=== PATIENT | male | born 1950 | race Caucasian/White ===

== ENCOUNTER 2018-06-05 15:18 | Inpatient (IN) | payer MEDICARE ==
[2018-06-05 17:39] LABS: WHITE BLOOD COUNT 8.1 10^3/ul (4.8-10.8)
[2018-06-05 17:39] LABS: ABNORMAL IP MESSAGE 1; BASOPHILS % 0.2 % (0.0-2.0); HEMATOCRIT 36.2 % (42.0-52.0); HEMOGLOBIN 11.5 g/dl (14.0-18.0); LYMPHOCYTES # 0.6 10^3/ul (0.8-2.9); LYMPHOCYTES % 7.2 % (15.0-51.0); MEAN CORPUSCULAR HEMOGLOBIN 26.6 pg (29.0-33.0); MEAN CORPUSCULAR HGB CONC 31.8 g/dl (32.0-37.0); MEAN CORPUSCULAR VOLUME 83.8 fl (82.0-101.0); MONOCYTES % 11.9 % (0.0-11.0); NEUTROPHIL # 6.5 10^3/ul (1.6-7.5); NEUTROPHILS % 80.3 % (39.0-77.0); PLATELET COUNT 217 10^3/UL (140-415); POSITIVE DIFF @See below; RED BLOOD COUNT 4.32 10^6/ul (4.70-6.10); RED CELL DISTRIBUTION WIDTH 15.7 % (11.5-14.5)
[2018-06-05 17:42] LABS: ADD MAN DIFF? NO
[2018-06-05 17:58] LABS: INR 2.04; PROTIME 23.1 Sec (11.9-14.9); PT RATIO 1.8
[2018-06-05 17:59] LABS: PARTIAL THROMBOPLASTIN TIME 49.3 Sec (23.0-35.0)
[2018-06-05 18:01] LABS: ALANINE AMINOTRANSFERASE 25 IU/L (13-69); ALBUMIN 3.7 g/dl (3.3-4.9); ALBUMIN/GLOBULIN RATIO 1.12; ALKALINE PHOSPHATASE 106 IU/L (42-121); ANION GAP 11 (5-13); ASPARTATE AMINO TRANSFERASE 30 IU/L (15-46); BILIRUBIN,INDIRECT 0.7 mg/dl (0-1.1); BILIRUBIN,TOTAL 0.7 mg/dl (0.2-1.3); BLOOD UREA NITROGEN 16 mg/dl (7-20); CALCIUM 8.8 mg/dl (8.4-10.2); CARBON DIOXIDE 29 mmol/L (21-31); CHLORIDE 94 mmol/L (97-110); CREATININE 0.81 mg/dl (0.61-1.24); Estimated GFR > 60 mL/min (>60); GLUCOSE 136 mg/dl (70-220); LIPASE 16 U/L (23-300); POTASSIUM 3.7 mmol/L (3.5-5.1); SODIUM 134 mmol/L (135-144)
[2018-06-05] MEDS: IPRATROPIUM (NEB) 0.5 MG/2.5 ML AMP INH (18:02)
[2018-06-05] MEDS: ALBUTEROL 0.083% (NEB) 2.5 MG/3 ML AMP INH (18:02)
[2018-06-05 18:08] LABS: B-TYPE NATRIURETIC PEPTIDE 5540 PG/ML (0-125)
[2018-06-05 18:12] LABS: TROPONIN-I 0.053 ng/ml (0.000-0.120)
[2018-06-05] MEDS ORDERED: HYDROCODONE/APAP (5/325) TAB PO (18:30)
[2018-06-05] MEDS ORDERED: ACETAMINOPHEN 325 MG TAB PO (18:30)
[2018-06-05] MEDS ORDERED: NITROGLYCERIN (SL) 0.4 MG TAB SL (18:30)
[2018-06-05] MEDS ORDERED: NACL 0.9% 3 ML SYG IV (18:30)
[2018-06-05] MEDS ORDERED: LORAZEPAM 4 MG/ML VIAL IV (18:30)
[2018-06-05] MEDS ORDERED: ALBUTEROL/IPRATROPIUM (NEB) 3 ML AMP HHN (18:30)
[2018-06-05] MEDS ORDERED: hydrALAzine 20 MG INJ IV (18:30)
[2018-06-05] MEDS ORDERED: ONDANSETRON 4 MG INJ IV (18:30)
[2018-06-05] MEDS ORDERED: MAGNESIUM HYDROXIDE 30ML CUP PO (18:30)
[2018-06-05] MEDS ORDERED: morphine SULFATE/PF (2 MG/2 ML) SYG IV (18:30)
[2018-06-05] MEDS ORDERED: DOCUSATE SODIUM 100 MG CAP PO (18:30)
[2018-06-05 19:04] LABS: FREE T4 (FREE THYROXINE) 1.15 ng/dl (0.78-2.44)
[2018-06-05] MEDS: NITROGLYCERIN (SL) 0.4 MG TAB SL (20:16)
[2018-06-05] MEDS: FUROSEMIDE 40 MG INJ IV (20:19)
[2018-06-05 20:25] LABS: AADO2 Arterial 517.9 mmHg (7.0-24.0); Allen Test ACCEPTAB; Arterial Base Excess 1.2 mmol/L (-3.0-3); Arterial Blood Gas Oxygen Sat 99.1 mmHG (95.0-98.0); Arterial COHb 1.3 % (0.0-3.0); Arterial Fraction of Oxyhgb 97.6 % (93.0-99.0); Arterial MetHb 0.2 % (0.0-1.5); Arterial pCO2 41.7 mmhg (35-45); Blood Gas IEPAP 15/5; MODE BIPAP; Site Right Radial
[2018-06-05] MEDS ORDERED: GLUCOSE GEL 15 GRAM TUBE PO ×2 (21:00)
[2018-06-05] MEDS ORDERED: INSULIN ASPART [NOVOLOG] 3 ML PEN SC (21:00)
[2018-06-05] MEDS ORDERED: GLUCOSE GEL 15 GRAM TUBE BUCCAL (21:00)
[2018-06-05] MEDS ORDERED: DEXTROSE 50% 50 ML SYRINGE IV ×2 (21:00)
[2018-06-05] MEDS ORDERED: GLUCAGON 1 MG INJ IM (21:00)
[2018-06-05] MEDS ORDERED: ATORVASTATIN 80 MG TAB PO (21:00)
[2018-06-05 21:24] LABS: LACTIC ACID 2.4 mmol/L (0.5-2.0)
[2018-06-05] MEDS: INSULIN GLARGINE [LANTus] (100 UNITS/ML) SYG SC (21:30)
[2018-06-05] MEDS ORDERED: LORAZEPAM 0.5 MG TAB PO (21:30)
[2018-06-05 21:41] LABS: AADO2 Arterial 116.5 mmHg (7.0-24.0); Allen Test ACCEPTAB; Arterial Base Excess 2.5 mmol/L (-3.0-3); Arterial Blood Gas Oxygen Sat 96.8 mmHG (95.0-98.0); Arterial COHb 1.5 % (0.0-3.0); Arterial Fraction of Oxyhgb 95.2 % (93.0-99.0); Arterial HCO3 27.4 mmol/L (22.0-26.0); Arterial MetHb 0.2 % (0.0-1.5); Arterial pCO2 43.4 mmhg (35-45); MODE NASAL CANNULA; Site Right Radial
[2018-06-05] MEDS: TAMSULOSIN (SR) 0.4 MG CAP PO (22:29)
[2018-06-05] MEDS: WARFARIN 10 MG TAB PO (22:29)
[2018-06-05] MEDS: ATORVASTATIN 80 MG TAB PO (22:29)
[2018-06-05] MEDS: POTASSIUM CHLORIDE (SR) 10 MEQ TAB PO (22:30)
[2018-06-05] MEDS: LEVOFLOXACIN 500 MG TAB PO (22:32)
[2018-06-06] MEDS ORDERED: ACCU-CHEK XX (02:00)
[2018-06-06] MEDS: ALBUTEROL/IPRATROPIUM (NEB) 3 ML AMP HHN ×4 (02:57→19:46)
[2018-06-06] MEDS: LEVOFLOXACIN 500 MG TAB PO (05:59)
[2018-06-06] MEDS: PANTOPRAZOLE (EC) 40 MG TAB PO (05:59)
[2018-06-06] MEDS: FUROSEMIDE 40 MG INJ IV ×2 (06:00→17:22)
[2018-06-06 06:01] LABS: ADD MAN DIFF? NO; BASOPHILS % 0.4 % (0.0-2.0); EOSINOPHILS % 0.1 % (0.0-7.0); HEMOGLOBIN 11.3 g/dl (14.0-18.0); LYMPHOCYTES # 0.8 10^3/ul (0.8-2.9); LYMPHOCYTES % 10.3 % (15.0-51.0); MEAN CORPUSCULAR HGB CONC 32.3 g/dl (32.0-37.0); MEAN CORPUSCULAR VOLUME 83.5 fl (82.0-101.0); MONOCYTE # 1.2 10^3/ul (0.3-0.9); MONOCYTES % 15.6 % (0.0-11.0); NEUTROPHIL # 5.6 10^3/ul (1.6-7.5); NEUTROPHILS % 73.1 % (39.0-77.0); PLATELET COUNT 208 10^3/UL (140-415); RED BLOOD COUNT 4.19 10^6/ul (4.70-6.10)
[2018-06-06 06:01] LABS: WHITE BLOOD COUNT 7.7 10^3/ul (4.8-10.8)
[2018-06-06 06:29] LABS: CHOLESTEROL 105 mg/dl (100-200)
[2018-06-06 06:29] LABS: CHOL/HDL RATIO 2.9 RATIO; HDL CHOLESTEROL 36 mg/dl (31-75); LDL CHOLESTEROL,CALCULATED 51 mg/dl; TRIGLYCERIDES 88 mg/dl (0-149)
[2018-06-06 06:33] LABS: HEMOGLOBIN A1C 7.6 % (0-5.9)
[2018-06-06 06:34] LABS: INR 1.98; PROTIME 22.6 Sec (11.9-14.9); PT RATIO 1.8
[2018-06-06 06:40] LABS: ANION GAP 10 (5-13); BLOOD UREA NITROGEN 18 mg/dl (7-20); CALCIUM 8.7 mg/dl (8.4-10.2); CARBON DIOXIDE 30 mmol/L (21-31); CHLORIDE 94 mmol/L (97-110); CREATININE 0.92 mg/dl (0.61-1.24); Estimated GFR > 60 mL/min (>60); GLUCOSE 148 mg/dl (70-220); MAGNESIUM 1.5 mg/dl (1.7-2.5); PHOSPHORUS 3.7 mg/dl (2.5-4.9); POTASSIUM 4.1 mmol/L (3.5-5.1); SODIUM 134 mmol/L (135-144)
[2018-06-06] MEDS: INSULIN ASPART [NOVOLOG] 3 ML PEN SC ×3 (07:42→16:39)
[2018-06-06] MEDS: metFORMIN 500 MG TAB PO ×3 (07:43→17:22)
[2018-06-06 08:22] LABS: LACTIC ACID 1.3 mmol/L (0.5-2.0)
[2018-06-06] MEDS: ASPIRIN (EC) 81 MG TAB PO (08:39)
[2018-06-06] MEDS: POTASSIUM CHLORIDE (SR) 10 MEQ TAB PO ×2 (08:39→20:29)
[2018-06-06] MEDS: FLUOXETINE 20 MG CAP PO (08:39)
[2018-06-06] MEDS: AMLODIPINE 10 MG TAB PO (08:40)
[2018-06-06] MEDS: LINAGLIPTIN 5 MG TABLET PO (12:44)
[2018-06-06] MEDS: WARFARIN 2.5 MG TAB PO (13:05)
[2018-06-06] MEDS: LISINOPRIL 10 MG TAB PO (13:05)
[2018-06-06] MEDS: WARFARIN 10 MG TAB PO (13:05)
[2018-06-06 13:25] LABS: ADD UMIC YES; UR ASCORBIC ACID NEGATIVE (NEGATIVE); UR BACTERIA FEW /HPF (NONE SEEN); UR BILIRUBIN (Dip) NEGATIVE (NEGATIVE); UR BLOOD (Dip) 2+ mg/dL (NEGATIVE); UR CLARITY CLEAR (CLEAR); UR COLOR YELLOW (YELLOW); UR GLUCOSE (Dip) 1+ mg/dL (NEGATIVE); UR KETONES (Dip) TRACE mg/dL (NEGATIVE); UR LEUKOCYTE ESTERASE (Dip) NEGATIVE Leu/ul (NEGATIVE); UR NITRITE (Dip) NEGATIVE (NEGATIVE); UR RBC 2 /HPF (0-5); UR SPECIFIC GRAVITY (Dip) 1.011 (1.003-1.030); UR TOTAL PROTEIN (Dip) 3+ mg/dl (NEGATIVE); UR UROBILINOGEN (Dip) NEGATIVE (NEGATIVE); UR WBC 2 /HPF (0-5)
[2018-06-06 13:31] LABS: CREATININE,URINE RANDOM 54.47 mg/dl (20-370)
[2018-06-06] MEDS: MAGNESIUM SULFATE 3 GM in DEXTROSE 5% 100 ML IVPB (14:03)
[2018-06-06] MEDS ORDERED: AZITHROMYCIN 250 MG in SOD CHLORIDE 0.9% 250 ML IVPB (19:00)
[2018-06-06] MEDS: AZITHROMYCIN 500MG/NS (PMX) 250 ML IV (20:19)
[2018-06-06] MEDS: TAMSULOSIN (SR) 0.4 MG CAP PO (20:28)
[2018-06-06] MEDS: ATORVASTATIN 80 MG TAB PO (20:30)
[2018-06-06] MEDS: INSULIN GLARGINE [LANTus] (100 UNITS/ML) SYG SC (20:44)
[2018-06-06 23:14] LABS: OCCULT BLOOD STOOL NEGATIVE (NEGATIVE)
[2018-06-07] MEDS: ALBUTEROL/IPRATROPIUM (NEB) 3 ML AMP HHN ×4 (01:09→19:46)
[2018-06-07 06:24] LABS: ADD MAN DIFF? NO
[2018-06-07 06:35] LABS: BASOPHILS % 0.3 % (0.0-2.0); EOSINOPHILS % 0.2 % (0.0-7.0); HEMATOCRIT 35.2 % (42.0-52.0); HEMOGLOBIN 11.2 g/dl (14.0-18.0); LYMPHOCYTES # 1.2 10^3/ul (0.8-2.9); MEAN CORPUSCULAR HGB CONC 31.8 g/dl (32.0-37.0); MEAN CORPUSCULAR VOLUME 84.8 fl (82.0-101.0); MEAN PLATELET VOLUME 10.4 fl (7.4-10.4); MONOCYTE # 1.2 10^3/ul (0.3-0.9); NEUTROPHIL # 3.6 10^3/ul (1.6-7.5); PLATELET COUNT 196 10^3/UL (140-415); RED BLOOD COUNT 4.15 10^6/ul (4.70-6.10); RED CELL DISTRIBUTION WIDTH 15.9 % (11.5-14.5)
[2018-06-07 06:37] LABS: INR 2.55; PROTIME 27.5 Sec (11.9-14.9); PT RATIO 2.1
[2018-06-07] MEDS: FUROSEMIDE 40 MG INJ IV ×2 (06:57→17:19)
[2018-06-07] MEDS: PANTOPRAZOLE (EC) 40 MG TAB PO (06:57)
[2018-06-07 07:07] LABS: ANION GAP 7 (5-13); BLOOD UREA NITROGEN 24 mg/dl (7-20); CALCIUM 8.6 mg/dl (8.4-10.2); CARBON DIOXIDE 31 mmol/L (21-31); CHLORIDE 98 mmol/L (97-110); CREATININE 1.09 mg/dl (0.61-1.24); Estimated GFR > 60 mL/min (>60); GLUCOSE 129 mg/dl (70-220); POTASSIUM 3.9 mmol/L (3.5-5.1); SODIUM 136 mmol/L (135-144)
[2018-06-07] MEDS: INSULIN ASPART [NOVOLOG] 3 ML PEN SC ×3 (07:25→17:19)
[2018-06-07] MEDS: POTASSIUM CHLORIDE (SR) 10 MEQ TAB PO ×3 (08:34→20:12)
[2018-06-07] MEDS: metFORMIN 500 MG TAB PO (08:34)
[2018-06-07] MEDS: L ACIDOPHIL/B LACTIS/B LONGUM CAPSULE PO ×2 (08:34→20:12)
[2018-06-07] MEDS: EMPAGLIFLOZIN 10 MG TABLET PO (08:35)
[2018-06-07] MEDS: LINAGLIPTIN 5 MG TABLET PO (08:35)
[2018-06-07] MEDS: FLUOXETINE 20 MG CAP PO (08:35)
[2018-06-07] MEDS: LISINOPRIL 10 MG TAB PO (08:35)
[2018-06-07] MEDS: AZITHROMYCIN 250 MG TAB PO (08:35)
[2018-06-07] MEDS: AMLODIPINE 10 MG TAB PO (08:35)
[2018-06-07] MEDS: ASPIRIN (EC) 81 MG TAB PO (08:35)
[2018-06-07 09:32] LABS: OCCULT BLOOD STOOL NEGATIVE (NEGATIVE)
[2018-06-07] MEDS: WARFARIN 10 MG TAB PO (12:43)
[2018-06-07] MEDS: metFORMIN (XR) 500 MG TAB PO (20:12)
[2018-06-07] MEDS: ATORVASTATIN 80 MG TAB PO (20:12)
[2018-06-07] MEDS: TAMSULOSIN (SR) 0.4 MG CAP PO (20:12)
[2018-06-07] MEDS: INSULIN GLARGINE [LANTus] (100 UNITS/ML) SYG SC (20:19)
[2018-06-08] MEDS: ALBUTEROL/IPRATROPIUM (NEB) 3 ML AMP HHN ×4 (02:00→19:22)
[2018-06-08] MEDS: PANTOPRAZOLE (EC) 40 MG TAB PO (05:46)
[2018-06-08] MEDS: FUROSEMIDE 40 MG INJ IV ×2 (05:46→10:46)
[2018-06-08 06:08] LABS: WHITE BLOOD COUNT 7.8 10^3/ul (4.8-10.8)
[2018-06-08 06:08] LABS: ADD MAN DIFF? NO; BASOPHILS % 0.4 % (0.0-2.0); EOSINOPHILS # 0.1 10^3/ul (0.0-0.5); HEMATOCRIT 38.6 % (42.0-52.0); HEMOGLOBIN 12.2 g/dl (14.0-18.0); LYMPHOCYTES # 1.3 10^3/ul (0.8-2.9); LYMPHOCYTES % 16.8 % (15.0-51.0); MEAN CORPUSCULAR HEMOGLOBIN 27.1 pg (29.0-33.0); MEAN CORPUSCULAR HGB CONC 31.6 g/dl (32.0-37.0); MEAN CORPUSCULAR VOLUME 85.6 fl (82.0-101.0); MEAN PLATELET VOLUME 10.1 fl (7.4-10.4); MONOCYTE # 1.1 10^3/ul (0.3-0.9); NEUTROPHIL # 5.3 10^3/ul (1.6-7.5); NEUTROPHILS % 67.4 % (39.0-77.0); PLATELET COUNT 211 10^3/UL (140-415); RED BLOOD COUNT 4.51 10^6/ul (4.70-6.10); RED CELL DISTRIBUTION WIDTH 16.2 % (11.5-14.5)
[2018-06-08 06:37] LABS: INR 2.71; PROTIME 28.8 Sec (11.9-14.9); PT RATIO 2.3
[2018-06-08 06:44] LABS: ANION GAP 10 (5-13); BLOOD UREA NITROGEN 25 mg/dl (7-20); CALCIUM 8.8 mg/dl (8.4-10.2); CARBON DIOXIDE 33 mmol/L (21-31); CHLORIDE 98 mmol/L (97-110); CREATININE 1.25 mg/dl (0.61-1.24); Estimated GFR 57 mL/min (>60); GLUCOSE 127 mg/dl (70-220); POTASSIUM 4.5 mmol/L (3.5-5.1); SODIUM 141 mmol/L (135-144)
[2018-06-08 06:46] LABS: PHOSPHORUS 3.9 mg/dl (2.5-4.9)
[2018-06-08] MEDS: INSULIN ASPART [NOVOLOG] 3 ML PEN SC ×3 (07:25→17:14)
[2018-06-08] MEDS: LISINOPRIL 10 MG TAB PO (08:09)
[2018-06-08] MEDS: POTASSIUM CHLORIDE (SR) 10 MEQ TAB PO (08:09)
[2018-06-08] MEDS: ASPIRIN (EC) 81 MG TAB PO (08:09)
[2018-06-08] MEDS: FLUOXETINE 20 MG CAP PO (08:09)
[2018-06-08] MEDS: LINAGLIPTIN 5 MG TABLET PO (08:10)
[2018-06-08] MEDS: AMLODIPINE 10 MG TAB PO (08:10)
[2018-06-08] MEDS: EMPAGLIFLOZIN 10 MG TABLET PO (08:10)
[2018-06-08] MEDS: AZITHROMYCIN 250 MG TAB PO (08:10)
[2018-06-08] MEDS: metFORMIN (XR) 500 MG TAB PO ×2 (08:10→20:29)
[2018-06-08] MEDS: L ACIDOPHIL/B LACTIS/B LONGUM CAPSULE PO ×2 (08:15→20:27)
[2018-06-08] MEDS: WARFARIN 7.5 MG TAB NGT (10:46)
[2018-06-08 13:59] LABS: COLLECTION PERIOD 24 hrs
[2018-06-08 14:51] LABS: COLLECTION PERIOD 24 hrs; SCRET 1.25 mg/dl (0.61-1.24)
[2018-06-08 14:52] LABS: CREATININE CLEARANCE 101.3 mls/min (84.0-162.0); CREATININE,URINE RANDOM 52.12 mg/dl (20-370); VOLUME 3500 ml/24hrs
[2018-06-08 14:59] LABS: VOLUME 3500 mls
[2018-06-08] MEDS: TAMSULOSIN (SR) 0.4 MG CAP PO (20:29)
[2018-06-08] MEDS: INSULIN GLARGINE [LANTus] (100 UNITS/ML) SYG SC (20:34)
[2018-06-08] MEDS: ATORVASTATIN 80 MG TAB PO (20:35)
[2018-06-09] MEDS: ALBUTEROL/IPRATROPIUM (NEB) 3 ML AMP HHN ×4 (01:24→19:44)
[2018-06-09] MEDS: PANTOPRAZOLE (EC) 40 MG TAB PO (05:26)
[2018-06-09 06:02] LABS: ADD MAN DIFF? NO
[2018-06-09 06:15] LABS: WHITE BLOOD COUNT 8.5 10^3/ul (4.8-10.8)
[2018-06-09 06:15] LABS: BASOPHILS % 0.2 % (0.0-2.0); EOSINOPHILS # 0.2 10^3/ul (0.0-0.5); EOSINOPHILS % 2.1 % (0.0-7.0); HEMATOCRIT 37.4 % (42.0-52.0); HEMOGLOBIN 11.8 g/dl (14.0-18.0); LYMPHOCYTES # 1.2 10^3/ul (0.8-2.9); LYMPHOCYTES % 14.5 % (15.0-51.0); MEAN CORPUSCULAR HEMOGLOBIN 26.7 pg (29.0-33.0); MEAN CORPUSCULAR HGB CONC 31.6 g/dl (32.0-37.0); MEAN CORPUSCULAR VOLUME 84.6 fl (82.0-101.0); MEAN PLATELET VOLUME 10.3 fl (7.4-10.4); MONOCYTES % 12.2 % (0.0-11.0); NEUTROPHILS % 70.6 % (39.0-77.0); PLATELET COUNT 209 10^3/UL (140-415); RED BLOOD COUNT 4.42 10^6/ul (4.70-6.10); RED CELL DISTRIBUTION WIDTH 16.1 % (11.5-14.5)
[2018-06-09 06:26] LABS: MAGNESIUM 1.9 mg/dl (1.7-2.5)
[2018-06-09 06:26] LABS: PHOSPHORUS 4.2 mg/dl (2.5-4.9)
[2018-06-09 06:29] LABS: INR 2.82; PROTIME 29.7 Sec (11.9-14.9); PT RATIO 2.3
[2018-06-09 06:40] LABS: ANION GAP 9 (5-13); BLOOD UREA NITROGEN 27 mg/dl (7-20); CALCIUM 8.9 mg/dl (8.4-10.2); CARBON DIOXIDE 33 mmol/L (21-31); CHLORIDE 98 mmol/L (97-110); CREATININE 1.05 mg/dl (0.61-1.24); Estimated GFR > 60 mL/min (>60); GLUCOSE 130 mg/dl (70-220); POTASSIUM 4.2 mmol/L (3.5-5.1); SODIUM 140 mmol/L (135-144)
[2018-06-09] MEDS: INSULIN ASPART [NOVOLOG] 3 ML PEN SC ×3 (07:25→17:24)
[2018-06-09] MEDS: L ACIDOPHIL/B LACTIS/B LONGUM CAPSULE PO ×2 (07:43→20:24)
[2018-06-09] MEDS: ASPIRIN (EC) 81 MG TAB PO (07:43)
[2018-06-09] MEDS: metFORMIN (XR) 500 MG TAB PO ×2 (07:43→20:24)
[2018-06-09] MEDS: LINAGLIPTIN 5 MG TABLET PO (07:44)
[2018-06-09] MEDS: AZITHROMYCIN 250 MG TAB PO (07:44)
[2018-06-09] MEDS: FLUOXETINE 20 MG CAP PO (07:44)
[2018-06-09] MEDS: LISINOPRIL 10 MG TAB PO (07:44)
[2018-06-09] MEDS: AMLODIPINE 10 MG TAB PO (07:45)
[2018-06-09] MEDS: POTASSIUM CHLORIDE (SR) 10 MEQ TAB PO ×2 (09:14→20:24)
[2018-06-09] MEDS: WARFARIN 2.5 MG TAB PO (09:14)
[2018-06-09 13:28] LABS: AADO2 Arterial 31.5 mmHg (7.0-24.0); Allen Test ACCEPTAB; Arterial Base Excess 3.2 mmol/L (-3.0-3); Arterial Blood Gas Oxygen Sat 91.9 mmHG (95.0-98.0); Arterial COHb 0.6 % (0.0-3.0); Arterial Fraction of Oxyhgb 91.2 % (93.0-99.0); Arterial HCO3 27.9 mmol/L (22.0-26.0); Arterial MetHb 0.2 % (0.0-1.5); MODE ROOM AIR; Site Right Radial
[2018-06-09] MEDS: FUROSEMIDE 40 MG INJ IV (17:25)
[2018-06-09] MEDS: INSULIN ASP PROT/ASPART (70/30) PEN SC (17:27)
[2018-06-09] MEDS: TAMSULOSIN (SR) 0.4 MG CAP PO (20:23)
[2018-06-09] MEDS: ATORVASTATIN 80 MG TAB PO (20:24)
[2018-06-10] MEDS: ALBUTEROL/IPRATROPIUM (NEB) 3 ML AMP HHN ×4 (01:31→19:43)
[2018-06-10] MEDS: PANTOPRAZOLE (EC) 40 MG TAB PO (05:11)
[2018-06-10] MEDS: FUROSEMIDE 40 MG INJ IV ×2 (05:12→18:09)
[2018-06-10] MEDS: INSULIN ASPART [NOVOLOG] 3 ML PEN SC ×3 (07:25→18:08)
[2018-06-10] MEDS: metFORMIN (XR) 500 MG TAB PO ×2 (07:29→20:41)
[2018-06-10] MEDS: INSULIN ASP PROT/ASPART (70/30) PEN SC ×2 (07:37→18:08)
[2018-06-10 07:46] LABS: ADD MAN DIFF? NO
[2018-06-10 08:10] LABS: INR 2.64; PROTIME 28.2 Sec (11.9-14.9); PT RATIO 2.2
[2018-06-10 08:13] LABS: ANION GAP 5 (5-13); BLOOD UREA NITROGEN 22 mg/dl (7-20); CALCIUM 9.1 mg/dl (8.4-10.2); CARBON DIOXIDE 31 mmol/L (21-31); CHLORIDE 100 mmol/L (97-110); CREATININE 1.18 mg/dl (0.61-1.24); Estimated GFR > 60 mL/min (>60); GLUCOSE 134 mg/dl (70-220); POTASSIUM 4.6 mmol/L (3.5-5.1); SODIUM 136 mmol/L (135-144)
[2018-06-10 08:19] LABS: BASOPHILS % 0.3 % (0.0-2.0); EOSINOPHILS # 0.2 10^3/ul (0.0-0.5); EOSINOPHILS % 2.5 % (0.0-7.0); HEMATOCRIT 38.6 % (42.0-52.0); LYMPHOCYTES # 1.3 10^3/ul (0.8-2.9); LYMPHOCYTES % 13.2 % (15.0-51.0); MEAN CORPUSCULAR HEMOGLOBIN 26.5 pg (29.0-33.0); MEAN CORPUSCULAR HGB CONC 31.1 g/dl (32.0-37.0); MEAN CORPUSCULAR VOLUME 85.4 fl (82.0-101.0); MEAN PLATELET VOLUME 10.9 fl (7.4-10.4); MONOCYTE # 1.1 10^3/ul (0.3-0.9); MONOCYTES % 11.2 % (0.0-11.0); NEUTROPHIL # 6.9 10^3/ul (1.6-7.5); NEUTROPHILS % 72.2 % (39.0-77.0); PLATELET COUNT 236 10^3/UL (140-415); RED BLOOD COUNT 4.52 10^6/ul (4.70-6.10)
[2018-06-10 08:19] LABS: WHITE BLOOD COUNT 9.5 10^3/ul (4.8-10.8)
[2018-06-10] MEDS: AZITHROMYCIN 250 MG TAB PO (08:23)
[2018-06-10] MEDS: FLUOXETINE 20 MG CAP PO (08:23)
[2018-06-10] MEDS: L ACIDOPHIL/B LACTIS/B LONGUM CAPSULE PO ×2 (08:24→20:40)
[2018-06-10] MEDS: POTASSIUM CHLORIDE (SR) 10 MEQ TAB PO ×2 (08:24→20:42)
[2018-06-10] MEDS: ASPIRIN (EC) 81 MG TAB PO (08:24)
[2018-06-10] MEDS: LISINOPRIL 10 MG TAB PO (08:26)
[2018-06-10] MEDS: AMLODIPINE 10 MG TAB PO (08:26)
[2018-06-10] MEDS ORDERED: METHYLPREDNISOLONE (MEDROL) DOSE PACK PO (09:00)
[2018-06-10] MEDS: WARFARIN 3 MG TAB PO (09:05)
[2018-06-10] MEDS: METHYLPREDNISOLONE 4 MG TAB PO (10:36)
[2018-06-10] MEDS: POLYETHYLENE GLYCOL 17 GM PACKET PO ×2 (12:35→15:15)
[2018-06-10] MEDS: LACTULOSE 30ML CUP PO ×4 (12:35→20:45)
[2018-06-10] MEDS: TAMSULOSIN (SR) 0.4 MG CAP PO (20:40)
[2018-06-10] MEDS: ATORVASTATIN 80 MG TAB PO (20:40)
[2018-06-11] MEDS: ALBUTEROL/IPRATROPIUM (NEB) 3 ML AMP HHN ×4 (01:32→19:52)
[2018-06-11] MEDS: PANTOPRAZOLE (EC) 40 MG TAB PO (05:16)
[2018-06-11] MEDS: FUROSEMIDE 40 MG INJ IV ×2 (06:51→17:58)
[2018-06-11 07:00] LABS: ADD MAN DIFF? NO
[2018-06-11 07:03] LABS: WHITE BLOOD COUNT 11.7 10^3/ul (4.8-10.8)
[2018-06-11 07:03] LABS: BASOPHILS % 0.3 % (0.0-2.0); EOSINOPHILS % 0.3 % (0.0-7.0); HEMATOCRIT 39.4 % (42.0-52.0); HEMOGLOBIN 12.4 g/dl (14.0-18.0); LYMPHOCYTES # 0.9 10^3/ul (0.8-2.9); MEAN CORPUSCULAR HEMOGLOBIN 26.3 pg (29.0-33.0); MEAN CORPUSCULAR HGB CONC 31.5 g/dl (32.0-37.0); MEAN CORPUSCULAR VOLUME 83.5 fl (82.0-101.0); MEAN PLATELET VOLUME 10.4 fl (7.4-10.4); MONOCYTE # 1.1 10^3/ul (0.3-0.9); MONOCYTES % 9.7 % (0.0-11.0); NEUTROPHIL # 9.5 10^3/ul (1.6-7.5); NEUTROPHILS % 81.2 % (39.0-77.0); PLATELET COUNT 261 10^3/UL (140-415); RED BLOOD COUNT 4.72 10^6/ul (4.70-6.10); RED CELL DISTRIBUTION WIDTH 15.8 % (11.5-14.5)
[2018-06-11 07:23] LABS: INR 2.05; PROTIME 23.2 Sec (11.9-14.9); PT RATIO 1.8
[2018-06-11] MEDS: INSULIN ASPART [NOVOLOG] 3 ML PEN SC ×3 (07:25→18:14)
[2018-06-11 07:30] LABS: ANION GAP 11 (5-13); BLOOD UREA NITROGEN 19 mg/dl (7-20); CALCIUM 9.2 mg/dl (8.4-10.2); CARBON DIOXIDE 30 mmol/L (21-31); CHLORIDE 97 mmol/L (97-110); CREATININE 1.08 mg/dl (0.61-1.24); Estimated GFR > 60 mL/min (>60); GLUCOSE 145 mg/dl (70-220); POTASSIUM 4.9 mmol/L (3.5-5.1); SODIUM 138 mmol/L (135-144)
[2018-06-11 07:49] LABS: PHOSPHORUS 4.1 mg/dl (2.5-4.9)
[2018-06-11] MEDS: L ACIDOPHIL/B LACTIS/B LONGUM CAPSULE PO ×2 (08:43→21:39)
[2018-06-11] MEDS: ASPIRIN (EC) 81 MG TAB PO (08:43)
[2018-06-11] MEDS: metFORMIN (XR) 500 MG TAB PO ×2 (08:43→21:38)
[2018-06-11] MEDS: LISINOPRIL 10 MG TAB PO (08:43)
[2018-06-11] MEDS: FLUOXETINE 20 MG CAP PO (08:43)
[2018-06-11] MEDS: POTASSIUM CHLORIDE (SR) 10 MEQ TAB PO ×2 (08:43→21:39)
[2018-06-11] MEDS: INSULIN ASP PROT/ASPART (70/30) PEN SC ×2 (08:43→18:14)
[2018-06-11] MEDS: METHYLPREDNISOLONE 4 MG TAB PO ×4 (08:43→22:02)
[2018-06-11] MEDS: AMLODIPINE 10 MG TAB PO (08:43)
[2018-06-11] MEDS: DEXTROSE 5% 1,000 ML IV (08:44)
[2018-06-11] MEDS: WARFARIN 3 MG TAB PO (17:58)
[2018-06-11] MEDS: TAMSULOSIN (SR) 0.4 MG CAP PO (21:37)
[2018-06-11] MEDS: ATORVASTATIN 80 MG TAB PO (21:39)
[2018-06-11] MEDS ORDERED: morphine LIQ (10 MG/5 ML) CUP PO (23:30)
[2018-06-12] MEDS: ALBUTEROL/IPRATROPIUM (NEB) 3 ML AMP HHN ×4 (01:28→20:14)
[2018-06-12] MEDS: DEXTROSE 5% 1,000 ML IV (04:30)
[2018-06-12 06:36] LABS: ADD MAN DIFF? NO
[2018-06-12 06:53] LABS: BASOPHILS % 0.2 % (0.0-2.0); EOSINOPHILS # 0.1 10^3/ul (0.0-0.5); EOSINOPHILS % 0.9 % (0.0-7.0); HEMATOCRIT 39.3 % (42.0-52.0); HEMOGLOBIN 12.5 g/dl (14.0-18.0); LYMPHOCYTES % 8.3 % (15.0-51.0); MEAN CORPUSCULAR HEMOGLOBIN 26.6 pg (29.0-33.0); MEAN CORPUSCULAR HGB CONC 31.8 g/dl (32.0-37.0); MEAN CORPUSCULAR VOLUME 83.6 fl (82.0-101.0); MEAN PLATELET VOLUME 10.5 fl (7.4-10.4); MONOCYTE # 1.1 10^3/ul (0.3-0.9); MONOCYTES % 8.7 % (0.0-11.0); NEUTROPHIL # 9.9 10^3/ul (1.6-7.5); NEUTROPHILS % 81.2 % (39.0-77.0); PLATELET COUNT 283 10^3/UL (140-415); RED CELL DISTRIBUTION WIDTH 15.9 % (11.5-14.5)
[2018-06-12 06:53] LABS: WHITE BLOOD COUNT 12.2 10^3/ul (4.8-10.8)
[2018-06-12 07:05] LABS: INR 2.11; PROTIME 23.7 Sec (11.9-14.9); PT RATIO 1.9
[2018-06-12 07:22] LABS: ANION GAP 8 (5-13); BLOOD UREA NITROGEN 22 mg/dl (7-20); CALCIUM 9.1 mg/dl (8.4-10.2); CARBON DIOXIDE 30 mmol/L (21-31); CHLORIDE 97 mmol/L (97-110); CREATININE 1.22 mg/dl (0.61-1.24); Estimated GFR 59 mL/min (>60); GLUCOSE 182 mg/dl (70-220); POTASSIUM 4.7 mmol/L (3.5-5.1); SODIUM 135 mmol/L (135-144)
[2018-06-12 07:26] LABS: MAGNESIUM 1.9 mg/dl (1.7-2.5)
[2018-06-12] MEDS: L ACIDOPHIL/B LACTIS/B LONGUM CAPSULE PO ×2 (08:34→21:00)
[2018-06-12] MEDS: METHYLPREDNISOLONE 4 MG TAB PO ×2 (08:35→13:07)
[2018-06-12] MEDS: POTASSIUM CHLORIDE (SR) 10 MEQ TAB PO (08:35)
[2018-06-12] MEDS: FLUOXETINE 20 MG CAP PO (08:35)
[2018-06-12] MEDS: FUROSEMIDE 40 MG TAB PO (08:35)
[2018-06-12] MEDS: LISINOPRIL 10 MG TAB PO (08:35)
[2018-06-12] MEDS: metFORMIN (XR) 500 MG TAB PO ×2 (08:36→21:01)
[2018-06-12] MEDS: AMLODIPINE 10 MG TAB PO (08:36)
[2018-06-12] MEDS: PANTOPRAZOLE (EC) 40 MG TAB PO (08:36)
[2018-06-12] MEDS: ASPIRIN (EC) 81 MG TAB PO (08:39)
[2018-06-12] MEDS: INSULIN ASP PROT/ASPART (70/30) PEN SC ×2 (08:42→17:55)
[2018-06-12] MEDS: INSULIN ASPART [NOVOLOG] 3 ML PEN SC ×3 (08:43→17:54)
[2018-06-12] MEDS: TAMSULOSIN (SR) 0.4 MG CAP PO (21:00)
[2018-06-12] MEDS ORDERED: METHYLPREDNISOLONE 4 MG TAB PO (21:00)
[2018-06-12] MEDS: ATORVASTATIN 80 MG TAB PO (21:01)
[2018-06-13] MEDS: ALBUTEROL/IPRATROPIUM (NEB) 3 ML AMP HHN ×3 (01:15→14:00)
[2018-06-13] MEDS: PANTOPRAZOLE (EC) 40 MG TAB PO (05:57)
[2018-06-13 06:06] LABS: ADD MAN DIFF? NO
[2018-06-13 06:12] LABS: BASOPHILS % 0.3 % (0.0-2.0); EOSINOPHILS # 0.2 10^3/ul (0.0-0.5); EOSINOPHILS % 1.3 % (0.0-7.0); HEMATOCRIT 39.9 % (42.0-52.0); HEMOGLOBIN 12.6 g/dl (14.0-18.0); LYMPHOCYTES # 1.4 10^3/ul (0.8-2.9); LYMPHOCYTES % 9.7 % (15.0-51.0); MEAN CORPUSCULAR HEMOGLOBIN 26.6 pg (29.0-33.0); MEAN CORPUSCULAR HGB CONC 31.6 g/dl (32.0-37.0); MEAN CORPUSCULAR VOLUME 84.4 fl (82.0-101.0); MONOCYTE # 1.3 10^3/ul (0.3-0.9); NEUTROPHIL # 11.4 10^3/ul (1.6-7.5); NEUTROPHILS % 79.1 % (39.0-77.0); PLATELET COUNT 315 10^3/UL (140-415); RED BLOOD COUNT 4.73 10^6/ul (4.70-6.10); RED CELL DISTRIBUTION WIDTH 15.9 % (11.5-14.5)
[2018-06-13 06:12] LABS: WHITE BLOOD COUNT 14.4 10^3/ul (4.8-10.8)
[2018-06-13 06:44] LABS: ANION GAP 8 (5-13); Estimated GFR 59 mL/min (>60)
[2018-06-13 06:45] LABS: BLOOD UREA NITROGEN 26 mg/dl (7-20); CALCIUM 9.5 mg/dl (8.4-10.2); CARBON DIOXIDE 31 mmol/L (21-31); CHLORIDE 97 mmol/L (97-110); CREATININE 1.22 mg/dl (0.61-1.24); GLUCOSE 165 mg/dl (70-220); POTASSIUM 4.9 mmol/L (3.5-5.1); SODIUM 136 mmol/L (135-144)
[2018-06-13] MEDS: ETOMIDATE 20 MG INJ (07:31)
[2018-06-13] MEDS: FENTAnyl 50 MCG/ML VIAL (07:31)
[2018-06-13] MEDS: MIDAZOLAM 1 MG/ML 2 ML INJ (07:32)
[2018-06-13] MEDS: metFORMIN (XR) 500 MG TAB PO (08:21)
[2018-06-13] MEDS: L ACIDOPHIL/B LACTIS/B LONGUM CAPSULE PO (08:21)
[2018-06-13] MEDS: ASPIRIN (EC) 81 MG TAB PO (08:21)
[2018-06-13] MEDS: POTASSIUM CHLORIDE (SR) 10 MEQ TAB PO (08:22)
[2018-06-13] MEDS: AMLODIPINE 10 MG TAB PO (08:22)
[2018-06-13] MEDS: LISINOPRIL 10 MG TAB PO (08:23)
[2018-06-13] MEDS: FLUOXETINE 20 MG CAP PO (08:23)
[2018-06-13] MEDS: FUROSEMIDE 40 MG TAB PO (08:23)
[2018-06-13] MEDS: INSULIN ASPART [NOVOLOG] 3 ML PEN SC ×2 (08:35→12:29)
[2018-06-13] MEDS: INSULIN ASP PROT/ASPART (70/30) PEN SC (08:35)
== END 2018-06-13 15:35 | disposition home health service (06) | DRG 202 ==
LOC: E/R 15:18 → TEL 18:26
PROC: 0DJD8ZZ Inspection of Lower Intestinal Tract, Via Natural or Artificial Opening Endoscopic (ICD-10-PCS; principal; 2018-06-11 14:40)
DX: J20.8 Acute bronchitis due to other specified organisms (principal); I50.33 Acute on chronic diastolic (congestive) heart failure; I42.9 Cardiomyopathy, unspecified; I48.91 Unspecified atrial fibrillation; I11.0 Hypertensive heart disease with heart failure; Z87.891 Personal history of nicotine dependence; Z79.01 Long term (current) use of anticoagulants; E66.01 Morbid (severe) obesity due to excess calories; Z68.33 Body mass index [BMI] 33.0-33.9, adult; N40.0 Benign prostatic hyperplasia without lower urinary tract symptoms; E78.00 Pure hypercholesterolemia, unspecified; E11.51 Type 2 diabetes mellitus with diabetic peripheral angiopathy without gangrene; Z89.411 Acquired absence of right great toe; Z89.421 Acquired absence of other right toe(s); E11.621 Type 2 diabetes mellitus with foot ulcer; L97.529 Non-pressure chronic ulcer of other part of left foot with unspecified severity; Z79.4 Long term (current) use of insulin; R06.89 Other abnormalities of breathing; R09.02 Hypoxemia; G47.33 Obstructive sleep apnea (adult) (pediatric); K52.9 Noninfective gastroenteritis and colitis, unspecified; I48.2 Chronic atrial fibrillation; Z86.73 Personal history of transient ischemic attack (TIA), and cerebral infarction without residual deficits; I25.10 Atherosclerotic heart disease of native coronary artery without angina pectoris; D12.2 Benign neoplasm of ascending colon
CPT/HCPCS: 11042; 36415; 36600; 71045; 76775; 76856; 80048; 80053; 80061; 81001; 81003; 82270; 82570; 82575; 82803; 82962; 83036; 83605; 83690; 83735; 83880; 84100; 84156; 84439; 84443; 84484; 85025; 85610; 85730; 87040; 87075; 87086; 87177; 87400; 92526; 92610; 93005; 93306; 93970; 94640; 94660; 94664; 97110; 97116; 97161; 97167; 97530; 99285-25

== ENCOUNTER 2018-06-26 14:06 | Inpatient (IN) | payer MEDICARE ==
[2018-06-26] MEDS: ACETAMINOPHEN 325 MG TAB PO (14:48)
[2018-06-26] MEDS: SODIUM CHLORIDE 0.9% 1L BAG IV* (14:49)
[2018-06-26] MEDS: PIPER-TAZO 3.375 GM IV (PMX) 100 ML IVPB ×2 (14:50→19:59)
[2018-06-26 15:02] LABS: ADD MAN DIFF? NO
[2018-06-26 15:05] LABS: WHITE BLOOD COUNT 17.1 10^3/ul (4.8-10.8)
[2018-06-26 15:05] LABS: ABNORMAL IP MESSAGE 1; BASOPHILS % 0.2 % (0.0-2.0); EOSINOPHILS # 0.2 10^3/ul (0.0-0.5); EOSINOPHILS % 1.4 % (0.0-7.0); HEMATOCRIT 40.1 % (42.0-52.0); HEMOGLOBIN 12.6 g/dl (14.0-18.0); LYMPHOCYTES # 1.1 10^3/ul (0.8-2.9); LYMPHOCYTES % 6.4 % (15.0-51.0); MEAN CORPUSCULAR HEMOGLOBIN 26.6 pg (29.0-33.0); MEAN CORPUSCULAR HGB CONC 31.4 g/dl (32.0-37.0); MEAN CORPUSCULAR VOLUME 84.6 fl (82.0-101.0); MEAN PLATELET VOLUME 10.1 fl (7.4-10.4); MONOCYTE # 1.8 10^3/ul (0.3-0.9); MONOCYTES % 10.4 % (0.0-11.0); NEUTROPHIL # 13.8 10^3/ul (1.6-7.5); NEUTROPHILS % 81.1 % (39.0-77.0); PLATELET COUNT 314 10^3/UL (140-415); POSITIVE DIFF @See below; RED BLOOD COUNT 4.74 10^6/ul (4.70-6.10); RED CELL DISTRIBUTION WIDTH 16.8 % (11.5-14.5)
[2018-06-26 15:23] LABS: ALANINE AMINOTRANSFERASE 19 IU/L (13-69); ALBUMIN 3.8 g/dl (3.3-4.9); ALBUMIN/GLOBULIN RATIO 1.11; ALKALINE PHOSPHATASE 106 IU/L (42-121); ANION GAP 12 (5-13); ASPARTATE AMINO TRANSFERASE 27 IU/L (15-46); BILIRUBIN,INDIRECT 0.3 mg/dl (0-1.1); BILIRUBIN,TOTAL 0.3 mg/dl (0.2-1.3); BLOOD UREA NITROGEN 17 mg/dl (7-20); C-REACTIVE PROTEIN 2.8 mg/dl (0.0-0.9); CALCIUM 9.4 mg/dl (8.4-10.2); CARBON DIOXIDE 27 mmol/L (21-31); CHLORIDE 98 mmol/L (97-110); CREATININE 1.05 mg/dl (0.61-1.24); Estimated GFR > 60 mL/min (>60); GLUCOSE 123 mg/dl (70-220); INR 3.32; PROTIME 33.7 Sec (11.9-14.9); PT RATIO 2.6; SODIUM 137 mmol/L (135-144); TOTAL PROTEIN 7.2 g/dl (6.1-8.1)
[2018-06-26 15:31] LABS: PARTIAL THROMBOPLASTIN TIME 54.2 Sec (23.0-35.0)
[2018-06-26 15:32] LABS: TROPONIN-I 0.023 ng/ml (0.000-0.120)
[2018-06-26] MEDS: VANCOMYCIN 1 GM (PMX) 250 ML IVPB (15:47)
[2018-06-26] MEDS ORDERED: HYDROCODONE/APAP (5/325) TAB PO (16:00)
[2018-06-26] MEDS ORDERED: VANCOMYCIN IV PER PHARMACY XX (16:00)
[2018-06-26] MEDS ORDERED: NACL 0.9% 3 ML SYG IV (16:00)
[2018-06-26] MEDS ORDERED: ONDANSETRON 4 MG INJ IV (16:00)
[2018-06-26] MEDS ORDERED: ZOLPIDEM 5 MG TAB PO (16:00)
[2018-06-26 16:48] LABS: ERYTHROCYTE SEDIMENTATION RATE 46 mm/Hr (0-20)
[2018-06-26] MEDS ORDERED: WARFARIN 10 MG TAB PO (17:00)
[2018-06-26] MEDS ORDERED: DEXTROSE 50% 50 ML SYRINGE IV ×2 (18:00)
[2018-06-26] MEDS ORDERED: GLUCAGON 1 MG INJ IM (18:00)
[2018-06-26] MEDS ORDERED: GLUCOSE GEL 15 GRAM TUBE BUCCAL (18:00)
[2018-06-26] MEDS ORDERED: GLUCOSE GEL 15 GRAM TUBE PO ×2 (18:00)
[2018-06-26] MEDS: SOD CHLORIDE 0.9% 1,000 ML IV (19:47)
[2018-06-26] MEDS: INSULIN ASPART [NOVOLOG] 3 ML PEN SC (20:00)
[2018-06-26] MEDS: metFORMIN 500 MG TAB PO (20:04)
[2018-06-26] MEDS: NPH, HUMAN INSULIN ISOPHANE 3ML VIAL SC (20:30)
[2018-06-26 21:00] LABS: LACTIC ACID 1.3 mmol/L (0.5-2.0)
[2018-06-26] MEDS: TAMSULOSIN (SR) 0.4 MG CAP PO (21:21)
[2018-06-26] MEDS: ATORVASTATIN 80 MG TAB PO (21:21)
[2018-06-27] MEDS: VANCOMYCIN HCL 1.5 GM in SOD CHLORIDE 0.9% 250 ML IVPB ×3 (01:42→22:11)
[2018-06-27] MEDS: ACCU-CHEK XX (02:35)
[2018-06-27] MEDS ORDERED: PENDING SANTYL ORDER FOR WOUND CARE XX (03:30)
[2018-06-27] MEDS: PIPER-TAZO 3.375 GM IV (PMX) 100 ML IVPB ×4 (04:42→17:30)
[2018-06-27 06:16] LABS: ADD MAN DIFF? NO
[2018-06-27 06:25] LABS: BASOPHILS % 0.2 % (0.0-2.0); EOSINOPHILS # 0.2 10^3/ul (0.0-0.5); EOSINOPHILS % 1.9 % (0.0-7.0); HEMATOCRIT 34.4 % (42.0-52.0); HEMOGLOBIN 10.7 g/dl (14.0-18.0); LYMPHOCYTES % 8.3 % (15.0-51.0); MEAN CORPUSCULAR HEMOGLOBIN 26.4 pg (29.0-33.0); MEAN CORPUSCULAR HGB CONC 31.1 g/dl (32.0-37.0); MEAN CORPUSCULAR VOLUME 84.7 fl (82.0-101.0); MONOCYTE # 1.3 10^3/ul (0.3-0.9); NEUTROPHIL # 9.4 10^3/ul (1.6-7.5); NEUTROPHILS % 78.2 % (39.0-77.0); PLATELET COUNT 221 10^3/UL (140-415); RED BLOOD COUNT 4.06 10^6/ul (4.70-6.10); RED CELL DISTRIBUTION WIDTH 16.7 % (11.5-14.5)
[2018-06-27 06:25] LABS: HEMOGLOBIN A1C 7.5 % (0-5.9); WHITE BLOOD COUNT 12.1 10^3/ul (4.8-10.8)
[2018-06-27] MEDS: PANTOPRAZOLE (EC) 40 MG TAB PO (06:37)
[2018-06-27 06:38] LABS: INR 3.05; PROTIME 31.6 Sec (11.9-14.9); PT RATIO 2.5
[2018-06-27 06:45] LABS: ALANINE AMINOTRANSFERASE 27 IU/L (13-69); ALBUMIN 2.9 g/dl (3.3-4.9); ALBUMIN/GLOBULIN RATIO 0.96; ALKALINE PHOSPHATASE 80 IU/L (42-121); ANION GAP 12 (5-13); ASPARTATE AMINO TRANSFERASE 22 IU/L (15-46); BILIRUBIN,INDIRECT 0.6 mg/dl (0-1.1); BILIRUBIN,TOTAL 0.6 mg/dl (0.2-1.3); BLOOD UREA NITROGEN 14 mg/dl (7-20); CARBON DIOXIDE 24 mmol/L (21-31); CHLORIDE 104 mmol/L (97-110); CREATININE 0.85 mg/dl (0.61-1.24); Estimated GFR > 60 mL/min (>60); GLUCOSE 177 mg/dl (70-220); POTASSIUM 3.9 mmol/L (3.5-5.1); SODIUM 140 mmol/L (135-144); TOTAL PROTEIN 5.9 g/dl (6.1-8.1)
[2018-06-27 07:47] LABS: MAGNESIUM 1.6 mg/dl (1.7-2.5)
[2018-06-27 07:47] LABS: PHOSPHORUS 2.5 mg/dl (2.5-4.9)
[2018-06-27] MEDS: LISINOPRIL 20 MG TAB PO (08:26)
[2018-06-27] MEDS: FLUOXETINE 20 MG CAP PO (08:26)
[2018-06-27] MEDS: AMLODIPINE 10 MG TAB PO (08:26)
[2018-06-27] MEDS: INSULIN ASPART [NOVOLOG] 3 ML PEN SC ×3 (08:30→17:29)
[2018-06-27] MEDS: NPH, HUMAN INSULIN ISOPHANE 3ML VIAL SC ×2 (08:32→17:28)
[2018-06-27] MEDS: metFORMIN 500 MG TAB PO ×2 (08:33→18:21)
[2018-06-27] MEDS ORDERED: NON-FORMULARY/PATIENT OWN MED (Omeprazole* 20 MG) PO (09:00)
[2018-06-27] MEDS: SOD CHLORIDE 0.9% 1,000 ML IV (11:54)
[2018-06-27] MEDS: ATORVASTATIN 80 MG TAB PO (22:11)
[2018-06-27] MEDS: TAMSULOSIN (SR) 0.4 MG CAP PO (22:11)
[2018-06-28] MEDS: PIPER-TAZO 3.375 GM IV (PMX) 100 ML IVPB ×4 (01:23→17:24)
[2018-06-28] MEDS: ACCU-CHEK XX (02:00)
[2018-06-28] MEDS: PANTOPRAZOLE (EC) 40 MG TAB PO (05:57)
[2018-06-28 06:09] LABS: ADD MAN DIFF? NO
[2018-06-28 06:13] LABS: WHITE BLOOD COUNT 10.1 10^3/ul (4.8-10.8)
[2018-06-28 06:13] LABS: BASOPHILS % 0.3 % (0.0-2.0); EOSINOPHILS # 0.2 10^3/ul (0.0-0.5); EOSINOPHILS % 2.4 % (0.0-7.0); HEMATOCRIT 34.3 % (42.0-52.0); HEMOGLOBIN 10.8 g/dl (14.0-18.0); MEAN CORPUSCULAR HEMOGLOBIN 26.8 pg (29.0-33.0); MEAN CORPUSCULAR HGB CONC 31.5 g/dl (32.0-37.0); MEAN CORPUSCULAR VOLUME 85.1 fl (82.0-101.0); MEAN PLATELET VOLUME 10.2 fl (7.4-10.4); MONOCYTES % 10.3 % (0.0-11.0); NEUTROPHIL # 7.7 10^3/ul (1.6-7.5); NEUTROPHILS % 76.6 % (39.0-77.0); PLATELET COUNT 220 10^3/UL (140-415); RED BLOOD COUNT 4.03 10^6/ul (4.70-6.10); RED CELL DISTRIBUTION WIDTH 16.8 % (11.5-14.5)
[2018-06-28 06:36] LABS: ANION GAP 12 (5-13); BLOOD UREA NITROGEN 13 mg/dl (7-20); CALCIUM 8.4 mg/dl (8.4-10.2); CARBON DIOXIDE 23 mmol/L (21-31); CHLORIDE 105 mmol/L (97-110); CREATININE 0.86 mg/dl (0.61-1.24); Estimated GFR > 60 mL/min (>60); GLUCOSE 137 mg/dl (70-220); SODIUM 140 mmol/L (135-144)
[2018-06-28] MEDS: INSULIN ASPART [NOVOLOG] 3 ML PEN SC ×3 (07:30→17:26)
[2018-06-28] MEDS: NPH, HUMAN INSULIN ISOPHANE 3ML VIAL SC ×2 (08:34→17:27)
[2018-06-28] MEDS: LISINOPRIL 20 MG TAB PO (08:36)
[2018-06-28] MEDS: AMLODIPINE 10 MG TAB PO (08:36)
[2018-06-28] MEDS: FLUOXETINE 20 MG CAP PO (08:36)
[2018-06-28] MEDS: SOD CHLORIDE 0.9% 1,000 ML IV (08:37)
[2018-06-28] MEDS: metFORMIN 500 MG TAB PO ×2 (08:37→17:28)
[2018-06-28 10:53] LABS: INR 1.89; PROTIME 21.8 Sec (11.9-14.9); PT RATIO 1.7
[2018-06-28 11:02] LABS: VANCOMYCIN,TROUGH 12.5 ug/ml (10.0-20.0)
[2018-06-28] MEDS: VANCOMYCIN HCL 1.5 GM in SOD CHLORIDE 0.9% 250 ML IVPB ×2 (12:15→21:49)
[2018-06-28] MEDS: WARFARIN 10 MG TAB PO (13:47)
[2018-06-28] MEDS: ATORVASTATIN 80 MG TAB PO (20:33)
[2018-06-28] MEDS: TAMSULOSIN (SR) 0.4 MG CAP PO (20:33)
[2018-06-29] MEDS: PIPER-TAZO 3.375 GM IV (PMX) 100 ML IVPB ×4 (01:06→17:39)
[2018-06-29] MEDS: ACCU-CHEK XX (03:31)
[2018-06-29] MEDS: SOD CHLORIDE 0.9% 1,000 ML IV (05:38)
[2018-06-29] MEDS: PANTOPRAZOLE (EC) 40 MG TAB PO (05:39)
[2018-06-29 05:49] LABS: ADD MAN DIFF? NO
[2018-06-29 05:52] LABS: WHITE BLOOD COUNT 12.2 10^3/ul (4.8-10.8)
[2018-06-29 05:52] LABS: BASOPHILS % 0.3 % (0.0-2.0); EOSINOPHILS # 0.2 10^3/ul (0.0-0.5); EOSINOPHILS % 1.8 % (0.0-7.0); HEMATOCRIT 35.6 % (42.0-52.0); HEMOGLOBIN 11.3 g/dl (14.0-18.0); LYMPHOCYTES # 0.8 10^3/ul (0.8-2.9); LYMPHOCYTES % 6.3 % (15.0-51.0); MEAN CORPUSCULAR HGB CONC 31.7 g/dl (32.0-37.0); MEAN PLATELET VOLUME 10.5 fl (7.4-10.4); MONOCYTE # 1.1 10^3/ul (0.3-0.9); MONOCYTES % 8.9 % (0.0-11.0); NEUTROPHILS % 82.2 % (39.0-77.0); PLATELET COUNT 227 10^3/UL (140-415); RED BLOOD COUNT 4.19 10^6/ul (4.70-6.10); RED CELL DISTRIBUTION WIDTH 16.9 % (11.5-14.5)
[2018-06-29 06:12] LABS: INR 1.57; PROTIME 18.9 Sec (11.9-14.9); PT RATIO 1.5
[2018-06-29 08:18] LABS: ERYTHROCYTE SEDIMENTATION RATE 55 mm/Hr (0-20)
[2018-06-29] MEDS: INSULIN ASPART [NOVOLOG] 3 ML PEN SC ×3 (08:21→17:41)
[2018-06-29] MEDS: NPH, HUMAN INSULIN ISOPHANE 3ML VIAL SC ×2 (08:22→17:42)
[2018-06-29] MEDS: metFORMIN 500 MG TAB PO ×2 (08:24→17:50)
[2018-06-29] MEDS: RIFAMPIN 300 MG CAP PO (08:24)
[2018-06-29] MEDS: DOXYCYCLINE 100 MG TAB PO ×2 (08:24→21:53)
[2018-06-29] MEDS: AMLODIPINE 10 MG TAB PO (08:25)
[2018-06-29] MEDS: FLUOXETINE 20 MG CAP PO (08:25)
[2018-06-29] MEDS: L ACIDOPHIL/B LACTIS/B LONGUM CAPSULE PO ×2 (08:25→21:53)
[2018-06-29] MEDS: LISINOPRIL 20 MG TAB PO (08:26)
[2018-06-29] MEDS: ACETAMINOPHEN 325 MG TAB PO (08:26)
[2018-06-29] MEDS: POTASSIUM CHLORIDE (SR) 20 MEQ TAB PO (10:06)
[2018-06-29] MEDS: WARFARIN 7.5 MG TAB PO (10:06)
[2018-06-29] MEDS: FUROSEMIDE 40 MG TAB PO (10:07)
[2018-06-29] MEDS: MUPIROCIN 2% 22 GM OINT TOP (10:07)
[2018-06-29] MEDS: LIDOCAINE 1% (MPF) 5 ML VIAL SC (11:10)
[2018-06-29] MEDS: MAGNESIUM SULFATE 3 GM in DEXTROSE 5% 100 ML IVPB (12:52)
[2018-06-29] MEDS: ATORVASTATIN 80 MG TAB PO (21:53)
[2018-06-29] MEDS: TAMSULOSIN (SR) 0.4 MG CAP PO (21:53)
[2018-06-30] MEDS: PIPER-TAZO 3.375 GM IV (PMX) 100 ML IVPB ×3 (00:16→11:38)
[2018-06-30] MEDS: ACCU-CHEK XX (00:17)
[2018-06-30] MEDS: PANTOPRAZOLE (EC) 40 MG TAB PO (05:20)
[2018-06-30 05:36] LABS: ADD MAN DIFF? NO
[2018-06-30 05:46] LABS: WHITE BLOOD COUNT 10.1 10^3/ul (4.8-10.8)
[2018-06-30 05:46] LABS: BASOPHILS % 0.4 % (0.0-2.0); EOSINOPHILS # 0.2 10^3/ul (0.0-0.5); EOSINOPHILS % 1.8 % (0.0-7.0); HEMATOCRIT 33.4 % (42.0-52.0); HEMOGLOBIN 10.4 g/dl (14.0-18.0); LYMPHOCYTES # 0.9 10^3/ul (0.8-2.9); MEAN CORPUSCULAR HEMOGLOBIN 26.2 pg (29.0-33.0); MEAN CORPUSCULAR HGB CONC 31.1 g/dl (32.0-37.0); MEAN CORPUSCULAR VOLUME 84.1 fl (82.0-101.0); MEAN PLATELET VOLUME 10.4 fl (7.4-10.4); MONOCYTES % 10.1 % (0.0-11.0); NEUTROPHIL # 7.9 10^3/ul (1.6-7.5); NEUTROPHILS % 78.3 % (39.0-77.0); PLATELET COUNT 213 10^3/UL (140-415); RED BLOOD COUNT 3.97 10^6/ul (4.70-6.10); RED CELL DISTRIBUTION WIDTH 16.8 % (11.5-14.5)
[2018-06-30 06:06] LABS: INR 1.73; PROTIME 20.3 Sec (11.9-14.9); PT RATIO 1.6
[2018-06-30 06:13] LABS: ANION GAP 9 (5-13); BLOOD UREA NITROGEN 10 mg/dl (7-20); CALCIUM 8.4 mg/dl (8.4-10.2); CARBON DIOXIDE 26 mmol/L (21-31); CHLORIDE 102 mmol/L (97-110); CREATININE 0.82 mg/dl (0.61-1.24); Estimated GFR > 60 mL/min (>60); GLUCOSE 157 mg/dl (70-220); MAGNESIUM 1.8 mg/dl (1.7-2.5); PHOSPHORUS 3.1 mg/dl (2.5-4.9); POTASSIUM 3.6 mmol/L (3.5-5.1); SODIUM 137 mmol/L (135-144)
[2018-06-30] MEDS: INSULIN ASPART [NOVOLOG] 3 ML PEN SC ×2 (08:20→11:37)
[2018-06-30] MEDS: NPH, HUMAN INSULIN ISOPHANE 3ML VIAL SC (08:20)
[2018-06-30] MEDS: metFORMIN 500 MG TAB PO (08:26)
[2018-06-30] MEDS: L ACIDOPHIL/B LACTIS/B LONGUM CAPSULE PO (08:26)
[2018-06-30] MEDS: POTASSIUM CHLORIDE (SR) 20 MEQ TAB PO (08:27)
[2018-06-30] MEDS: FUROSEMIDE 40 MG TAB PO (08:30)
[2018-06-30] MEDS: LISINOPRIL 20 MG TAB PO (08:31)
[2018-06-30] MEDS: FLUOXETINE 20 MG CAP PO (08:31)
[2018-06-30] MEDS: DOXYCYCLINE 100 MG TAB PO (08:31)
[2018-06-30] MEDS: AMLODIPINE 10 MG TAB PO (08:31)
[2018-06-30] MEDS: RIFAMPIN 300 MG CAP PO (08:31)
[2018-06-30] MEDS: MUPIROCIN 2% 22 GM OINT TOP (08:33)
[2018-06-30] MEDS: WARFARIN 7.5 MG TAB PO (10:06)
[2018-06-30] MEDS: POTASSIUM CHLORIDE (SR) 10 MEQ TAB PO (10:06)
== END 2018-06-30 14:23 | disposition home or self-care (01) | DRG 638 ==
LOC: E/R 14:06 → PP2 16:03
PROC: 02HV33Z Insertion of Infusion Device into Superior Vena Cava, Percutaneous Approach (ICD-10-PCS; principal; 2018-06-29)
DX: E11.621 Type 2 diabetes mellitus with foot ulcer (principal); M86.9 Osteomyelitis, unspecified; I50.30 Unspecified diastolic (congestive) heart failure; Z68.42 Body mass index [BMI] 45.0-49.9, adult; E11.69 Type 2 diabetes mellitus with other specified complication; I11.0 Hypertensive heart disease with heart failure; E66.01 Morbid (severe) obesity due to excess calories; Z79.02 Long term (current) use of antithrombotics/antiplatelets; I48.91 Unspecified atrial fibrillation; J44.9 Chronic obstructive pulmonary disease, unspecified; L97.509 Non-pressure chronic ulcer of other part of unspecified foot with unspecified severity; B95.62 Methicillin resistant Staphylococcus aureus infection as the cause of diseases classified elsewhere; B95.1 Streptococcus, group B, as the cause of diseases classified elsewhere; Z95.1 Presence of aortocoronary bypass graft
CPT/HCPCS: 29581; 36415; 36569; 71045; 73630-LT; 76882-RT; 76937; 80048; 80053; 80202; 82962; 83036; 83605; 83735; 84100; 84443; 84484; 85025; 85610; 85651; 85730; 86140; 87040; 87070; 87081; 93005; 96365; 96367; 99291-25

== ENCOUNTER 2018-07-09 09:52 | Inpatient (IN) | payer MEDICARE ==
[2018-07-09] MEDS: PIPER-TAZO 3.375 GM IV (PMX) 100 ML IVPB ×3 (13:00→23:20)
[2018-07-09] MEDS ORDERED: GLUCOSE GEL 15 GRAM TUBE BUCCAL (14:00)
[2018-07-09] MEDS ORDERED: GLUCOSE GEL 15 GRAM TUBE PO ×2 (14:00)
[2018-07-09] MEDS ORDERED: GLUCAGON 1 MG INJ IM (14:00)
[2018-07-09] MEDS ORDERED: DEXTROSE 50% 50 ML SYRINGE IV ×2 (14:00)
[2018-07-09] MEDS ORDERED: NACL 0.9% 3 ML SYG IV (14:00)
[2018-07-09 14:17] LABS: WHITE BLOOD COUNT 9.2 10^3/ul (4.8-10.8)
[2018-07-09 14:17] LABS: ADD MAN DIFF? NO; BASOPHILS % 0.4 % (0.0-2.0); EOSINOPHILS # 0.4 10^3/ul (0.0-0.5); EOSINOPHILS % 4.1 % (0.0-7.0); HEMATOCRIT 33.3 % (42.0-52.0); HEMOGLOBIN 10.1 g/dl (14.0-18.0); LYMPHOCYTES # 1.3 10^3/ul (0.8-2.9); MEAN CORPUSCULAR HEMOGLOBIN 26.4 pg (29.0-33.0); MEAN CORPUSCULAR HGB CONC 30.3 g/dl (32.0-37.0); MEAN CORPUSCULAR VOLUME 87.2 fl (82.0-101.0); MEAN PLATELET VOLUME 10.5 fl (7.4-10.4); MONOCYTE # 1.1 10^3/ul (0.3-0.9); MONOCYTES % 11.4 % (0.0-11.0); NEUTROPHIL # 6.4 10^3/ul (1.6-7.5); NEUTROPHILS % 69.7 % (39.0-77.0); PLATELET COUNT 265 10^3/UL (140-415); RED BLOOD COUNT 3.82 10^6/ul (4.70-6.10); RED CELL DISTRIBUTION WIDTH 17.7 % (11.5-14.5)
[2018-07-09] MEDS ORDERED: PENDING SANTYL ORDER FOR WOUND CARE XX (14:30)
[2018-07-09 14:39] LABS: ALANINE AMINOTRANSFERASE 20 IU/L (13-69); ALKALINE PHOSPHATASE 86 IU/L (42-121); ANION GAP 2 (5-13); ASPARTATE AMINO TRANSFERASE 16 IU/L (15-46); BILIRUBIN,INDIRECT 0.1 mg/dl (0-1.1); BILIRUBIN,TOTAL 0.1 mg/dl (0.2-1.3); BLOOD UREA NITROGEN 10 mg/dl (7-20); CALCIUM 8.7 mg/dl (8.4-10.2); CARBON DIOXIDE 31 mmol/L (21-31); CHLORIDE 105 mmol/L (97-110); CREATININE 0.89 mg/dl (0.61-1.24); Estimated GFR > 60 mL/min (>60); GLUCOSE 218 mg/dl (70-220); INR 1.46; MAGNESIUM 1.6 mg/dl (1.7-2.5); PHOSPHORUS 3.1 mg/dl (2.5-4.9); POTASSIUM 3.7 mmol/L (3.5-5.1); PROTIME 17.8 Sec (11.9-14.9); PT RATIO 1.4; SODIUM 138 mmol/L (135-144); TOTAL PROTEIN 6.3 g/dl (6.1-8.1)
[2018-07-09] MEDS: NYSTATIN 30 GM POWDER BTL TOP ×2 (16:07→20:44)
[2018-07-09 17:08] LABS: ADD UMIC YES; UR ASCORBIC ACID NEGATIVE (NEGATIVE); UR BILIRUBIN (Dip) NEGATIVE (NEGATIVE); UR BLOOD (Dip) 1+ mg/dL (NEGATIVE); UR CLARITY CLEAR (CLEAR); UR COLOR YELLOW (YELLOW); UR GLUCOSE (Dip) 1+ mg/dL (NEGATIVE); UR KETONES (Dip) NEGATIVE (NEGATIVE); UR LEUKOCYTE ESTERASE (Dip) NEGATIVE Leu/ul (NEGATIVE); UR NITRITE (Dip) NEGATIVE (NEGATIVE); UR RBC 6 /HPF (0-5); UR SPECIFIC GRAVITY (Dip) 1.045 (1.003-1.030); UR TOTAL PROTEIN (Dip) 3+ mg/dl (NEGATIVE); UR UROBILINOGEN (Dip) NEGATIVE (NEGATIVE); UR WBC 2 /HPF (0-5)
[2018-07-09] MEDS: INSULIN ASP PROT/ASPART (70/30) PEN SC (17:25)
[2018-07-09] MEDS: metFORMIN 500 MG TAB PO (17:47)
[2018-07-09] MEDS: INSULIN ASPART [NOVOLOG] 3 ML PEN SC ×2 (17:55→22:01)
[2018-07-09] MEDS: TAMSULOSIN (SR) 0.4 MG CAP PO (20:45)
[2018-07-09] MEDS: ATORVASTATIN 80 MG TAB PO (20:45)
[2018-07-09] MEDS: WARFARIN 7.5 MG TAB PO (20:45)
[2018-07-09] MEDS: L ACIDOPHIL/B LACTIS/B LONGUM CAPSULE PO (20:50)
[2018-07-10] MEDS: ACCU-CHEK XX (02:39)
[2018-07-10] MEDS: PANTOPRAZOLE (EC) 40 MG TAB PO (05:12)
[2018-07-10] MEDS: PIPER-TAZO 3.375 GM IV (PMX) 100 ML IVPB ×4 (05:12→23:29)
[2018-07-10 07:21] LABS: ADD MAN DIFF? NO
[2018-07-10 07:25] LABS: BASOPHILS % 0.5 % (0.0-2.0); EOSINOPHILS # 0.4 10^3/ul (0.0-0.5); EOSINOPHILS % 4.7 % (0.0-7.0); HEMATOCRIT 32.4 % (42.0-52.0); HEMOGLOBIN 9.9 g/dl (14.0-18.0); LYMPHOCYTES # 1.4 10^3/ul (0.8-2.9); LYMPHOCYTES % 16.8 % (15.0-51.0); MEAN CORPUSCULAR HEMOGLOBIN 26.8 pg (29.0-33.0); MEAN CORPUSCULAR HGB CONC 30.6 g/dl (32.0-37.0); MEAN CORPUSCULAR VOLUME 87.6 fl (82.0-101.0); MEAN PLATELET VOLUME 10.8 fl (7.4-10.4); MONOCYTES % 11.4 % (0.0-11.0); NEUTROPHIL # 5.5 10^3/ul (1.6-7.5); NEUTROPHILS % 66.1 % (39.0-77.0); PLATELET COUNT 276 10^3/UL (140-415); RED CELL DISTRIBUTION WIDTH 17.8 % (11.5-14.5)
[2018-07-10 07:25] LABS: WHITE BLOOD COUNT 8.4 10^3/ul (4.8-10.8)
[2018-07-10 07:43] LABS: INR 1.28; PROTIME 16.1 Sec (11.9-14.9); PT RATIO 1.3
[2018-07-10 07:48] LABS: HEMOGLOBIN A1C 7.4 % (0-5.9)
[2018-07-10 07:51] LABS: ANION GAP 2 (5-13); BLOOD UREA NITROGEN 11 mg/dl (7-20); CALCIUM 8.8 mg/dl (8.4-10.2); CARBON DIOXIDE 32 mmol/L (21-31); CHLORIDE 104 mmol/L (97-110); CREATININE 1.04 mg/dl (0.61-1.24); Estimated GFR > 60 mL/min (>60); GLUCOSE 171 mg/dl (70-220); POTASSIUM 3.9 mmol/L (3.5-5.1); SODIUM 138 mmol/L (135-144)
[2018-07-10] MEDS: FLUOXETINE 20 MG CAP PO (08:11)
[2018-07-10] MEDS: FUROSEMIDE 40 MG TAB PO (08:11)
[2018-07-10] MEDS: POTASSIUM CHLORIDE (SR) 8 MEQ CAP PO (08:12)
[2018-07-10] MEDS: LISINOPRIL 20 MG TAB PO (08:12)
[2018-07-10] MEDS: AMLODIPINE 10 MG TAB PO (08:13)
[2018-07-10] MEDS: MUPIROCIN 2% 22 GM OINT TOP ×3 (08:13→20:30)
[2018-07-10] MEDS: L ACIDOPHIL/B LACTIS/B LONGUM CAPSULE PO ×2 (08:13→20:25)
[2018-07-10] MEDS: NYSTATIN 30 GM POWDER BTL TOP ×2 (08:14→20:30)
[2018-07-10] MEDS: INSULIN ASP PROT/ASPART (70/30) PEN SC ×2 (08:16→17:27)
[2018-07-10 08:18] LABS: C-REACTIVE PROTEIN 2.3 mg/dl (0.0-0.9)
[2018-07-10] MEDS: metFORMIN 500 MG TAB PO ×2 (08:21→17:42)
[2018-07-10] MEDS: INSULIN ASPART [NOVOLOG] 3 ML PEN SC ×4 (08:31→20:30)
[2018-07-10] MEDS: RIFAMPIN 300 MG CAP PO ×2 (08:31→11:55)
[2018-07-10] MEDS: PSYLLIUM (SUGAR FREE) PACKET PO (08:31)
[2018-07-10 09:10] LABS: ERYTHROCYTE SEDIMENTATION RATE 50 mm/Hr (0-20)
[2018-07-10] MEDS: WARFARIN 10 MG TAB PO (17:23)
[2018-07-10] MEDS: TAMSULOSIN (SR) 0.4 MG CAP PO (20:25)
[2018-07-10] MEDS: ATORVASTATIN 80 MG TAB PO (20:26)
[2018-07-11] MEDS: ACCU-CHEK XX (02:00)
[2018-07-11] MEDS: PIPER-TAZO 3.375 GM IV (PMX) 100 ML IVPB ×4 (06:21→23:48)
[2018-07-11] MEDS: PANTOPRAZOLE (EC) 40 MG TAB PO (06:21)
[2018-07-11] MEDS: INSULIN ASPART [NOVOLOG] 3 ML PEN SC ×4 (08:02→20:57)
[2018-07-11] MEDS: INSULIN ASP PROT/ASPART (70/30) PEN SC ×2 (08:09→17:39)
[2018-07-11] MEDS: RIFAMPIN 300 MG CAP PO (08:24)
[2018-07-11] MEDS: POTASSIUM CHLORIDE (SR) 8 MEQ CAP PO (08:24)
[2018-07-11] MEDS: metFORMIN 500 MG TAB PO ×2 (08:24→17:42)
[2018-07-11] MEDS: FLUOXETINE 20 MG CAP PO (08:25)
[2018-07-11] MEDS: LISINOPRIL 20 MG TAB PO (08:25)
[2018-07-11] MEDS: AMLODIPINE 10 MG TAB PO (08:25)
[2018-07-11] MEDS: L ACIDOPHIL/B LACTIS/B LONGUM CAPSULE PO ×2 (08:25→20:58)
[2018-07-11] MEDS: FUROSEMIDE 40 MG TAB PO (08:26)
[2018-07-11] MEDS: MUPIROCIN 2% 22 GM OINT TOP ×2 (08:26→20:59)
[2018-07-11] MEDS: PSYLLIUM (SUGAR FREE) PACKET PO (08:27)
[2018-07-11] MEDS: NYSTATIN 30 GM POWDER BTL TOP ×2 (08:27→20:59)
[2018-07-11 08:32] LABS: ADD MAN DIFF? NO
[2018-07-11 08:34] LABS: BASOPHIL # 0.1 10^3/ul (0.0-0.1); BASOPHILS % 0.7 % (0.0-2.0); EOSINOPHILS # 0.3 10^3/ul (0.0-0.5); EOSINOPHILS % 4.1 % (0.0-7.0); HEMOGLOBIN 9.6 g/dl (14.0-18.0); LYMPHOCYTES # 1.3 10^3/ul (0.8-2.9); LYMPHOCYTES % 15.6 % (15.0-51.0); MEAN CORPUSCULAR HEMOGLOBIN 26.4 pg (29.0-33.0); MEAN CORPUSCULAR VOLUME 88.2 fl (82.0-101.0); MEAN PLATELET VOLUME 10.9 fl (7.4-10.4); MONOCYTE # 0.8 10^3/ul (0.3-0.9); MONOCYTES % 9.9 % (0.0-11.0); NEUTROPHIL # 5.6 10^3/ul (1.6-7.5); NEUTROPHILS % 69.1 % (39.0-77.0); PLATELET COUNT 273 10^3/UL (140-415); RED BLOOD COUNT 3.63 10^6/ul (4.70-6.10); RED CELL DISTRIBUTION WIDTH 17.5 % (11.5-14.5)
[2018-07-11 08:34] LABS: WHITE BLOOD COUNT 8.1 10^3/ul (4.8-10.8)
[2018-07-11 08:50] LABS: INR 1.35; PROTIME 16.8 Sec (11.9-14.9); PT RATIO 1.3
[2018-07-11 08:53] LABS: ANION GAP 6 (5-13); BLOOD UREA NITROGEN 11 mg/dl (7-20); CALCIUM 8.7 mg/dl (8.4-10.2); CARBON DIOXIDE 31 mmol/L (21-31); CHLORIDE 101 mmol/L (97-110); CREATININE 1.13 mg/dl (0.61-1.24); Estimated GFR > 60 mL/min (>60); GLUCOSE 144 mg/dl (70-220); POTASSIUM 3.9 mmol/L (3.5-5.1); SODIUM 138 mmol/L (135-144)
[2018-07-11] MEDS: METOPROLOL (XL) 25 MG TAB PO (10:26)
[2018-07-11] MEDS: WARFARIN 10 MG TAB NGT (17:30)
[2018-07-11] MEDS: ATORVASTATIN 80 MG TAB PO (20:58)
[2018-07-11] MEDS: TAMSULOSIN (SR) 0.4 MG CAP PO (20:59)
[2018-07-12] MEDS: ACCU-CHEK XX (02:00)
[2018-07-12] MEDS: PIPER-TAZO 3.375 GM IV (PMX) 100 ML IVPB ×3 (05:54→17:29)
[2018-07-12] MEDS: PANTOPRAZOLE (EC) 40 MG TAB PO (05:54)
[2018-07-12 06:35] LABS: INR 1.66; PROTIME 19.7 Sec (11.9-14.9); PT RATIO 1.5
[2018-07-12] MEDS ORDERED: LOPERAMIDE HCL 1 MG/5 ML LIQUID (10 ML UD CUP) PO (07:00)
[2018-07-12] MEDS: FLUOXETINE 20 MG CAP PO (08:11)
[2018-07-12] MEDS: AMLODIPINE 10 MG TAB PO (08:11)
[2018-07-12] MEDS: LISINOPRIL 20 MG TAB PO (08:12)
[2018-07-12] MEDS: METOPROLOL (XL) 25 MG TAB PO (08:12)
[2018-07-12] MEDS: POTASSIUM CHLORIDE (SR) 8 MEQ CAP PO (08:12)
[2018-07-12] MEDS: NYSTATIN 30 GM POWDER BTL TOP ×2 (08:12→20:46)
[2018-07-12] MEDS: RIFAMPIN 300 MG CAP PO (08:13)
[2018-07-12] MEDS: FUROSEMIDE 40 MG TAB PO (08:14)
[2018-07-12] MEDS: PSYLLIUM (SUGAR FREE) PACKET PO (08:14)
[2018-07-12] MEDS: MUPIROCIN 2% 22 GM OINT TOP ×2 (08:18→20:47)
[2018-07-12] MEDS: INSULIN ASP PROT/ASPART (70/30) PEN SC ×2 (08:24→17:38)
[2018-07-12] MEDS: INSULIN ASPART [NOVOLOG] 3 ML PEN SC ×4 (08:24→20:45)
[2018-07-12] MEDS: metFORMIN 500 MG TAB PO ×2 (08:44→17:29)
[2018-07-12] MEDS: L ACIDOPHIL/B LACTIS/B LONGUM CAPSULE PO ×2 (08:44→20:46)
[2018-07-12] MEDS: ENOXAPARIN 100 MG/ML SYG SC ×2 (15:19→21:10)
[2018-07-12] MEDS: TAMSULOSIN (SR) 0.4 MG CAP PO (20:45)
[2018-07-12] MEDS: ATORVASTATIN 80 MG TAB PO (20:46)
[2018-07-13] MEDS: PIPER-TAZO 3.375 GM IV (PMX) 100 ML IVPB ×4 (00:56→17:27)
[2018-07-13] MEDS: ACCU-CHEK XX (02:00)
[2018-07-13] MEDS: PANTOPRAZOLE (EC) 40 MG TAB PO (05:47)
[2018-07-13 06:25] LABS: PROTIME 24.5 Sec (11.9-14.9); PT RATIO 1.9
[2018-07-13] MEDS: INSULIN ASP PROT/ASPART (70/30) PEN SC ×2 (07:25→17:43)
[2018-07-13] MEDS: INSULIN ASPART [NOVOLOG] 3 ML PEN SC ×4 (07:55→20:26)
[2018-07-13] MEDS: metFORMIN 500 MG TAB PO ×2 (07:55→18:18)
[2018-07-13] MEDS: PSYLLIUM (SUGAR FREE) PACKET PO (09:00)
[2018-07-13] MEDS: MUPIROCIN 2% 22 GM OINT TOP ×2 (09:00→21:03)
[2018-07-13] MEDS: NYSTATIN 30 GM POWDER BTL TOP ×2 (09:00→20:17)
[2018-07-13] MEDS: REGADENOSON 0.4 MG/5 ML SYG (09:10)
[2018-07-13] MEDS: ASPIRIN (EC) 81 MG TAB PO (10:00)
[2018-07-13] MEDS: FUROSEMIDE 40 MG TAB PO (11:50)
[2018-07-13] MEDS: LISINOPRIL 20 MG TAB PO (11:51)
[2018-07-13] MEDS: POTASSIUM CHLORIDE (SR) 8 MEQ CAP PO (11:51)
[2018-07-13] MEDS: L ACIDOPHIL/B LACTIS/B LONGUM CAPSULE PO ×2 (11:51→20:17)
[2018-07-13] MEDS: RIFAMPIN 300 MG CAP PO (11:51)
[2018-07-13] MEDS: FLUOXETINE 20 MG CAP PO (11:51)
[2018-07-13] MEDS: METOPROLOL (XL) 25 MG TAB PO (11:52)
[2018-07-13] MEDS: AMLODIPINE 10 MG TAB PO (11:52)
[2018-07-13] MEDS: ENOXAPARIN 100 MG/ML SYG SC ×2 (12:18→20:27)
[2018-07-13] MEDS ORDERED: VANCOMYCIN IV PER PHARMACY XX (18:30)
[2018-07-13] MEDS: TAMSULOSIN (SR) 0.4 MG CAP PO (20:17)
[2018-07-13] MEDS: ATORVASTATIN 80 MG TAB PO (20:17)
[2018-07-13] MEDS: VANCOMYCIN HCL 2 GM in SOD CHLORIDE 0.9% 500 ML IVPB (21:09)
[2018-07-14] MEDS: PIPER-TAZO 3.375 GM IV (PMX) 100 ML IVPB ×5 (00:36→23:27)
[2018-07-14] MEDS: ACCU-CHEK XX ×2 (01:05→23:28)
[2018-07-14] MEDS: VANCOMYCIN HCL 1.5 GM in SOD CHLORIDE 0.9% 250 ML IVPB ×2 (03:43→15:00)
[2018-07-14] MEDS: PANTOPRAZOLE (EC) 40 MG TAB PO (05:36)
[2018-07-14 07:15] LABS: ADD MAN DIFF? NO
[2018-07-14 07:26] LABS: BASOPHIL # 0.1 10^3/ul (0.0-0.1); BASOPHILS % 0.7 % (0.0-2.0); EOSINOPHILS # 0.4 10^3/ul (0.0-0.5); EOSINOPHILS % 3.3 % (0.0-7.0); HEMATOCRIT 35.1 % (42.0-52.0); HEMOGLOBIN 10.8 g/dl (14.0-18.0); LYMPHOCYTES # 1.2 10^3/ul (0.8-2.9); LYMPHOCYTES % 11.3 % (15.0-51.0); MEAN CORPUSCULAR HEMOGLOBIN 26.9 pg (29.0-33.0); MEAN CORPUSCULAR HGB CONC 30.8 g/dl (32.0-37.0); MEAN CORPUSCULAR VOLUME 87.5 fl (82.0-101.0); MEAN PLATELET VOLUME 10.9 fl (7.4-10.4); MONOCYTE # 1.1 10^3/ul (0.3-0.9); MONOCYTES % 10.1 % (0.0-11.0); NEUTROPHIL # 7.9 10^3/ul (1.6-7.5); PLATELET COUNT 341 10^3/UL (140-415); RED BLOOD COUNT 4.01 10^6/ul (4.70-6.10); RED CELL DISTRIBUTION WIDTH 17.7 % (11.5-14.5)
[2018-07-14 07:26] LABS: WHITE BLOOD COUNT 10.7 10^3/ul (4.8-10.8)
[2018-07-14 07:45] LABS: INR 2.03; PT RATIO 1.8
[2018-07-14 07:58] LABS: ALANINE AMINOTRANSFERASE 16 IU/L (13-69); ALBUMIN/GLOBULIN RATIO 0.88; ALKALINE PHOSPHATASE 74 IU/L (42-121); ANION GAP 3 (5-13); ASPARTATE AMINO TRANSFERASE 20 IU/L (15-46); BILIRUBIN,INDIRECT 0.2 mg/dl (0-1.1); BILIRUBIN,TOTAL 0.2 mg/dl (0.2-1.3); BLOOD UREA NITROGEN 12 mg/dl (7-20); CALCIUM 8.7 mg/dl (8.4-10.2); CARBON DIOXIDE 32 mmol/L (21-31); CHLORIDE 102 mmol/L (97-110); CREATININE 1.03 mg/dl (0.61-1.24); Estimated GFR > 60 mL/min (>60); GLUCOSE 122 mg/dl (70-220); MAGNESIUM 1.7 mg/dl (1.7-2.5); PHOSPHORUS 3.3 mg/dl (2.5-4.9); POTASSIUM 4.1 mmol/L (3.5-5.1); SODIUM 137 mmol/L (135-144); TOTAL PROTEIN 6.4 g/dl (6.1-8.1)
[2018-07-14 08:01] LABS: B-TYPE NATRIURETIC PEPTIDE 4850 PG/ML (0-125)
[2018-07-14] MEDS: metFORMIN 500 MG TAB PO ×2 (08:08→18:33)
[2018-07-14] MEDS: INSULIN ASPART [NOVOLOG] 3 ML PEN SC ×4 (08:44→20:12)
[2018-07-14] MEDS: INSULIN ASP PROT/ASPART (70/30) PEN SC ×2 (08:44→17:25)
[2018-07-14] MEDS: RIFAMPIN 300 MG CAP PO (09:00)
[2018-07-14] MEDS: LISINOPRIL 20 MG TAB PO (09:28)
[2018-07-14] MEDS: FLUOXETINE 20 MG CAP PO (09:28)
[2018-07-14] MEDS: AMLODIPINE 10 MG TAB PO (09:28)
[2018-07-14] MEDS: FUROSEMIDE 40 MG TAB PO (09:28)
[2018-07-14] MEDS: PSYLLIUM (SUGAR FREE) PACKET PO (09:29)
[2018-07-14] MEDS: METOPROLOL (XL) 25 MG TAB PO (09:29)
[2018-07-14] MEDS: POTASSIUM CHLORIDE (SR) 8 MEQ CAP PO (09:29)
[2018-07-14] MEDS: L ACIDOPHIL/B LACTIS/B LONGUM CAPSULE PO ×2 (09:29→20:12)
[2018-07-14] MEDS: ASPIRIN (EC) 81 MG TAB PO (09:29)
[2018-07-14] MEDS: ENOXAPARIN 100 MG/ML SYG SC ×2 (09:35→20:18)
[2018-07-14] MEDS: MUPIROCIN 2% 22 GM OINT TOP ×2 (09:35→20:12)
[2018-07-14] MEDS: NYSTATIN 30 GM POWDER BTL TOP ×2 (09:39→20:12)
[2018-07-14] MEDS: PHYTONADIONE 5 MG in DEXTROSE 5% 50 ML IVPB (14:00)
[2018-07-14] MEDS: TAMSULOSIN (SR) 0.4 MG CAP PO (20:12)
[2018-07-14] MEDS: ATORVASTATIN 80 MG TAB PO (20:12)
[2018-07-15] MEDS: VANCOMYCIN HCL 1.5 GM in SOD CHLORIDE 0.9% 250 ML IVPB ×2 (02:24→16:13)
[2018-07-15] MEDS: PIPER-TAZO 3.375 GM IV (PMX) 100 ML IVPB ×3 (05:58→18:24)
[2018-07-15] MEDS: PANTOPRAZOLE (EC) 40 MG TAB PO (05:58)
[2018-07-15] MEDS: INSULIN ASPART [NOVOLOG] 3 ML PEN SC ×4 (07:55→20:15)
[2018-07-15] MEDS: L ACIDOPHIL/B LACTIS/B LONGUM CAPSULE PO ×2 (08:56→20:11)
[2018-07-15] MEDS: metFORMIN 500 MG TAB PO (08:56)
[2018-07-15] MEDS: ASPIRIN (EC) 81 MG TAB PO (08:57)
[2018-07-15] MEDS: RIFAMPIN 300 MG CAP PO (08:57)
[2018-07-15] MEDS: POTASSIUM CHLORIDE (SR) 8 MEQ CAP PO (08:57)
[2018-07-15] MEDS: FLUOXETINE 20 MG CAP PO (08:57)
[2018-07-15] MEDS: FUROSEMIDE 40 MG TAB PO (08:58)
[2018-07-15] MEDS: AMLODIPINE 10 MG TAB PO (08:58)
[2018-07-15] MEDS: LISINOPRIL 20 MG TAB PO ×2 (08:58→11:19)
[2018-07-15] MEDS: METOPROLOL (XL) 25 MG TAB PO (08:59)
[2018-07-15] MEDS: PSYLLIUM (SUGAR FREE) PACKET PO ×2 (09:00→17:34)
[2018-07-15] MEDS: NYSTATIN 30 GM POWDER BTL TOP ×2 (09:02→20:11)
[2018-07-15] MEDS: MUPIROCIN 2% 22 GM OINT TOP ×2 (09:02→20:14)
[2018-07-15] MEDS: ENOXAPARIN 100 MG/ML SYG SC (09:09)
[2018-07-15] MEDS: INSULIN ASP PROT/ASPART (70/30) PEN SC ×2 (09:09→17:40)
[2018-07-15 15:44] LABS: VANCOMYCIN,TROUGH 17.7 ug/ml (10.0-20.0)
[2018-07-15] MEDS: TAMSULOSIN (SR) 0.4 MG CAP PO (20:11)
[2018-07-15] MEDS: ATORVASTATIN 80 MG TAB PO (20:11)
[2018-07-16] MEDS: HEPARIN 1000 UNITS/ML 10 ML INJ IRR
[2018-07-16] MEDS: DEXTROSE 5% 1,000 ML IV ×2 (00:11→20:00)
[2018-07-16] MEDS: PIPER-TAZO 3.375 GM IV (PMX) 100 ML IVPB ×4 (00:11→17:42)
[2018-07-16] MEDS: ACCU-CHEK XX (01:40)
[2018-07-16] MEDS: VANCOMYCIN HCL 1.25 GM in SOD CHLORIDE 0.9% 250 ML IVPB ×2 (04:28→17:43)
[2018-07-16] MEDS: PANTOPRAZOLE (EC) 40 MG TAB PO (05:59)
[2018-07-16 08:08] LABS: ADD MAN DIFF? NO
[2018-07-16 08:13] LABS: BASOPHIL # 0.1 10^3/ul (0.0-0.1); BASOPHILS % 0.7 % (0.0-2.0); EOSINOPHILS # 0.3 10^3/ul (0.0-0.5); EOSINOPHILS % 3.9 % (0.0-7.0); HEMATOCRIT 32.5 % (42.0-52.0); LYMPHOCYTES % 13.2 % (15.0-51.0); MEAN CORPUSCULAR HEMOGLOBIN 26.8 pg (29.0-33.0); MEAN CORPUSCULAR HGB CONC 30.8 g/dl (32.0-37.0); MEAN CORPUSCULAR VOLUME 87.1 fl (82.0-101.0); MEAN PLATELET VOLUME 10.3 fl (7.4-10.4); MONOCYTE # 0.8 10^3/ul (0.3-0.9); MONOCYTES % 10.5 % (0.0-11.0); NEUTROPHIL # 5.4 10^3/ul (1.6-7.5); PLATELET COUNT 311 10^3/UL (140-415); RED BLOOD COUNT 3.73 10^6/ul (4.70-6.10); RED CELL DISTRIBUTION WIDTH 17.8 % (11.5-14.5)
[2018-07-16 08:13] LABS: WHITE BLOOD COUNT 7.6 10^3/ul (4.8-10.8)
[2018-07-16 08:36] LABS: ANION GAP 8 (5-13); BLOOD UREA NITROGEN 11 mg/dl (7-20); C-REACTIVE PROTEIN 1.3 mg/dl (0.0-0.9); CALCIUM 8.5 mg/dl (8.4-10.2); CARBON DIOXIDE 31 mmol/L (21-31); CHLORIDE 98 mmol/L (97-110); CREATININE 1.05 mg/dl (0.61-1.24); Estimated GFR > 60 mL/min (>60); GLUCOSE 132 mg/dl (70-220); POTASSIUM 3.7 mmol/L (3.5-5.1); SODIUM 137 mmol/L (135-144)
[2018-07-16] MEDS ORDERED: THROMBIN (BOVINE) 5,000 UNIT VIAL TP (08:36)
[2018-07-16] MEDS ORDERED: HEPARIN 1000 UNITS/ML 10 ML INJ ×2 (08:36→14:02)
[2018-07-16] MEDS ORDERED: GELATIN SIZE 100 SPONGE (08:36)
[2018-07-16] MEDS ORDERED: LIDOCAINE 1% (MPF) 30 ML INJ (08:37)
[2018-07-16] MEDS: FLUOXETINE 20 MG CAP PO (08:46)
[2018-07-16] MEDS: RIFAMPIN 300 MG CAP PO (08:46)
[2018-07-16] MEDS: FUROSEMIDE 40 MG TAB PO (08:46)
[2018-07-16] MEDS: AMLODIPINE 10 MG TAB PO (08:46)
[2018-07-16] MEDS: POTASSIUM CHLORIDE (SR) 8 MEQ CAP PO (08:46)
[2018-07-16] MEDS: ASPIRIN (EC) 81 MG TAB PO (08:46)
[2018-07-16] MEDS: METOPROLOL (XL) 25 MG TAB PO (08:47)
[2018-07-16] MEDS: LISINOPRIL 20 MG TAB PO (08:47)
[2018-07-16] MEDS: L ACIDOPHIL/B LACTIS/B LONGUM CAPSULE PO ×2 (08:47→20:18)
[2018-07-16] MEDS: MUPIROCIN 2% 22 GM OINT TOP ×2 (08:48→20:33)
[2018-07-16] MEDS: NYSTATIN 30 GM POWDER BTL TOP ×2 (08:48→20:18)
[2018-07-16] MEDS: INSULIN ASP PROT/ASPART (70/30) PEN SC ×2 (08:59→18:32)
[2018-07-16] MEDS: INSULIN ASPART [NOVOLOG] 3 ML PEN SC ×4 (08:59→20:22)
[2018-07-16] MEDS: PSYLLIUM (SUGAR FREE) PACKET PO (09:00)
[2018-07-16 09:54] LABS: ERYTHROCYTE SEDIMENTATION RATE 44 mm/Hr (0-20)
[2018-07-16 12:09] LABS: INR 1.03; PROTIME 13.6 Sec (11.9-14.9); PT RATIO 1.1
[2018-07-16 12:10] LABS: PARTIAL THROMBOPLASTIN TIME 36.7 Sec (23.0-35.0)
[2018-07-16] MEDS ORDERED: MIDAZOLAM 1 MG/ML 2 ML INJ ×2 (12:44→12:50)
[2018-07-16] MEDS ORDERED: VANCOMYCIN 1 GM INJ (13:41)
[2018-07-16] MEDS ORDERED: ROCURONIUM 50 MG INJ (13:47)
[2018-07-16] MEDS ORDERED: ONDANSETRON 4 MG INJ (13:47)
[2018-07-16] MEDS ORDERED: FAMOTIDINE 20 MG INJ (13:47)
[2018-07-16] MEDS ORDERED: ETOMIDATE 20 MG INJ (13:47)
[2018-07-16] MEDS ORDERED: SUCCINYLCHOLINE CHLORIDE 100 MG/5 ML SYG IV (13:47)
[2018-07-16] MEDS ORDERED: LIDOCAINE 2% (SDV) 5 ML INJ (13:47)
[2018-07-16] MEDS ORDERED: MEPERIDINE 25 MG INJ IV (14:00)
[2018-07-16] MEDS ORDERED: HYDROmorphONE 0.5 MG/0.5 ML SYG IV ×3 (14:00)
[2018-07-16] MEDS ORDERED: DIPHENHYDRAMINE 50 MG INJ IV (14:00)
[2018-07-16] MEDS ORDERED: hydrALAzine 20 MG INJ IV (14:00)
[2018-07-16] MEDS ORDERED: LABETALOL HCL 20MG INJ IV (14:00)
[2018-07-16] MEDS ORDERED: FENTAnyl 50 MCG/ML VIAL IV (14:00)
[2018-07-16] MEDS: GELATIN SIZE 100 SPONGE TOP (14:15)
[2018-07-16] MEDS: THROMBIN 5000 UNIT VIAL TOP (14:15)
[2018-07-16] MEDS ORDERED: GLYCOPYRROLATE 0.4 MG INJ (15:08)
[2018-07-16] MEDS ORDERED: NEOSTIGMINE 3 MG/3 ML SYRINGE (15:08)
[2018-07-16] MEDS ORDERED: niCARdipine 50 MG in SOD CHLORIDE 0.9% 480 ML IV (15:30)
[2018-07-16] MEDS ORDERED: HEPARIN 25000 UNITS/250 ML 250 ML IV ×2 (15:30→18:30)
[2018-07-16 16:29] LABS: ADD MAN DIFF? NO
[2018-07-16 16:30] LABS: BASOPHIL # 0.1 10^3/ul (0.0-0.1); BASOPHILS % 0.7 % (0.0-2.0); EOSINOPHILS # 0.3 10^3/ul (0.0-0.5); EOSINOPHILS % 3.2 % (0.0-7.0); HEMATOCRIT 33.4 % (42.0-52.0); HEMOGLOBIN 10.2 g/dl (14.0-18.0); LYMPHOCYTES # 1.6 10^3/ul (0.8-2.9); LYMPHOCYTES % 16.7 % (15.0-51.0); MEAN CORPUSCULAR HGB CONC 30.5 g/dl (32.0-37.0); MEAN CORPUSCULAR VOLUME 88.4 fl (82.0-101.0); MONOCYTE # 1.1 10^3/ul (0.3-0.9); MONOCYTES % 11.2 % (0.0-11.0); NEUTROPHIL # 6.5 10^3/ul (1.6-7.5); NEUTROPHILS % 67.7 % (39.0-77.0); PLATELET COUNT 347 10^3/UL (140-415); RED BLOOD COUNT 3.78 10^6/ul (4.70-6.10); RED CELL DISTRIBUTION WIDTH 17.8 % (11.5-14.5)
[2018-07-16 16:30] LABS: WHITE BLOOD COUNT 9.6 10^3/ul (4.8-10.8)
[2018-07-16 16:51] LABS: INR 1.06; PROTIME 13.9 Sec (11.9-14.9); PT RATIO 1.1
[2018-07-16 16:52] LABS: PARTIAL THROMBOPLASTIN TIME 65.5 Sec (23.0-35.0)
[2018-07-16] MEDS: ONDANSETRON 4 MG INJ IV (17:44)
[2018-07-16] MEDS: niCARdipine-NS 0.1MG/ML DRIP 200 ML IV (17:56)
[2018-07-16] MEDS ORDERED: HEPARIN 1000 UNITS/ML 10 ML INJ IV (18:30)
[2018-07-16] MEDS: TAMSULOSIN (SR) 0.4 MG CAP PO (20:18)
[2018-07-16] MEDS: ATORVASTATIN 80 MG TAB PO (20:18)
[2018-07-16] MEDS: HEPARIN 25000 UNITS/250 ML 250 ML IV (20:27)
[2018-07-17] MEDS: PIPER-TAZO 3.375 GM IV (PMX) 100 ML IVPB ×4 (00:13→17:24)
[2018-07-17] MEDS: ACCU-CHEK XX (02:05)
[2018-07-17 03:36] LABS: PARTIAL THROMBOPLASTIN TIME 78.1 Sec (23.0-35.0)
[2018-07-17] MEDS: VANCOMYCIN HCL 1.25 GM in SOD CHLORIDE 0.9% 250 ML IVPB ×2 (04:10→18:29)
[2018-07-17] MEDS: PANTOPRAZOLE (EC) 40 MG TAB PO (06:26)
[2018-07-17] MEDS: ACETAMINOPHEN 325 MG TAB PO ×2 (06:29→10:03)
[2018-07-17] MEDS: INSULIN ASP PROT/ASPART (70/30) PEN SC ×2 (07:50→17:27)
[2018-07-17] MEDS: INSULIN ASPART [NOVOLOG] 3 ML PEN SC ×4 (07:54→21:00)
[2018-07-17] MEDS: RIFAMPIN 300 MG CAP PO (08:20)
[2018-07-17] MEDS: PSYLLIUM (SUGAR FREE) PACKET PO (08:20)
[2018-07-17] MEDS: LISINOPRIL 20 MG TAB PO (08:21)
[2018-07-17] MEDS: ASPIRIN (EC) 81 MG TAB PO (08:21)
[2018-07-17] MEDS: FLUOXETINE 20 MG CAP PO (08:21)
[2018-07-17] MEDS: L ACIDOPHIL/B LACTIS/B LONGUM CAPSULE PO ×2 (08:21→22:08)
[2018-07-17] MEDS: FUROSEMIDE 40 MG TAB PO (08:22)
[2018-07-17] MEDS: METOPROLOL (XL) 25 MG TAB PO (08:22)
[2018-07-17] MEDS: AMLODIPINE 10 MG TAB PO (08:22)
[2018-07-17] MEDS: NYSTATIN 30 GM POWDER BTL TOP (08:23)
[2018-07-17] MEDS: MUPIROCIN 2% 22 GM OINT TOP (08:23)
[2018-07-17] MEDS: APIXABAN 5 MG TABLET PO ×2 (08:28→22:07)
[2018-07-17] MEDS: POTASSIUM CHLORIDE (SR) 8 MEQ CAP PO (10:34)
[2018-07-17 11:58] LABS: ADD MAN DIFF? NO
[2018-07-17 12:01] LABS: WHITE BLOOD COUNT 13.2 10^3/ul (4.8-10.8)
[2018-07-17 12:01] LABS: ABNORMAL IP MESSAGE 1; BASOPHIL # 0.1 10^3/ul (0.0-0.1); BASOPHILS % 0.5 % (0.0-2.0); EOSINOPHILS # 0.1 10^3/ul (0.0-0.5); EOSINOPHILS % 0.8 % (0.0-7.0); HEMATOCRIT 31.2 % (42.0-52.0); HEMOGLOBIN 9.5 g/dl (14.0-18.0); LYMPHOCYTES % 7.9 % (15.0-51.0); MEAN CORPUSCULAR HEMOGLOBIN 26.8 pg (29.0-33.0); MEAN CORPUSCULAR HGB CONC 30.4 g/dl (32.0-37.0); MEAN CORPUSCULAR VOLUME 88.1 fl (82.0-101.0); MEAN PLATELET VOLUME 10.4 fl (7.4-10.4); MONOCYTES % 15.4 % (0.0-11.0); NEUTROPHIL # 9.9 10^3/ul (1.6-7.5); NEUTROPHILS % 74.8 % (39.0-77.0); PLATELET COUNT 311 10^3/UL (140-415); POSITIVE DIFF @See below; RED BLOOD COUNT 3.54 10^6/ul (4.70-6.10); RED CELL DISTRIBUTION WIDTH 17.9 % (11.5-14.5)
[2018-07-17 12:42] LABS: ALANINE AMINOTRANSFERASE 24 IU/L (13-69); ALBUMIN 2.9 g/dl (3.3-4.9); ALBUMIN/GLOBULIN RATIO 0.96; ALKALINE PHOSPHATASE 70 IU/L (42-121); ANION GAP 7 (5-13); ASPARTATE AMINO TRANSFERASE 22 IU/L (15-46); BILIRUBIN,INDIRECT 0.3 mg/dl (0-1.1); BILIRUBIN,TOTAL 0.3 mg/dl (0.2-1.3); BLOOD UREA NITROGEN 12 mg/dl (7-20); CALCIUM 8.3 mg/dl (8.4-10.2); CARBON DIOXIDE 31 mmol/L (21-31); CHLORIDE 94 mmol/L (97-110); CREATININE 1.23 mg/dl (0.61-1.24); Estimated GFR 58 mL/min (>60); GLUCOSE 164 mg/dl (70-220); MAGNESIUM 1.7 mg/dl (1.7-2.5); PHOSPHORUS 3.4 mg/dl (2.5-4.9); POTASSIUM 3.6 mmol/L (3.5-5.1); SODIUM 132 mmol/L (135-144); TOTAL PROTEIN 5.9 g/dl (6.1-8.1)
[2018-07-17] MEDS: HYDROCODONE/APAP (5/325) TAB GTB ×2 (13:27→22:20)
[2018-07-17] MEDS: TAMSULOSIN (SR) 0.4 MG CAP PO (22:08)
[2018-07-17] MEDS: ATORVASTATIN 80 MG TAB PO (22:08)
[2018-07-18] MEDS: PIPER-TAZO 3.375 GM IV (PMX) 100 ML IVPB ×4 (00:46→18:43)
[2018-07-18] MEDS: MUPIROCIN 2% 22 GM OINT TOP ×3 (00:46→21:01)
[2018-07-18] MEDS: NYSTATIN 30 GM POWDER BTL TOP ×3 (00:46→21:01)
[2018-07-18] MEDS: ACCU-CHEK XX (01:39)
[2018-07-18] MEDS: ACETAMINOPHEN 325 MG TAB PO (03:21)
[2018-07-18 03:34] LABS: ADD MAN DIFF? NO
[2018-07-18 03:35] LABS: ABNORMAL IP MESSAGE 1; BASOPHIL # 0.1 10^3/ul (0.0-0.1); BASOPHILS % 0.5 % (0.0-2.0); EOSINOPHILS # 0.1 10^3/ul (0.0-0.5); EOSINOPHILS % 0.8 % (0.0-7.0); HEMATOCRIT 30.2 % (42.0-52.0); HEMOGLOBIN 9.6 g/dl (14.0-18.0); LYMPHOCYTES # 1.3 10^3/ul (0.8-2.9); LYMPHOCYTES % 9.9 % (15.0-51.0); MEAN CORPUSCULAR HEMOGLOBIN 27.4 pg (29.0-33.0); MEAN CORPUSCULAR HGB CONC 31.8 g/dl (32.0-37.0); MEAN CORPUSCULAR VOLUME 86.3 fl (82.0-101.0); MEAN PLATELET VOLUME 10.3 fl (7.4-10.4); MONOCYTE # 2.3 10^3/ul (0.3-0.9); MONOCYTES % 17.1 % (0.0-11.0); NEUTROPHIL # 9.4 10^3/ul (1.6-7.5); NEUTROPHILS % 71.2 % (39.0-77.0); PLATELET COUNT 269 10^3/UL (140-415); POSITIVE DIFF @See below; RED CELL DISTRIBUTION WIDTH 18.1 % (11.5-14.5)
[2018-07-18 03:35] LABS: WHITE BLOOD COUNT 13.3 10^3/ul (4.8-10.8)
[2018-07-18 03:53] LABS: ANION GAP 6 (5-13); BLOOD UREA NITROGEN 11 mg/dl (7-20); CALCIUM 8.4 mg/dl (8.4-10.2); CARBON DIOXIDE 31 mmol/L (21-31); CHLORIDE 97 mmol/L (97-110); CREATININE 1.36 mg/dl (0.61-1.24); Estimated GFR 52 mL/min (>60); GLUCOSE 125 mg/dl (70-220); POTASSIUM 3.4 mmol/L (3.5-5.1); SODIUM 134 mmol/L (135-144)
[2018-07-18 04:06] LABS: VANCOMYCIN,TROUGH 20.2 ug/ml (10.0-20.0)
[2018-07-18] MEDS: PANTOPRAZOLE (EC) 40 MG TAB PO (05:49)
[2018-07-18] MEDS ORDERED: COLLAGENASE 5 GM (UD JAR) TOP (06:00)
[2018-07-18] MEDS: VANCOMYCIN HCL 1.25 GM in SOD CHLORIDE 0.9% 250 ML IVPB (06:44)
[2018-07-18] MEDS: ALTEPLASE (CATHFLO) 2 MG INJ CATHETER (06:55)
[2018-07-18] MEDS: INSULIN ASP PROT/ASPART (70/30) PEN SC ×2 (07:00→17:07)
[2018-07-18] MEDS: INSULIN ASPART [NOVOLOG] 3 ML PEN SC ×4 (08:00→21:01)
[2018-07-18] MEDS: COLLAGENASE 5 GM (UD JAR) TOP (08:19)
[2018-07-18] MEDS: ASPIRIN (EC) 81 MG TAB PO (09:08)
[2018-07-18] MEDS: FLUOXETINE 20 MG CAP PO (09:09)
[2018-07-18] MEDS: AMLODIPINE 10 MG TAB PO (09:09)
[2018-07-18] MEDS: LISINOPRIL 20 MG TAB PO (09:09)
[2018-07-18] MEDS: APIXABAN 5 MG TABLET PO ×2 (09:09→20:47)
[2018-07-18] MEDS: METOPROLOL (XL) 25 MG TAB PO (09:10)
[2018-07-18] MEDS: FUROSEMIDE 40 MG TAB PO (09:10)
[2018-07-18] MEDS: POTASSIUM CHLORIDE (SR) 8 MEQ CAP PO (09:10)
[2018-07-18] MEDS: L ACIDOPHIL/B LACTIS/B LONGUM CAPSULE PO ×2 (09:10→20:47)
[2018-07-18] MEDS: HYDROCODONE/APAP (5/325) TAB GTB ×2 (09:11→12:41)
[2018-07-18] MEDS: PSYLLIUM (SUGAR FREE) PACKET PO (09:11)
[2018-07-18] MEDS: RIFAMPIN 300 MG CAP PO (09:11)
[2018-07-18] MEDS ORDERED: VANCOMYCIN HCL 1.25 GM in SOD CHLORIDE 0.9% 250 ML IVPB (18:30)
[2018-07-18] MEDS: ATORVASTATIN 80 MG TAB PO (20:47)
[2018-07-18] MEDS: TAMSULOSIN (SR) 0.4 MG CAP PO (20:47)
[2018-07-18] MEDS: VANCOMYCIN 1 GM 250 ML IVPB (20:48)
[2018-07-19] MEDS: ACCU-CHEK XX (02:00)
[2018-07-19] MEDS: PIPER-TAZO 3.375 GM IV (PMX) 100 ML IVPB ×4 (02:12→17:43)
[2018-07-19] MEDS: PANTOPRAZOLE (EC) 40 MG TAB PO (05:38)
[2018-07-19 05:49] LABS: ADD MAN DIFF? NO
[2018-07-19 05:54] LABS: WHITE BLOOD COUNT 14.4 10^3/ul (4.8-10.8)
[2018-07-19 05:54] LABS: ABNORMAL IP MESSAGE 1; BASOPHIL # 0.1 10^3/ul (0.0-0.1); BASOPHILS % 0.3 % (0.0-2.0); EOSINOPHILS # 0.1 10^3/ul (0.0-0.5); EOSINOPHILS % 0.8 % (0.0-7.0); HEMATOCRIT 28.9 % (42.0-52.0); HEMOGLOBIN 8.9 g/dl (14.0-18.0); LYMPHOCYTES % 6.9 % (15.0-51.0); MEAN CORPUSCULAR HEMOGLOBIN 27.1 pg (29.0-33.0); MEAN CORPUSCULAR HGB CONC 30.8 g/dl (32.0-37.0); MEAN CORPUSCULAR VOLUME 87.8 fl (82.0-101.0); MEAN PLATELET VOLUME 10.7 fl (7.4-10.4); MONOCYTE # 2.2 10^3/ul (0.3-0.9); MONOCYTES % 15.3 % (0.0-11.0); NEUTROPHIL # 10.9 10^3/ul (1.6-7.5); PLATELET COUNT 255 10^3/UL (140-415); POSITIVE DIFF @See below; RED BLOOD COUNT 3.29 10^6/ul (4.70-6.10); RED CELL DISTRIBUTION WIDTH 18.1 % (11.5-14.5)
[2018-07-19 06:25] LABS: ANION GAP 4 (5-13); BLOOD UREA NITROGEN 11 mg/dl (7-20); CALCIUM 8.3 mg/dl (8.4-10.2); CARBON DIOXIDE 33 mmol/L (21-31); CHLORIDE 96 mmol/L (97-110); Estimated GFR 55 mL/min (>60); GLUCOSE 183 mg/dl (70-220); POTASSIUM 3.4 mmol/L (3.5-5.1); SODIUM 133 mmol/L (135-144)
[2018-07-19] MEDS: L ACIDOPHIL/B LACTIS/B LONGUM CAPSULE PO ×2 (08:08→20:22)
[2018-07-19] MEDS: APIXABAN 5 MG TABLET PO ×2 (08:08→20:23)
[2018-07-19] MEDS: PSYLLIUM (SUGAR FREE) PACKET PO (08:08)
[2018-07-19] MEDS: FUROSEMIDE 40 MG TAB PO (08:09)
[2018-07-19] MEDS: RIFAMPIN 300 MG CAP PO (08:09)
[2018-07-19] MEDS: ASPIRIN (EC) 81 MG TAB PO (08:10)
[2018-07-19] MEDS: FLUOXETINE 20 MG CAP PO (08:10)
[2018-07-19] MEDS: LISINOPRIL 20 MG TAB PO (08:10)
[2018-07-19] MEDS: POTASSIUM CHLORIDE (SR) 8 MEQ CAP PO (08:10)
[2018-07-19] MEDS: METOPROLOL (XL) 25 MG TAB PO (08:10)
[2018-07-19] MEDS: VANCOMYCIN 1 GM 250 ML IVPB ×2 (08:11→20:22)
[2018-07-19] MEDS: COLLAGENASE 5 GM (UD JAR) TOP (08:11)
[2018-07-19] MEDS: NYSTATIN 30 GM POWDER BTL TOP ×2 (08:11→20:23)
[2018-07-19] MEDS: MUPIROCIN 2% 22 GM OINT TOP ×2 (08:11→20:23)
[2018-07-19] MEDS: AMLODIPINE 10 MG TAB PO (08:11)
[2018-07-19] MEDS: INSULIN ASP PROT/ASPART (70/30) PEN SC ×2 (08:14→17:32)
[2018-07-19] MEDS: INSULIN ASPART [NOVOLOG] 3 ML PEN SC ×4 (08:22→20:35)
[2018-07-19] MEDS: HYDROCODONE/APAP (5/325) TAB GTB (08:24)
[2018-07-19] MEDS: TAMSULOSIN (SR) 0.4 MG CAP PO (20:23)
[2018-07-19] MEDS: ATORVASTATIN 80 MG TAB PO (20:23)
[2018-07-20] MEDS: PIPER-TAZO 3.375 GM IV (PMX) 100 ML IVPB ×4 (01:04→17:30)
[2018-07-20] MEDS: ACCU-CHEK XX (02:00)
[2018-07-20] MEDS: PANTOPRAZOLE (EC) 40 MG TAB PO (05:47)
[2018-07-20] MEDS: INSULIN ASP PROT/ASPART (70/30) PEN SC ×2 (07:48→17:28)
[2018-07-20] MEDS: INSULIN ASPART [NOVOLOG] 3 ML PEN SC ×4 (07:51→21:23)
[2018-07-20] MEDS: FUROSEMIDE 40 MG TAB PO (08:19)
[2018-07-20] MEDS: L ACIDOPHIL/B LACTIS/B LONGUM CAPSULE PO ×2 (08:19→21:01)
[2018-07-20] MEDS: FLUOXETINE 20 MG CAP PO (08:19)
[2018-07-20] MEDS: POTASSIUM CHLORIDE (SR) 8 MEQ CAP PO (08:20)
[2018-07-20] MEDS: METOPROLOL (XL) 25 MG TAB PO (08:20)
[2018-07-20] MEDS: RIFAMPIN 300 MG CAP PO (08:20)
[2018-07-20] MEDS: LISINOPRIL 20 MG TAB PO (08:21)
[2018-07-20] MEDS: ASPIRIN (EC) 81 MG TAB PO (08:21)
[2018-07-20] MEDS: AMLODIPINE 10 MG TAB PO (08:21)
[2018-07-20] MEDS: NYSTATIN 30 GM POWDER BTL TOP ×2 (08:22→21:01)
[2018-07-20] MEDS: PSYLLIUM (SUGAR FREE) PACKET PO (08:22)
[2018-07-20 08:57] LABS: VANCOMYCIN,TROUGH 18.7 ug/ml (10.0-20.0)
[2018-07-20] MEDS: VANCOMYCIN 1 GM 250 ML IVPB (09:34)
[2018-07-20] MEDS: APIXABAN 5 MG TABLET PO ×2 (09:34→21:01)
[2018-07-20] MEDS: MUPIROCIN 2% 22 GM OINT TOP ×2 (14:41→21:00)
[2018-07-20] MEDS: COLLAGENASE 5 GM (UD JAR) TOP (14:45)
[2018-07-20] MEDS: VANCOMYCIN 750 MG (PMX) 250 ML IVPB (21:00)
[2018-07-20] MEDS: TAMSULOSIN (SR) 0.4 MG CAP PO (21:00)
[2018-07-20] MEDS: ATORVASTATIN 80 MG TAB PO (21:01)
[2018-07-21] MEDS: PIPER-TAZO 3.375 GM IV (PMX) 100 ML IVPB ×4 (00:46→17:26)
[2018-07-21] MEDS: ACCU-CHEK XX (02:42)
[2018-07-21] MEDS: PANTOPRAZOLE (EC) 40 MG TAB PO (05:25)
[2018-07-21 05:48] LABS: ADD MAN DIFF? NO
[2018-07-21 05:56] LABS: WHITE BLOOD COUNT 11.8 10^3/ul (4.8-10.8)
[2018-07-21 05:56] LABS: ABNORMAL IP MESSAGE 1; BASOPHIL # 0.1 10^3/ul (0.0-0.1); BASOPHILS % 0.4 % (0.0-2.0); EOSINOPHILS # 0.3 10^3/ul (0.0-0.5); EOSINOPHILS % 2.3 % (0.0-7.0); HEMATOCRIT 28.1 % (42.0-52.0); HEMOGLOBIN 8.7 g/dl (14.0-18.0); LYMPHOCYTES # 0.9 10^3/ul (0.8-2.9); LYMPHOCYTES % 7.9 % (15.0-51.0); MEAN CORPUSCULAR HEMOGLOBIN 27.1 pg (29.0-33.0); MEAN CORPUSCULAR VOLUME 87.5 fl (82.0-101.0); MEAN PLATELET VOLUME 10.8 fl (7.4-10.4); MONOCYTE # 1.7 10^3/ul (0.3-0.9); NEUTROPHIL # 8.8 10^3/ul (1.6-7.5); NEUTROPHILS % 74.7 % (39.0-77.0); PLATELET COUNT 271 10^3/UL (140-415); POSITIVE DIFF @See below; RED BLOOD COUNT 3.21 10^6/ul (4.70-6.10); RED CELL DISTRIBUTION WIDTH 18.1 % (11.5-14.5)
[2018-07-21 06:16] LABS: ALANINE AMINOTRANSFERASE 20 IU/L (13-69); ALBUMIN 2.7 g/dl (3.3-4.9); ALKALINE PHOSPHATASE 85 IU/L (42-121); ANION GAP 3 (5-13); ASPARTATE AMINO TRANSFERASE 21 IU/L (15-46); BILIRUBIN,INDIRECT 0.2 mg/dl (0-1.1); BILIRUBIN,TOTAL 0.2 mg/dl (0.2-1.3); BLOOD UREA NITROGEN 17 mg/dl (7-20); CALCIUM 8.4 mg/dl (8.4-10.2); CARBON DIOXIDE 33 mmol/L (21-31); CHLORIDE 98 mmol/L (97-110); CREATININE 1.33 mg/dl (0.61-1.24); Estimated GFR 53 mL/min (>60); GLUCOSE 192 mg/dl (70-220); POTASSIUM 4.1 mmol/L (3.5-5.1); SODIUM 134 mmol/L (135-144); TOTAL PROTEIN 5.7 g/dl (6.1-8.1)
[2018-07-21] MEDS: INSULIN ASPART [NOVOLOG] 3 ML PEN SC ×4 (07:51→20:33)
[2018-07-21] MEDS: VANCOMYCIN 750 MG (PMX) 250 ML IVPB ×2 (08:38→20:44)
[2018-07-21] MEDS: POTASSIUM CHLORIDE (SR) 8 MEQ CAP PO (08:39)
[2018-07-21] MEDS: LOPERAMIDE 2 MG CAP PO (08:39)
[2018-07-21] MEDS: FLUOXETINE 20 MG CAP PO (08:39)
[2018-07-21] MEDS: RIFAMPIN 300 MG CAP PO (08:39)
[2018-07-21] MEDS: APIXABAN 5 MG TABLET PO ×2 (08:39→20:15)
[2018-07-21] MEDS: FUROSEMIDE 40 MG TAB PO (08:40)
[2018-07-21] MEDS: ASPIRIN (EC) 81 MG TAB PO (08:41)
[2018-07-21] MEDS: NYSTATIN 30 GM POWDER BTL TOP ×2 (08:41→20:14)
[2018-07-21] MEDS: METOPROLOL (XL) 25 MG TAB PO (08:41)
[2018-07-21] MEDS: LISINOPRIL 20 MG TAB PO (08:41)
[2018-07-21] MEDS: INSULIN ASP PROT/ASPART (70/30) PEN SC ×2 (08:49→17:35)
[2018-07-21] MEDS: L ACIDOPHIL/B LACTIS/B LONGUM CAPSULE PO ×2 (08:52→20:15)
[2018-07-21] MEDS: PSYLLIUM (SUGAR FREE) PACKET PO (08:52)
[2018-07-21] MEDS: COLLAGENASE 5 GM (UD JAR) TOP (09:00)
[2018-07-21] MEDS: MUPIROCIN 2% 22 GM OINT TOP ×2 (09:00→20:15)
[2018-07-21] MEDS: AMLODIPINE 10 MG TAB PO (09:36)
[2018-07-21] MEDS: ATORVASTATIN 80 MG TAB PO (20:15)
[2018-07-21] MEDS: TAMSULOSIN (SR) 0.4 MG CAP PO (20:15)
[2018-07-22] MEDS: PIPER-TAZO 3.375 GM IV (PMX) 100 ML IVPB ×2 (00:12→05:55)
[2018-07-22] MEDS: ACCU-CHEK XX (02:26)
[2018-07-22 05:14] LABS: ADD MAN DIFF? NO
[2018-07-22 05:15] LABS: WHITE BLOOD COUNT 12.4 10^3/ul (4.8-10.8)
[2018-07-22 05:15] LABS: ABNORMAL IP MESSAGE 1; BASOPHIL # 0.1 10^3/ul (0.0-0.1); BASOPHILS % 0.4 % (0.0-2.0); EOSINOPHILS # 0.3 10^3/ul (0.0-0.5); EOSINOPHILS % 2.3 % (0.0-7.0); HEMATOCRIT 29.4 % (42.0-52.0); HEMOGLOBIN 8.9 g/dl (14.0-18.0); LYMPHOCYTES % 8.2 % (15.0-51.0); MEAN CORPUSCULAR HEMOGLOBIN 27.1 pg (29.0-33.0); MEAN CORPUSCULAR HGB CONC 30.3 g/dl (32.0-37.0); MEAN CORPUSCULAR VOLUME 89.6 fl (82.0-101.0); MEAN PLATELET VOLUME 10.8 fl (7.4-10.4); MONOCYTE # 1.7 10^3/ul (0.3-0.9); MONOCYTES % 13.7 % (0.0-11.0); NEUTROPHIL # 9.2 10^3/ul (1.6-7.5); NEUTROPHILS % 74.7 % (39.0-77.0); PLATELET COUNT 295 10^3/UL (140-415); POSITIVE DIFF @See below; RED BLOOD COUNT 3.28 10^6/ul (4.70-6.10); RED CELL DISTRIBUTION WIDTH 18.5 % (11.5-14.5)
[2018-07-22 05:34] LABS: ANION GAP 11 (5-13); BLOOD UREA NITROGEN 20 mg/dl (7-20); CALCIUM 8.7 mg/dl (8.4-10.2); CARBON DIOXIDE 30 mmol/L (21-31); CHLORIDE 95 mmol/L (97-110); CREATININE 1.54 mg/dl (0.61-1.24); Estimated GFR 45 mL/min (>60); GLUCOSE 214 mg/dl (70-220); POTASSIUM 4.4 mmol/L (3.5-5.1); SODIUM 136 mmol/L (135-144)
[2018-07-22] MEDS: PANTOPRAZOLE (EC) 40 MG TAB PO (05:55)
[2018-07-22 07:24] LABS: C-REACTIVE PROTEIN 8.7 mg/dl (0.0-0.9)
[2018-07-22 07:31] LABS: ERYTHROCYTE SEDIMENTATION RATE 82 mm/Hr (0-20)
[2018-07-22] MEDS: INSULIN ASPART [NOVOLOG] 3 ML PEN SC ×4 (08:24→21:11)
[2018-07-22] MEDS: INSULIN ASP PROT/ASPART (70/30) PEN SC ×2 (08:24→17:33)
[2018-07-22 09:08] LABS: VANCOMYCIN,TROUGH 15.9 ug/ml (10.0-20.0)
[2018-07-22] MEDS: ASPIRIN (EC) 81 MG TAB PO (09:27)
[2018-07-22] MEDS: MEROPENEM 1 GM/50ML(PMX) 50 ML IVPB ×2 (09:27→20:54)
[2018-07-22] MEDS: L ACIDOPHIL/B LACTIS/B LONGUM CAPSULE PO ×2 (09:28→20:52)
[2018-07-22] MEDS: LISINOPRIL 20 MG TAB PO (09:28)
[2018-07-22] MEDS: PSYLLIUM (SUGAR FREE) PACKET PO (09:28)
[2018-07-22] MEDS: FUROSEMIDE 40 MG TAB PO (09:29)
[2018-07-22] MEDS: POTASSIUM CHLORIDE (SR) 8 MEQ CAP PO (09:29)
[2018-07-22] MEDS: APIXABAN 5 MG TABLET PO ×2 (09:29→20:52)
[2018-07-22] MEDS: FLUOXETINE 20 MG CAP PO (09:29)
[2018-07-22] MEDS: AMLODIPINE 10 MG TAB PO (09:30)
[2018-07-22] MEDS: METOPROLOL (XL) 25 MG TAB PO (09:30)
[2018-07-22] MEDS: COLLAGENASE 5 GM (UD JAR) TOP (09:31)
[2018-07-22] MEDS: NYSTATIN 30 GM POWDER BTL TOP ×2 (09:31→21:01)
[2018-07-22] MEDS: MUPIROCIN 2% 22 GM OINT TOP ×2 (09:32→21:12)
[2018-07-22] MEDS: VANCOMYCIN 750 MG (PMX) 250 ML IVPB ×2 (09:54→22:26)
[2018-07-22 15:18] LABS: ADD UMIC YES; UR ASCORBIC ACID NEGATIVE (NEGATIVE); UR BILIRUBIN (Dip) NEGATIVE (NEGATIVE); UR BLOOD (Dip) 1+ mg/dL (NEGATIVE); UR CLARITY SLIGHTLY CLOUDY (CLEAR); UR COLOR YELLOW (YELLOW); UR GLUCOSE (Dip) 1+ mg/dL (NEGATIVE); UR KETONES (Dip) NEGATIVE (NEGATIVE); UR LEUKOCYTE ESTERASE (Dip) NEGATIVE Leu/ul (NEGATIVE); UR NITRITE (Dip) NEGATIVE (NEGATIVE); UR RBC 1 /HPF (0-5); UR SPECIFIC GRAVITY (Dip) 1.015 (1.003-1.030); UR TOTAL PROTEIN (Dip) 2+ mg/dl (NEGATIVE); UR UROBILINOGEN (Dip) NEGATIVE (NEGATIVE); UR WBC 1 /HPF (0-5)
[2018-07-22 15:37] LABS: CREATININE,URINE RANDOM 77.87 mg/dl (20-370); PROTEIN/CREAT RATIO 2.35 RATIO
[2018-07-22] MEDS: TAMSULOSIN (SR) 0.4 MG CAP PO (20:52)
[2018-07-22] MEDS: ATORVASTATIN 80 MG TAB PO (20:52)
[2018-07-23] MEDS: ACCU-CHEK XX (01:48)
[2018-07-23] MEDS: PANTOPRAZOLE (EC) 40 MG TAB PO (05:32)
[2018-07-23 06:27] LABS: ADD MAN DIFF? NO
[2018-07-23 06:34] LABS: WHITE BLOOD COUNT 12.4 10^3/ul (4.8-10.8)
[2018-07-23 06:34] LABS: ABNORMAL IP MESSAGE 1; BASOPHIL # 0.1 10^3/ul (0.0-0.1); BASOPHILS % 0.6 % (0.0-2.0); EOSINOPHILS # 0.4 10^3/ul (0.0-0.5); HEMOGLOBIN 9.3 g/dl (14.0-18.0); LYMPHOCYTES # 1.3 10^3/ul (0.8-2.9); LYMPHOCYTES % 10.1 % (15.0-51.0); MEAN CORPUSCULAR HEMOGLOBIN 26.6 pg (29.0-33.0); MEAN CORPUSCULAR VOLUME 88.6 fl (82.0-101.0); MEAN PLATELET VOLUME 10.6 fl (7.4-10.4); MONOCYTE # 1.6 10^3/ul (0.3-0.9); MONOCYTES % 12.5 % (0.0-11.0); NEUTROPHILS % 72.8 % (39.0-77.0); PLATELET COUNT 350 10^3/UL (140-415); POSITIVE DIFF @See below; RED CELL DISTRIBUTION WIDTH 18.3 % (11.5-14.5)
[2018-07-23 07:04] LABS: ANION GAP 6 (5-13); BLOOD UREA NITROGEN 24 mg/dl (7-20); CALCIUM 8.8 mg/dl (8.4-10.2); CARBON DIOXIDE 33 mmol/L (21-31); CHLORIDE 98 mmol/L (97-110); CREATININE 1.44 mg/dl (0.61-1.24); Estimated GFR 49 mL/min (>60); GLUCOSE 164 mg/dl (70-220); POTASSIUM 4.4 mmol/L (3.5-5.1); SODIUM 137 mmol/L (135-144)
[2018-07-23] MEDS ORDERED: ALTEPLASE (CATHFLO) 2 MG INJ CATHETER (08:00)
[2018-07-23] MEDS: INSULIN ASPART [NOVOLOG] 3 ML PEN SC ×2 (08:28→12:05)
[2018-07-23] MEDS: INSULIN ASP PROT/ASPART (70/30) PEN SC (08:28)
[2018-07-23] MEDS: VANCOMYCIN 750 MG (PMX) 250 ML IVPB (09:00)
[2018-07-23] MEDS: COLLAGENASE 5 GM (UD JAR) TOP (09:00)
[2018-07-23] MEDS: ALTEPLASE (CATHFLO) 2 MG INJ CATHETER (09:17)
[2018-07-23] MEDS: APIXABAN 5 MG TABLET PO (09:19)
[2018-07-23] MEDS: ASPIRIN (EC) 81 MG TAB PO (09:19)
[2018-07-23] MEDS: FLUOXETINE 20 MG CAP PO (09:19)
[2018-07-23] MEDS: PSYLLIUM (SUGAR FREE) PACKET PO (09:19)
[2018-07-23] MEDS: POTASSIUM CHLORIDE (SR) 8 MEQ CAP PO (09:19)
[2018-07-23] MEDS: L ACIDOPHIL/B LACTIS/B LONGUM CAPSULE PO (09:19)
[2018-07-23] MEDS: METOPROLOL (XL) 25 MG TAB PO (09:20)
[2018-07-23] MEDS: AMLODIPINE 10 MG TAB PO (09:20)
[2018-07-23] MEDS: FUROSEMIDE 40 MG TAB PO (09:20)
[2018-07-23] MEDS: NYSTATIN 30 GM POWDER BTL TOP (09:21)
[2018-07-23] MEDS: MUPIROCIN 2% 22 GM OINT TOP (09:21)
[2018-07-23] MEDS: MEROPENEM 1 GM/50ML(PMX) 50 ML IVPB (11:47)
== END 2018-07-23 14:35 | disposition other institution (70) | DRG 982 ==
LOC: ICU 07-16 15:45 → TEL 07-17 14:30 → 5EC 09:52 → TEL 14:52 → 6WM 07-17 14:50
PROC: 041L0ZN Bypass Left Femoral Artery to Posterior Tibial Artery, Open Approach (ICD-10-PCS; principal; 2018-07-16 11:30)
PROC: C23GYZZ Positron Emission Tomographic (PET) Imaging of Myocardium using Other Radionuclide (ICD-10-PCS; 2018-07-16 11:30)
PROC: 3E0F7GC Introduction of Other Therapeutic Substance into Respiratory Tract, Via Natural or Artificial Opening (ICD-10-PCS; 2018-07-16 12:35)
DX: E11.621 Type 2 diabetes mellitus with foot ulcer (principal); M86.9 Osteomyelitis, unspecified; I42.9 Cardiomyopathy, unspecified; Z68.42 Body mass index [BMI] 45.0-49.9, adult; I50.42 Chronic combined systolic (congestive) and diastolic (congestive) heart failure; E11.51 Type 2 diabetes mellitus with diabetic peripheral angiopathy without gangrene; I48.91 Unspecified atrial fibrillation; E66.01 Morbid (severe) obesity due to excess calories; G47.30 Sleep apnea, unspecified; I73.9 Peripheral vascular disease, unspecified; J44.9 Chronic obstructive pulmonary disease, unspecified; I25.10 Atherosclerotic heart disease of native coronary artery without angina pectoris; Z95.1 Presence of aortocoronary bypass graft; R19.7 Diarrhea, unspecified; I11.0 Hypertensive heart disease with heart failure; Z79.4 Long term (current) use of insulin; B36.8 Other specified superficial mycoses; N17.9 Acute kidney failure, unspecified; Z79.01 Long term (current) use of anticoagulants
CPT/HCPCS: 11042; 71045; 78452; 80048; 80053; 80202; 81001; 81003; 82570; 82962; 83036; 83735; 83880; 84100; 85025; 85610; 85651; 85730; 86140; 86850; 86900; 86901; 87040; 87070; 87075; 87081; 93017; 93970; 94660

== ENCOUNTER 2018-07-28 15:21 | Inpatient (IN) | payer MEDICARE ==
[2018-07-28] MEDS: NPH, HUMAN INSULIN ISOPHANE 3ML VIAL SC (17:25)
[2018-07-28] MEDS: INSULIN ASPART [NOVOLOG] 3 ML PEN SC (17:25)
[2018-07-28] MEDS ORDERED: ZOLPIDEM 5 MG TAB PO (17:30)
[2018-07-28] MEDS ORDERED: ACETAMINOPHEN 325 MG TAB PO (17:30)
[2018-07-28] MEDS ORDERED: ALPRAZOLAM 0.5 MG TAB PO (17:30)
[2018-07-28] MEDS ORDERED: VANCOMYCIN IV PER PHARMACY XX (17:30)
[2018-07-28] MEDS ORDERED: NACL 0.9% 3 ML SYG IV (17:30)
[2018-07-28] MEDS ORDERED: HYDROCODONE/APAP (5/325) TAB PO (17:30)
[2018-07-28] MEDS ORDERED: ONDANSETRON 4 MG INJ IV (17:30)
[2018-07-28] MEDS: FUROSEMIDE 100 MG INJ IV (18:00)
[2018-07-28 18:25] LABS: ADD MAN DIFF? NO
[2018-07-28 18:26] LABS: WHITE BLOOD COUNT 11.7 10^3/ul (4.8-10.8)
[2018-07-28 18:26] LABS: BASOPHIL # 0.1 10^3/ul (0.0-0.1); BASOPHILS % 0.6 % (0.0-2.0); EOSINOPHILS # 0.5 10^3/ul (0.0-0.5); EOSINOPHILS % 3.8 % (0.0-7.0); HEMATOCRIT 30.6 % (42.0-52.0); HEMOGLOBIN 9.2 g/dl (14.0-18.0); LYMPHOCYTES # 1.5 10^3/ul (0.8-2.9); LYMPHOCYTES % 12.7 % (15.0-51.0); MEAN CORPUSCULAR HEMOGLOBIN 26.4 pg (29.0-33.0); MEAN CORPUSCULAR HGB CONC 30.1 g/dl (32.0-37.0); MEAN CORPUSCULAR VOLUME 87.9 fl (82.0-101.0); MEAN PLATELET VOLUME 10.3 fl (7.4-10.4); MONOCYTE # 1.2 10^3/ul (0.3-0.9); MONOCYTES % 10.3 % (0.0-11.0); NEUTROPHIL # 8.4 10^3/ul (1.6-7.5); NEUTROPHILS % 71.8 % (39.0-77.0); PLATELET COUNT 344 10^3/UL (140-415); RED BLOOD COUNT 3.48 10^6/ul (4.70-6.10); RED CELL DISTRIBUTION WIDTH 18.5 % (11.5-14.5)
[2018-07-28] MEDS ORDERED: GLUCAGON 1 MG INJ IM (18:30)
[2018-07-28] MEDS ORDERED: GLUCOSE GEL 15 GRAM TUBE PO ×2 (18:30)
[2018-07-28] MEDS ORDERED: GLUCOSE GEL 15 GRAM TUBE BUCCAL (18:30)
[2018-07-28] MEDS ORDERED: DEXTROSE 50% 50 ML SYRINGE IV ×2 (18:30)
[2018-07-28 18:52] LABS: ALANINE AMINOTRANSFERASE 19 IU/L (13-69); ALKALINE PHOSPHATASE 107 IU/L (42-121); ANION GAP 6 (5-13); ASPARTATE AMINO TRANSFERASE 26 IU/L (15-46); BILIRUBIN,INDIRECT 0.2 mg/dl (0-1.1); BILIRUBIN,TOTAL 0.2 mg/dl (0.2-1.3); BLOOD UREA NITROGEN 25 mg/dl (7-20); CARBON DIOXIDE 31 mmol/L (21-31); CHLORIDE 101 mmol/L (97-110); CREATININE 1.48 mg/dl (0.61-1.24); Estimated GFR 47 mL/min (>60); GLUCOSE 155 mg/dl (70-220); POTASSIUM 4.6 mmol/L (3.5-5.1); SODIUM 138 mmol/L (135-144); TOTAL PROTEIN 6.3 g/dl (6.1-8.1)
[2018-07-28 18:54] LABS: C-REACTIVE PROTEIN 2.7 mg/dl (0.0-0.9)
[2018-07-28 18:56] LABS: VANCOMYCIN,RANDOM 16.6 ug/ml
[2018-07-28 19:55] LABS: ERYTHROCYTE SEDIMENTATION RATE 57 mm/Hr (0-20)
[2018-07-28] MEDS: MEROPENEM 1 GM/50ML(PMX) 50 ML IVPB (20:22)
[2018-07-28] MEDS: TAMSULOSIN (SR) 0.4 MG CAP PO (20:23)
[2018-07-28] MEDS: ATORVASTATIN 80 MG TAB PO (20:24)
[2018-07-28] MEDS: SACCHAROMYCES BOULARDII 250 MG CAP PO (21:16)
[2018-07-28] MEDS: VANCOMYCIN HCL 2 GM in SOD CHLORIDE 0.9% 500 ML IVPB (21:16)
[2018-07-28] MEDS: POTASSIUM CHLORIDE (SR) 10 MEQ TAB PO (21:16)
[2018-07-29] MEDS: ACCU-CHEK XX (02:00)
[2018-07-29 03:57] LABS: ADD UMIC YES; UR ASCORBIC ACID NEGATIVE (NEGATIVE); UR BILIRUBIN (Dip) NEGATIVE (NEGATIVE); UR BLOOD (Dip) NEGATIVE (NEGATIVE); UR CLARITY CLEAR (CLEAR); UR COLOR YELLOW (YELLOW); UR GLUCOSE (Dip) 1+ mg/dL (NEGATIVE); UR KETONES (Dip) NEGATIVE (NEGATIVE); UR LEUKOCYTE ESTERASE (Dip) NEGATIVE Leu/ul (NEGATIVE); UR NITRITE (Dip) NEGATIVE (NEGATIVE); UR RBC 2 /HPF (0-5); UR SPECIFIC GRAVITY (Dip) 1.011 (1.003-1.030); UR TOTAL PROTEIN (Dip) 2+ mg/dl (NEGATIVE); UR UROBILINOGEN (Dip) NEGATIVE (NEGATIVE); UR WBC 0 /HPF (0-5)
[2018-07-29 04:02] LABS: CREATININE,URINE RANDOM 55.93 mg/dl (20-370); PROTEIN/CREAT RATIO 1.93 RATIO
[2018-07-29] MEDS: PANTOPRAZOLE (EC) 40 MG TAB PO (05:41)
[2018-07-29] MEDS: FUROSEMIDE 100 MG INJ IV ×2 (05:50→17:52)
[2018-07-29 07:01] LABS: ADD MAN DIFF? NO
[2018-07-29 07:07] LABS: BASOPHIL # 0.1 10^3/ul (0.0-0.1); BASOPHILS % 0.7 % (0.0-2.0); EOSINOPHILS # 0.5 10^3/ul (0.0-0.5); EOSINOPHILS % 4.2 % (0.0-7.0); HEMOGLOBIN 9.3 g/dl (14.0-18.0); LYMPHOCYTES # 1.1 10^3/ul (0.8-2.9); MEAN CORPUSCULAR HEMOGLOBIN 26.3 pg (29.0-33.0); MEAN CORPUSCULAR VOLUME 87.8 fl (82.0-101.0); MEAN PLATELET VOLUME 10.4 fl (7.4-10.4); MONOCYTE # 1.1 10^3/ul (0.3-0.9); MONOCYTES % 9.9 % (0.0-11.0); NEUTROPHIL # 7.9 10^3/ul (1.6-7.5); NEUTROPHILS % 74.4 % (39.0-77.0); PLATELET COUNT 326 10^3/UL (140-415); RED BLOOD COUNT 3.53 10^6/ul (4.70-6.10); RED CELL DISTRIBUTION WIDTH 18.3 % (11.5-14.5)
[2018-07-29 07:07] LABS: WHITE BLOOD COUNT 10.6 10^3/ul (4.8-10.8)
[2018-07-29] MEDS: INSULIN ASPART [NOVOLOG] 3 ML PEN SC ×3 (07:25→17:49)
[2018-07-29 07:29] LABS: INR 1.13; PROTIME 14.6 Sec (11.9-14.9); PT RATIO 1.1
[2018-07-29 07:30] LABS: PARTIAL THROMBOPLASTIN TIME 38.2 Sec (23.0-35.0)
[2018-07-29 07:32] LABS: ANION GAP 6 (5-13); BLOOD UREA NITROGEN 25 mg/dl (7-20); CALCIUM 9.2 mg/dl (8.4-10.2); CARBON DIOXIDE 31 mmol/L (21-31); CHLORIDE 101 mmol/L (97-110); CREATININE 1.48 mg/dl (0.61-1.24); Estimated GFR 47 mL/min (>60); GLUCOSE 170 mg/dl (70-220); POTASSIUM 4.8 mmol/L (3.5-5.1); SODIUM 138 mmol/L (135-144)
[2018-07-29] MEDS: NPH, HUMAN INSULIN ISOPHANE 3ML VIAL SC ×2 (08:31→17:49)
[2018-07-29] MEDS: MEROPENEM 1 GM/50ML(PMX) 50 ML IVPB ×2 (08:34→20:28)
[2018-07-29] MEDS: ASPIRIN 81 MG TAB PO (08:35)
[2018-07-29] MEDS: FLUOXETINE 20 MG CAP PO (08:35)
[2018-07-29] MEDS: SACCHAROMYCES BOULARDII 250 MG CAP PO ×2 (08:35→20:28)
[2018-07-29] MEDS: AMLODIPINE 10 MG TAB PO (08:36)
[2018-07-29] MEDS: POTASSIUM CHLORIDE (SR) 10 MEQ TAB PO ×2 (08:36→20:28)
[2018-07-29] MEDS: VANCOMYCIN 1 GM 250 ML IVPB ×2 (10:42→22:01)
[2018-07-29] MEDS: WARFARIN 10 MG TAB PO (10:42)
[2018-07-29] MEDS: ENOXAPARIN 100 MG/ML SYG SC ×2 (11:44→21:11)
[2018-07-29] MEDS: ALTEPLASE (CATHFLO) 2 MG INJ CATHETER (12:43)
[2018-07-29] MEDS: EPOETIN 10000 UNITS/1 ML INJ (ESRD) SC (18:01)
[2018-07-29] MEDS: TAMSULOSIN (SR) 0.4 MG CAP PO (20:28)
[2018-07-29] MEDS: ATORVASTATIN 80 MG TAB PO (20:29)
[2018-07-30] MEDS: ACCU-CHEK XX (02:00)
[2018-07-30] MEDS: PANTOPRAZOLE (EC) 40 MG TAB PO (06:23)
[2018-07-30] MEDS: FUROSEMIDE 100 MG INJ IV ×2 (06:24→18:06)
[2018-07-30 06:49] LABS: ADD MAN DIFF? NO
[2018-07-30 06:53] LABS: WHITE BLOOD COUNT 10.8 10^3/ul (4.8-10.8)
[2018-07-30 06:53] LABS: BASOPHIL # 0.1 10^3/ul (0.0-0.1); BASOPHILS % 0.6 % (0.0-2.0); EOSINOPHILS # 0.6 10^3/ul (0.0-0.5); EOSINOPHILS % 5.3 % (0.0-7.0); HEMATOCRIT 30.4 % (42.0-52.0); HEMOGLOBIN 9.2 g/dl (14.0-18.0); LYMPHOCYTES # 1.3 10^3/ul (0.8-2.9); LYMPHOCYTES % 12.4 % (15.0-51.0); MEAN CORPUSCULAR HEMOGLOBIN 26.7 pg (29.0-33.0); MEAN CORPUSCULAR HGB CONC 30.3 g/dl (32.0-37.0); MEAN CORPUSCULAR VOLUME 88.1 fl (82.0-101.0); MEAN PLATELET VOLUME 10.2 fl (7.4-10.4); MONOCYTES % 8.9 % (0.0-11.0); NEUTROPHIL # 7.8 10^3/ul (1.6-7.5); NEUTROPHILS % 72.2 % (39.0-77.0); PLATELET COUNT 319 10^3/UL (140-415); RED BLOOD COUNT 3.45 10^6/ul (4.70-6.10); RED CELL DISTRIBUTION WIDTH 18.1 % (11.5-14.5)
[2018-07-30 07:14] LABS: INR 1.11; PROTIME 14.4 Sec (11.9-14.9); PT RATIO 1.1
[2018-07-30 07:16] LABS: ANION GAP 8 (5-13); BLOOD UREA NITROGEN 27 mg/dl (7-20); CALCIUM 8.9 mg/dl (8.4-10.2); CARBON DIOXIDE 32 mmol/L (21-31); CHLORIDE 99 mmol/L (97-110); CREATININE 1.46 mg/dl (0.61-1.24); Estimated GFR 48 mL/min (>60); GLUCOSE 127 mg/dl (70-220); PHOSPHORUS 4.2 mg/dl (2.5-4.9); POTASSIUM 4.7 mmol/L (3.5-5.1); SODIUM 139 mmol/L (135-144)
[2018-07-30 07:17] LABS: IRON 38 ug/dl (35-150)
[2018-07-30] MEDS: INSULIN ASPART [NOVOLOG] 3 ML PEN SC ×3 (07:25→17:17)
[2018-07-30 07:26] LABS: % IRON SATURATION 11 % SAT (22-52); TOTAL IRON BINDING CAPACITY 334 ug/dl (241-421)
[2018-07-30] MEDS: POTASSIUM CHLORIDE (SR) 10 MEQ TAB PO ×2 (08:07→20:24)
[2018-07-30] MEDS: AMLODIPINE 10 MG TAB PO (08:07)
[2018-07-30] MEDS: SACCHAROMYCES BOULARDII 250 MG CAP PO ×2 (08:07→20:24)
[2018-07-30] MEDS: MEROPENEM 1 GM/50ML(PMX) 50 ML IVPB ×2 (08:07→20:24)
[2018-07-30] MEDS: ASPIRIN 81 MG TAB PO (08:07)
[2018-07-30] MEDS: FLUOXETINE 20 MG CAP PO (08:07)
[2018-07-30] MEDS: ENOXAPARIN 100 MG/ML SYG SC ×2 (08:15→20:56)
[2018-07-30] MEDS: NPH, HUMAN INSULIN ISOPHANE 3ML VIAL SC ×2 (08:15→17:21)
[2018-07-30 08:16] LABS: FERRITIN 81.7 ng/ml (11.1-264.0)
[2018-07-30 08:46] LABS: FOLATE 6.5 ng/ml (2.8-20.0)
[2018-07-30] MEDS: WARFARIN 7.5 MG TAB PO (10:50)
[2018-07-30 10:52] LABS: VANCOMYCIN,TROUGH 25.1 ug/ml (10.0-20.0)
[2018-07-30 11:28] LABS: OCCULT BLOOD STOOL NEGATIVE (NEGATIVE)
[2018-07-30] MEDS: SOD FERRIC GLUC COMPLX 125 MG in SOD CHLORIDE 0.9% 100 ML IVPB (13:48)
[2018-07-30] MEDS: TAMSULOSIN (SR) 0.4 MG CAP PO (20:24)
[2018-07-30] MEDS: ATORVASTATIN 80 MG TAB PO (20:24)
[2018-07-30] MEDS: VANCOMYCIN 1 GM 250 ML IVPB (21:48)
[2018-07-31] MEDS: ACCU-CHEK XX (02:00)
[2018-07-31] MEDS: FUROSEMIDE 40 MG INJ IV (05:58)
[2018-07-31] MEDS: PANTOPRAZOLE (EC) 40 MG TAB PO (06:00)
[2018-07-31 06:45] LABS: ADD MAN DIFF? NO
[2018-07-31 06:48] LABS: BASOPHIL # 0.1 10^3/ul (0.0-0.1); BASOPHILS % 0.6 % (0.0-2.0); EOSINOPHILS # 0.5 10^3/ul (0.0-0.5); EOSINOPHILS % 5.1 % (0.0-7.0); HEMATOCRIT 30.5 % (42.0-52.0); HEMOGLOBIN 9.1 g/dl (14.0-18.0); LYMPHOCYTES # 1.2 10^3/ul (0.8-2.9); LYMPHOCYTES % 11.2 % (15.0-51.0); MEAN CORPUSCULAR HEMOGLOBIN 26.9 pg (29.0-33.0); MEAN CORPUSCULAR HGB CONC 29.8 g/dl (32.0-37.0); MEAN CORPUSCULAR VOLUME 90.2 fl (82.0-101.0); MEAN PLATELET VOLUME 10.4 fl (7.4-10.4); MONOCYTES % 9.5 % (0.0-11.0); NEUTROPHIL # 7.5 10^3/ul (1.6-7.5); PLATELET COUNT 307 10^3/UL (140-415); RED BLOOD COUNT 3.38 10^6/ul (4.70-6.10); RED CELL DISTRIBUTION WIDTH 18.1 % (11.5-14.5)
[2018-07-31 06:48] LABS: WHITE BLOOD COUNT 10.2 10^3/ul (4.8-10.8)
[2018-07-31 07:09] LABS: INR 1.16; PROTIME 14.9 Sec (11.9-14.9); PT RATIO 1.2
[2018-07-31 07:11] LABS: ANION GAP 8 (5-13); BLOOD UREA NITROGEN 26 mg/dl (7-20); CARBON DIOXIDE 31 mmol/L (21-31); CHLORIDE 99 mmol/L (97-110); CREATININE 1.51 mg/dl (0.61-1.24); Estimated GFR 46 mL/min (>60); GLUCOSE 131 mg/dl (70-220); POTASSIUM 4.8 mmol/L (3.5-5.1); SODIUM 138 mmol/L (135-144)
[2018-07-31 07:15] LABS: B-TYPE NATRIURETIC PEPTIDE 3020 PG/ML (0-125)
[2018-07-31] MEDS: NPH, HUMAN INSULIN ISOPHANE 3ML VIAL SC ×2 (08:03→17:31)
[2018-07-31] MEDS: INSULIN ASPART [NOVOLOG] 3 ML PEN SC ×3 (08:03→17:31)
[2018-07-31] MEDS: SACCHAROMYCES BOULARDII 250 MG CAP PO ×2 (09:16→21:23)
[2018-07-31] MEDS: MEROPENEM 1 GM/50ML(PMX) 50 ML IVPB ×2 (09:17→21:23)
[2018-07-31] MEDS: FLUOXETINE 20 MG CAP PO (09:17)
[2018-07-31] MEDS: AMLODIPINE 10 MG TAB PO (09:17)
[2018-07-31] MEDS: ASPIRIN 81 MG TAB PO (09:17)
[2018-07-31] MEDS: ENOXAPARIN 100 MG/ML SYG SC ×2 (09:27→21:45)
[2018-07-31] MEDS: SOD FERRIC GLUC COMPLX 125 MG in SOD CHLORIDE 0.9% 100 ML IVPB (11:44)
[2018-07-31] MEDS: WARFARIN 7.5 MG TAB PO (11:44)
[2018-07-31] MEDS: EPOETIN 10000 UNITS/1 ML INJ (ESRD) SC (17:34)
[2018-07-31 20:09] LABS: OCCULT BLOOD STOOL NEGATIVE (NEGATIVE)
[2018-07-31] MEDS: VANCOMYCIN 1 GM 250 ML IVPB (21:23)
[2018-07-31] MEDS: ATORVASTATIN 80 MG TAB PO (21:24)
[2018-07-31] MEDS: TAMSULOSIN (SR) 0.4 MG CAP PO (21:24)
[2018-08-01] MEDS: ACCU-CHEK XX (01:53)
[2018-08-01] MEDS: PANTOPRAZOLE (EC) 40 MG TAB PO (06:24)
[2018-08-01 06:48] LABS: ADD MAN DIFF? NO
[2018-08-01 06:53] LABS: BASOPHIL # 0.1 10^3/ul (0.0-0.1); BASOPHILS % 0.6 % (0.0-2.0); EOSINOPHILS # 0.5 10^3/ul (0.0-0.5); EOSINOPHILS % 5.6 % (0.0-7.0); HEMATOCRIT 30.8 % (42.0-52.0); HEMOGLOBIN 9.3 g/dl (14.0-18.0); LYMPHOCYTES # 1.2 10^3/ul (0.8-2.9); LYMPHOCYTES % 12.1 % (15.0-51.0); MEAN CORPUSCULAR HEMOGLOBIN 26.9 pg (29.0-33.0); MEAN CORPUSCULAR HGB CONC 30.2 g/dl (32.0-37.0); MEAN PLATELET VOLUME 10.7 fl (7.4-10.4); MONOCYTE # 0.9 10^3/ul (0.3-0.9); MONOCYTES % 9.2 % (0.0-11.0); NEUTROPHILS % 71.8 % (39.0-77.0); PLATELET COUNT 301 10^3/UL (140-415); RED BLOOD COUNT 3.46 10^6/ul (4.70-6.10); RED CELL DISTRIBUTION WIDTH 17.8 % (11.5-14.5)
[2018-08-01 06:53] LABS: WHITE BLOOD COUNT 9.7 10^3/ul (4.8-10.8)
[2018-08-01 07:08] LABS: ANION GAP 7 (5-13); BLOOD UREA NITROGEN 24 mg/dl (7-20); CALCIUM 8.9 mg/dl (8.4-10.2); CARBON DIOXIDE 32 mmol/L (21-31); CHLORIDE 99 mmol/L (97-110); CREATININE 1.38 mg/dl (0.61-1.24); Estimated GFR 51 mL/min (>60); GLUCOSE 129 mg/dl (70-220); PHOSPHORUS 3.9 mg/dl (2.5-4.9); POTASSIUM 4.4 mmol/L (3.5-5.1); SODIUM 138 mmol/L (135-144)
[2018-08-01 07:12] LABS: INR 1.13; PROTIME 14.6 Sec (11.9-14.9); PT RATIO 1.1
[2018-08-01] MEDS: INSULIN ASPART [NOVOLOG] 3 ML PEN SC ×3 (07:25→17:48)
[2018-08-01] MEDS: AMLODIPINE 10 MG TAB PO (08:34)
[2018-08-01] MEDS: FLUOXETINE 20 MG CAP PO (08:34)
[2018-08-01] MEDS: SACCHAROMYCES BOULARDII 250 MG CAP PO ×2 (08:36→20:28)
[2018-08-01] MEDS: MEROPENEM 1 GM/50ML(PMX) 50 ML IVPB ×2 (08:41→20:28)
[2018-08-01] MEDS: NPH, HUMAN INSULIN ISOPHANE 3ML VIAL SC ×2 (08:54→17:48)
[2018-08-01] MEDS: ENOXAPARIN 100 MG/ML SYG SC ×2 (08:54→21:07)
[2018-08-01] MEDS: ASPIRIN 81 MG TAB PO (08:56)
[2018-08-01] MEDS: SOD FERRIC GLUC COMPLX 125 MG in SOD CHLORIDE 0.9% 100 ML IVPB (13:06)
[2018-08-01] MEDS: ATORVASTATIN 80 MG TAB PO (20:27)
[2018-08-01] MEDS: TAMSULOSIN (SR) 0.4 MG CAP PO (20:27)
[2018-08-01] MEDS: VANCOMYCIN 1 GM 250 ML IVPB (22:31)
[2018-08-02] MEDS: ACCU-CHEK XX (02:57)
[2018-08-02] MEDS: PANTOPRAZOLE (EC) 40 MG TAB PO (05:47)
[2018-08-02 06:58] LABS: INR 1.16; PROTIME 14.9 Sec (11.9-14.9); PT RATIO 1.2
[2018-08-02] MEDS: ASPIRIN 81 MG TAB PO (08:17)
[2018-08-02] MEDS: FLUOXETINE 20 MG CAP PO (08:17)
[2018-08-02] MEDS: SACCHAROMYCES BOULARDII 250 MG CAP PO ×2 (08:17→20:20)
[2018-08-02] MEDS: MEROPENEM 1 GM/50ML(PMX) 50 ML IVPB ×2 (08:17→20:20)
[2018-08-02] MEDS: AMLODIPINE 10 MG TAB PO (08:18)
[2018-08-02] MEDS: INSULIN ASPART [NOVOLOG] 3 ML PEN SC ×3 (08:58→17:09)
[2018-08-02] MEDS: ENOXAPARIN 100 MG/ML SYG SC ×2 (08:58→20:31)
[2018-08-02] MEDS: NPH, HUMAN INSULIN ISOPHANE 3ML VIAL SC ×2 (08:58→17:10)
[2018-08-02] MEDS: SOD FERRIC GLUC COMPLX 125 MG in SOD CHLORIDE 0.9% 100 ML IVPB (12:24)
[2018-08-02] MEDS: WARFARIN 7.5 MG TAB PO (17:03)
[2018-08-02] MEDS: TAMSULOSIN (SR) 0.4 MG CAP PO (20:20)
[2018-08-02] MEDS: ATORVASTATIN 80 MG TAB PO (20:20)
[2018-08-02] MEDS: VANCOMYCIN 1 GM 250 ML IVPB (22:31)
[2018-08-03] MEDS: ACCU-CHEK XX (01:51)
[2018-08-03] MEDS: PANTOPRAZOLE (EC) 40 MG TAB PO (05:00)
[2018-08-03 06:21] LABS: ADD MAN DIFF? NO
[2018-08-03 06:34] LABS: INR 1.18; PROTIME 15.1 Sec (11.9-14.9); PT RATIO 1.2
[2018-08-03 06:41] LABS: BASOPHIL # 0.1 10^3/ul (0.0-0.1); BASOPHILS % 0.7 % (0.0-2.0); EOSINOPHILS # 0.5 10^3/ul (0.0-0.5); EOSINOPHILS % 5.3 % (0.0-7.0); HEMATOCRIT 30.6 % (42.0-52.0); HEMOGLOBIN 9.2 g/dl (14.0-18.0); LYMPHOCYTES # 1.1 10^3/ul (0.8-2.9); LYMPHOCYTES % 12.9 % (15.0-51.0); MEAN CORPUSCULAR HEMOGLOBIN 26.9 pg (29.0-33.0); MEAN CORPUSCULAR HGB CONC 30.1 g/dl (32.0-37.0); MEAN CORPUSCULAR VOLUME 89.5 fl (82.0-101.0); MEAN PLATELET VOLUME 10.6 fl (7.4-10.4); MONOCYTE # 0.9 10^3/ul (0.3-0.9); MONOCYTES % 9.8 % (0.0-11.0); NEUTROPHIL # 6.1 10^3/ul (1.6-7.5); NEUTROPHILS % 70.6 % (39.0-77.0); PLATELET COUNT 273 10^3/UL (140-415); RED BLOOD COUNT 3.42 10^6/ul (4.70-6.10)
[2018-08-03 06:41] LABS: WHITE BLOOD COUNT 8.7 10^3/ul (4.8-10.8)
[2018-08-03] MEDS ORDERED: LIDOCAINE 2% (SDV) 5 ML INJ (07:00)
[2018-08-03] MEDS ORDERED: PROPOFOL 200 MG INJ (07:00)
[2018-08-03 07:01] LABS: ANION GAP 5 (5-13); BLOOD UREA NITROGEN 22 mg/dl (7-20); C-REACTIVE PROTEIN 0.9 mg/dl (0.0-0.9); CALCIUM 8.8 mg/dl (8.4-10.2); CARBON DIOXIDE 31 mmol/L (21-31); CHLORIDE 103 mmol/L (97-110); CREATININE 1.16 mg/dl (0.61-1.24); Estimated GFR > 60 mL/min (>60); GLUCOSE 118 mg/dl (70-220); POTASSIUM 4.6 mmol/L (3.5-5.1); SODIUM 139 mmol/L (135-144)
[2018-08-03] MEDS: INSULIN ASPART [NOVOLOG] 3 ML PEN SC ×4 (07:25→17:30)
[2018-08-03] MEDS: NPH, HUMAN INSULIN ISOPHANE 3ML VIAL SC ×3 (07:52→20:41)
[2018-08-03 08:20] LABS: ERYTHROCYTE SEDIMENTATION RATE 51 mm/Hr (0-20)
[2018-08-03] MEDS: MEROPENEM 1 GM/50ML(PMX) 50 ML IVPB ×2 (09:10→21:41)
[2018-08-03] MEDS: ASPIRIN 81 MG TAB PO (09:11)
[2018-08-03] MEDS: SACCHAROMYCES BOULARDII 250 MG CAP PO ×2 (09:13→22:35)
[2018-08-03] MEDS: FLUOXETINE 20 MG CAP PO (09:14)
[2018-08-03] MEDS: AMLODIPINE 10 MG TAB PO (09:14)
[2018-08-03] MEDS: ENOXAPARIN 100 MG/ML SYG SC (09:24)
[2018-08-03] MEDS: WARFARIN 7.5 MG TAB PO (10:00)
[2018-08-03] MEDS ORDERED: LIDOCAINE 1% (MPF) 30 ML INJ (12:02)
[2018-08-03] MEDS: SOD FERRIC GLUC COMPLX 125 MG in SOD CHLORIDE 0.9% 100 ML IVPB (12:24)
[2018-08-03] MEDS ORDERED: FENTAnyl 50 MCG/ML VIAL (12:31)
[2018-08-03] MEDS ORDERED: PHENYLephrine 10 MG INJ (12:39)
[2018-08-03] MEDS ORDERED: PHENYLephrine (100 MCG/ML) 5ML SYG (12:40)
[2018-08-03] MEDS: HEPARIN 1000 UNITS/ML 10 ML INJ (13:07)
[2018-08-03] MEDS: POLYMYXIN/BACITRACIN 1L IRRIG IRR (13:28)
[2018-08-03] MEDS: THROMBIN (BOVINE) 5,000 UNIT VIAL TP (13:28)
[2018-08-03] MEDS: GELATIN SIZE 100 SPONGE (13:28)
[2018-08-03] MEDS ORDERED: HYDROmorphONE 1 MG/5 ML IV SYRINGE IV ×3 (14:00)
[2018-08-03] MEDS ORDERED: LABETALOL HCL 20MG INJ IV (14:00)
[2018-08-03] MEDS ORDERED: hydrALAzine 20 MG INJ IV (14:00)
[2018-08-03] MEDS ORDERED: EPHEDrine SULFATE 50 MG/5 ML SYG IV (14:00)
[2018-08-03] MEDS ORDERED: DIPHENHYDRAMINE 50 MG INJ IV (14:00)
[2018-08-03] MEDS ORDERED: MEPERIDINE 25 MG INJ IV (14:00)
[2018-08-03] MEDS ORDERED: ALBUTEROL 0.083% (NEB) 2.5 MG/3 ML AMP HHN (14:00)
[2018-08-03 14:27] LABS: HEMATOCRIT 29.4 % (42.0-52.0); HEMOGLOBIN 8.8 g/dl (14.0-18.0)
[2018-08-03] MEDS: ONDANSETRON 4 MG INJ IV (15:34)
[2018-08-03 16:31] LABS: ADD MAN DIFF? NO
[2018-08-03 16:34] LABS: WHITE BLOOD COUNT 8.8 10^3/ul (4.8-10.8)
[2018-08-03 16:34] LABS: BASOPHIL # 0.1 10^3/ul (0.0-0.1); BASOPHILS % 0.7 % (0.0-2.0); EOSINOPHILS # 0.3 10^3/ul (0.0-0.5); EOSINOPHILS % 3.4 % (0.0-7.0); HEMATOCRIT 28.4 % (42.0-52.0); HEMOGLOBIN 8.6 g/dl (14.0-18.0); LYMPHOCYTES # 0.7 10^3/ul (0.8-2.9); MEAN CORPUSCULAR HEMOGLOBIN 27.4 pg (29.0-33.0); MEAN CORPUSCULAR HGB CONC 30.3 g/dl (32.0-37.0); MEAN CORPUSCULAR VOLUME 90.4 fl (82.0-101.0); MEAN PLATELET VOLUME 10.4 fl (7.4-10.4); MONOCYTE # 0.8 10^3/ul (0.3-0.9); MONOCYTES % 9.4 % (0.0-11.0); NEUTROPHIL # 6.9 10^3/ul (1.6-7.5); NEUTROPHILS % 77.8 % (39.0-77.0); PLATELET COUNT 287 10^3/UL (140-415); RED BLOOD COUNT 3.14 10^6/ul (4.70-6.10); RED CELL DISTRIBUTION WIDTH 18.1 % (11.5-14.5)
[2018-08-03] MEDS: SOD CHLORIDE 0.9% 1,000 ML IV ×2 (16:37→23:05)
[2018-08-03 16:51] LABS: ANION GAP 7 (5-13); BILIRUBIN,TOTAL 0.2 mg/dl (0.2-1.3); Estimated GFR > 60 mL/min (>60)
[2018-08-03 16:59] LABS: ALANINE AMINOTRANSFERASE 19 IU/L (13-69); ALBUMIN 2.9 g/dl (3.3-4.9); ALKALINE PHOSPHATASE 107 IU/L (42-121); ASPARTATE AMINO TRANSFERASE 24 IU/L (15-46); BILIRUBIN,INDIRECT 0.2 mg/dl (0-1.1); BLOOD UREA NITROGEN 22 mg/dl (7-20); CALCIUM 8.5 mg/dl (8.4-10.2); CARBON DIOXIDE 28 mmol/L (21-31); CHLORIDE 103 mmol/L (97-110); CREATININE 1.18 mg/dl (0.61-1.24); GLUCOSE 170 mg/dl (70-220); POTASSIUM 4.5 mmol/L (3.5-5.1); SODIUM 138 mmol/L (135-144); TOTAL PROTEIN 5.8 g/dl (6.1-8.1)
[2018-08-03] MEDS: EPOETIN 10000 UNITS/1 ML INJ (ESRD) SC ×2 (17:00→20:39)
[2018-08-03] MEDS: metFORMIN 500 MG TAB PO (17:59)
[2018-08-03] MEDS: TAMSULOSIN (SR) 0.4 MG CAP PO (21:41)
[2018-08-03] MEDS: ATORVASTATIN 80 MG TAB PO (21:41)
[2018-08-03 22:03] LABS: VANCOMYCIN,TROUGH 12.1 ug/ml (10.0-20.0)
[2018-08-03] MEDS: VANCOMYCIN 1 GM 250 ML IVPB (22:35)
[2018-08-04] MEDS: ACCU-CHEK XX (02:00)
[2018-08-04 05:22] LABS: ADD MAN DIFF? NO
[2018-08-04 05:30] LABS: BASOPHIL # 0.1 10^3/ul (0.0-0.1); BASOPHILS % 0.6 % (0.0-2.0); EOSINOPHILS # 0.4 10^3/ul (0.0-0.5); EOSINOPHILS % 4.1 % (0.0-7.0); HEMATOCRIT 26.7 % (42.0-52.0); HEMOGLOBIN 8.1 g/dl (14.0-18.0); LYMPHOCYTES # 1.3 10^3/ul (0.8-2.9); LYMPHOCYTES % 13.1 % (15.0-51.0); MEAN CORPUSCULAR HEMOGLOBIN 27.1 pg (29.0-33.0); MEAN CORPUSCULAR HGB CONC 30.3 g/dl (32.0-37.0); MEAN CORPUSCULAR VOLUME 89.3 fl (82.0-101.0); MEAN PLATELET VOLUME 10.7 fl (7.4-10.4); MONOCYTE # 0.9 10^3/ul (0.3-0.9); MONOCYTES % 9.9 % (0.0-11.0); NEUTROPHIL # 6.8 10^3/ul (1.6-7.5); NEUTROPHILS % 71.6 % (39.0-77.0); PLATELET COUNT 291 10^3/UL (140-415); RED BLOOD COUNT 2.99 10^6/ul (4.70-6.10); RED CELL DISTRIBUTION WIDTH 18.2 % (11.5-14.5)
[2018-08-04 05:30] LABS: WHITE BLOOD COUNT 9.5 10^3/ul (4.8-10.8)
[2018-08-04 05:43] LABS: INR 1.34; PROTIME 16.7 Sec (11.9-14.9); PT RATIO 1.3
[2018-08-04 05:57] LABS: ANION GAP 6 (5-13); BLOOD UREA NITROGEN 19 mg/dl (7-20); CALCIUM 8.5 mg/dl (8.4-10.2); CARBON DIOXIDE 30 mmol/L (21-31); CHLORIDE 104 mmol/L (97-110); CREATININE 1.14 mg/dl (0.61-1.24); Estimated GFR > 60 mL/min (>60); GLUCOSE 105 mg/dl (70-220); POTASSIUM 4.2 mmol/L (3.5-5.1); SODIUM 140 mmol/L (135-144)
[2018-08-04] MEDS: PANTOPRAZOLE (EC) 40 MG TAB PO (06:00)
[2018-08-04] MEDS: INSULIN ASPART [NOVOLOG] 3 ML PEN SC ×3 (07:05→17:05)
[2018-08-04] MEDS: MEROPENEM 1 GM/50ML(PMX) 50 ML IVPB ×2 (08:20→20:06)
[2018-08-04] MEDS: metFORMIN 500 MG TAB PO ×2 (08:20→17:47)
[2018-08-04] MEDS: SACCHAROMYCES BOULARDII 250 MG CAP PO ×2 (08:21→20:05)
[2018-08-04] MEDS: ASPIRIN 81 MG TAB PO (08:21)
[2018-08-04] MEDS: AMLODIPINE 10 MG TAB PO (08:22)
[2018-08-04] MEDS: FLUOXETINE 20 MG CAP PO (08:23)
[2018-08-04] MEDS: NPH, HUMAN INSULIN ISOPHANE 3ML VIAL SC ×2 (08:26→17:48)
[2018-08-04] MEDS: WARFARIN 7.5 MG TAB PO (10:36)
[2018-08-04] MEDS: SOD CHLORIDE 0.9% 1,000 ML IV (12:14)
[2018-08-04] MEDS: SOD FERRIC GLUC COMPLX 125 MG in SOD CHLORIDE 0.9% 100 ML IVPB (14:15)
[2018-08-04 15:26] LABS: ADD UMIC YES; UR ASCORBIC ACID NEGATIVE (NEGATIVE); UR BACTERIA FEW /HPF (NONE SEEN); UR BILIRUBIN (Dip) NEGATIVE (NEGATIVE); UR BLOOD (Dip) 1+ mg/dL (NEGATIVE); UR CLARITY SLIGHTLY CLOUDY (CLEAR); UR COLOR YELLOW (YELLOW); UR GLUCOSE (Dip) 1+ mg/dL (NEGATIVE); UR KETONES (Dip) NEGATIVE (NEGATIVE); UR LEUKOCYTE ESTERASE (Dip) NEGATIVE Leu/ul (NEGATIVE); UR MUCUS FEW /HPF (NONE SEEN); UR NITRITE (Dip) NEGATIVE (NEGATIVE); UR RBC 4 /HPF (0-5); UR SPECIFIC GRAVITY (Dip) 1.016 (1.003-1.030); UR TOTAL PROTEIN (Dip) 2+ mg/dl (NEGATIVE); UR UROBILINOGEN (Dip) NEGATIVE (NEGATIVE); UR WBC 1 /HPF (0-5)
[2018-08-04] MEDS: TAMSULOSIN (SR) 0.4 MG CAP PO (20:05)
[2018-08-04] MEDS: ATORVASTATIN 80 MG TAB PO (20:05)
[2018-08-04] MEDS: VANCOMYCIN 1 GM 250 ML IVPB (21:48)
[2018-08-05] MEDS: ACCU-CHEK XX (02:35)
[2018-08-05] MEDS: PANTOPRAZOLE (EC) 40 MG TAB PO (06:04)
[2018-08-05] MEDS: INSULIN ASPART [NOVOLOG] 3 ML PEN SC ×3 (07:25→17:34)
[2018-08-05] MEDS: ASPIRIN 81 MG TAB PO (08:23)
[2018-08-05] MEDS: SACCHAROMYCES BOULARDII 250 MG CAP PO ×2 (08:23→20:44)
[2018-08-05] MEDS: MEROPENEM 1 GM/50ML(PMX) 50 ML IVPB ×2 (08:24→20:45)
[2018-08-05] MEDS: FLUOXETINE 20 MG CAP PO (08:24)
[2018-08-05] MEDS: AMLODIPINE 10 MG TAB PO (08:24)
[2018-08-05 08:25] LABS: ADD MAN DIFF? NO
[2018-08-05 08:28] LABS: BASOPHIL # 0.1 10^3/ul (0.0-0.1); BASOPHILS % 0.7 % (0.0-2.0); EOSINOPHILS # 0.4 10^3/ul (0.0-0.5); EOSINOPHILS % 4.9 % (0.0-7.0); HEMATOCRIT 25.9 % (42.0-52.0); HEMOGLOBIN 7.9 g/dl (14.0-18.0); LYMPHOCYTES % 11.6 % (15.0-51.0); MEAN CORPUSCULAR HEMOGLOBIN 26.9 pg (29.0-33.0); MEAN CORPUSCULAR HGB CONC 30.5 g/dl (32.0-37.0); MEAN CORPUSCULAR VOLUME 88.1 fl (82.0-101.0); MEAN PLATELET VOLUME 10.5 fl (7.4-10.4); MONOCYTE # 0.9 10^3/ul (0.3-0.9); MONOCYTES % 10.3 % (0.0-11.0); NEUTROPHIL # 6.2 10^3/ul (1.6-7.5); NEUTROPHILS % 71.9 % (39.0-77.0); PLATELET COUNT 280 10^3/UL (140-415); RED BLOOD COUNT 2.94 10^6/ul (4.70-6.10); RED CELL DISTRIBUTION WIDTH 18.8 % (11.5-14.5)
[2018-08-05 08:28] LABS: WHITE BLOOD COUNT 8.6 10^3/ul (4.8-10.8)
[2018-08-05] MEDS: NPH, HUMAN INSULIN ISOPHANE 3ML VIAL SC ×2 (08:31→17:37)
[2018-08-05] MEDS: metFORMIN 500 MG TAB PO ×2 (08:32→17:30)
[2018-08-05 08:49] LABS: INR 1.64; PROTIME 19.5 Sec (11.9-14.9); PT RATIO 1.5
[2018-08-05 08:55] LABS: ANION GAP 7 (5-13); BLOOD UREA NITROGEN 16 mg/dl (7-20); CALCIUM 8.5 mg/dl (8.4-10.2); CARBON DIOXIDE 27 mmol/L (21-31); CHLORIDE 106 mmol/L (97-110); CREATININE 1.17 mg/dl (0.61-1.24); Estimated GFR > 60 mL/min (>60); GLUCOSE 117 mg/dl (70-220); POTASSIUM 4.5 mmol/L (3.5-5.1); SODIUM 140 mmol/L (135-144)
[2018-08-05] MEDS: ENOXAPARIN 100 MG/ML SYG SC ×2 (10:20→20:52)
[2018-08-05] MEDS: SOD CHLORIDE 0.9% 1,000 ML IV ×2 (12:31→17:43)
[2018-08-05] MEDS: SOD FERRIC GLUC COMPLX 125 MG in SOD CHLORIDE 0.9% 100 ML IVPB (12:31)
[2018-08-05] MEDS: WARFARIN 7.5 MG TAB PO (17:30)
[2018-08-05] MEDS: EPOETIN 10000 UNITS/1 ML INJ (ESRD) SC (17:32)
[2018-08-05] MEDS: ATORVASTATIN 80 MG TAB PO (20:44)
[2018-08-05] MEDS: TAMSULOSIN (SR) 0.4 MG CAP PO (20:44)
[2018-08-05] MEDS: VANCOMYCIN 1 GM 250 ML IVPB (22:20)
[2018-08-06] MEDS: ACCU-CHEK XX (02:00)
[2018-08-06] MEDS: PANTOPRAZOLE (EC) 40 MG TAB PO (05:59)
[2018-08-06 06:58] LABS: ADD MAN DIFF? NO
[2018-08-06 07:02] LABS: WHITE BLOOD COUNT 8.1 10^3/ul (4.8-10.8)
[2018-08-06 07:02] LABS: BASOPHILS % 0.5 % (0.0-2.0); EOSINOPHILS # 0.4 10^3/ul (0.0-0.5); EOSINOPHILS % 4.9 % (0.0-7.0); HEMOGLOBIN 7.5 g/dl (14.0-18.0); LYMPHOCYTES # 1.1 10^3/ul (0.8-2.9); LYMPHOCYTES % 13.2 % (15.0-51.0); MEAN CORPUSCULAR HEMOGLOBIN 27.6 pg (29.0-33.0); MEAN CORPUSCULAR VOLUME 91.9 fl (82.0-101.0); MEAN PLATELET VOLUME 10.7 fl (7.4-10.4); MONOCYTE # 0.9 10^3/ul (0.3-0.9); MONOCYTES % 11.4 % (0.0-11.0); NEUTROPHIL # 5.6 10^3/ul (1.6-7.5); NEUTROPHILS % 69.4 % (39.0-77.0); PLATELET COUNT 249 10^3/UL (140-415); RED BLOOD COUNT 2.72 10^6/ul (4.70-6.10)
[2018-08-06 07:19] LABS: INR 1.68; PROTIME 19.9 Sec (11.9-14.9); PT RATIO 1.6
[2018-08-06 07:27] LABS: ANION GAP 7 (5-13); BLOOD UREA NITROGEN 15 mg/dl (7-20); CALCIUM 8.4 mg/dl (8.4-10.2); CARBON DIOXIDE 28 mmol/L (21-31); CHLORIDE 105 mmol/L (97-110); CREATININE 1.15 mg/dl (0.61-1.24); Estimated GFR > 60 mL/min (>60); GLUCOSE 133 mg/dl (70-220); MAGNESIUM 1.9 mg/dl (1.7-2.5); PHOSPHORUS 2.8 mg/dl (2.5-4.9); POTASSIUM 4.5 mmol/L (3.5-5.1); SODIUM 140 mmol/L (135-144)
[2018-08-06 07:56] LABS: C-REACTIVE PROTEIN 1.4 mg/dl (0.0-0.9)
[2018-08-06 08:10] LABS: ERYTHROCYTE SEDIMENTATION RATE 45 mm/Hr (0-20)
[2018-08-06] MEDS: metFORMIN 500 MG TAB PO ×2 (08:34→17:07)
[2018-08-06] MEDS: MEROPENEM 1 GM/50ML(PMX) 50 ML IVPB ×2 (08:34→20:22)
[2018-08-06] MEDS: NPH, HUMAN INSULIN ISOPHANE 3ML VIAL SC ×2 (08:34→17:07)
[2018-08-06] MEDS: SACCHAROMYCES BOULARDII 250 MG CAP PO ×2 (08:34→20:22)
[2018-08-06] MEDS: FLUOXETINE 20 MG CAP PO (08:35)
[2018-08-06] MEDS: ASPIRIN 81 MG TAB PO (08:35)
[2018-08-06] MEDS: AMLODIPINE 10 MG TAB PO (08:35)
[2018-08-06] MEDS: ENOXAPARIN 100 MG/ML SYG SC ×2 (08:36→20:29)
[2018-08-06] MEDS: INSULIN ASPART [NOVOLOG] 3 ML PEN SC ×3 (08:37→17:07)
[2018-08-06 08:42] LABS: IRON 49 ug/dl (35-150)
[2018-08-06 08:59] LABS: % IRON SATURATION 15 % SAT (22-52); TOTAL IRON BINDING CAPACITY 321 ug/dl (241-421)
[2018-08-06] MEDS: WARFARIN 7.5 MG TAB PO ×2 (09:30→10:36)
[2018-08-06] MEDS: TAMSULOSIN (SR) 0.4 MG CAP PO (20:22)
[2018-08-06] MEDS: ATORVASTATIN 80 MG TAB PO (20:22)
[2018-08-07] MEDS: VANCOMYCIN 1 GM 250 ML IVPB ×2 (00:32→22:32)
[2018-08-07] MEDS: ACCU-CHEK XX (02:00)
[2018-08-07] MEDS: PANTOPRAZOLE (EC) 40 MG TAB PO (06:25)
[2018-08-07 06:54] LABS: ADD MAN DIFF? NO
[2018-08-07 07:07] LABS: BASOPHIL # 0.1 10^3/ul (0.0-0.1); BASOPHILS % 0.6 % (0.0-2.0); EOSINOPHILS # 0.4 10^3/ul (0.0-0.5); EOSINOPHILS % 4.9 % (0.0-7.0); HEMATOCRIT 25.5 % (42.0-52.0); HEMOGLOBIN 7.6 g/dl (14.0-18.0); LYMPHOCYTES # 1.1 10^3/ul (0.8-2.9); LYMPHOCYTES % 13.4 % (15.0-51.0); MEAN CORPUSCULAR HEMOGLOBIN 26.9 pg (29.0-33.0); MEAN CORPUSCULAR HGB CONC 29.8 g/dl (32.0-37.0); MEAN CORPUSCULAR VOLUME 90.1 fl (82.0-101.0); MEAN PLATELET VOLUME 10.5 fl (7.4-10.4); MONOCYTE # 0.7 10^3/ul (0.3-0.9); MONOCYTES % 8.9 % (0.0-11.0); NEUTROPHILS % 71.6 % (39.0-77.0); PLATELET COUNT 279 10^3/UL (140-415); RED BLOOD COUNT 2.83 10^6/ul (4.70-6.10)
[2018-08-07 07:07] LABS: WHITE BLOOD COUNT 8.3 10^3/ul (4.8-10.8)
[2018-08-07] MEDS: INSULIN ASPART [NOVOLOG] 3 ML PEN SC ×3 (07:25→17:44)
[2018-08-07 07:39] LABS: ANION GAP 7 (5-13); BLOOD UREA NITROGEN 16 mg/dl (7-20); CALCIUM 8.5 mg/dl (8.4-10.2); CARBON DIOXIDE 28 mmol/L (21-31); CHLORIDE 105 mmol/L (97-110); CREATININE 1.21 mg/dl (0.61-1.24); Estimated GFR 59 mL/min (>60); GLUCOSE 107 mg/dl (70-220); POTASSIUM 4.5 mmol/L (3.5-5.1); SODIUM 140 mmol/L (135-144)
[2018-08-07 07:52] LABS: INR 1.99; PROTIME 22.7 Sec (11.9-14.9); PT RATIO 1.8
[2018-08-07] MEDS: MEROPENEM 1 GM/50ML(PMX) 50 ML IVPB ×2 (08:30→21:14)
[2018-08-07] MEDS: SACCHAROMYCES BOULARDII 250 MG CAP PO ×2 (08:31→21:14)
[2018-08-07] MEDS: metFORMIN 500 MG TAB PO ×2 (08:31→18:19)
[2018-08-07] MEDS: ASPIRIN 81 MG TAB PO (08:31)
[2018-08-07] MEDS: AMLODIPINE 10 MG TAB PO (08:31)
[2018-08-07] MEDS: FLUOXETINE 20 MG CAP PO (08:31)
[2018-08-07] MEDS: NPH, HUMAN INSULIN ISOPHANE 3ML VIAL SC ×2 (08:56→17:44)
[2018-08-07] MEDS: WARFARIN 10 MG TAB PO (10:26)
[2018-08-07] MEDS: EPOETIN 10000 UNITS/1 ML INJ (ESRD) SC (17:36)
[2018-08-07] MEDS: ATORVASTATIN 80 MG TAB PO (21:14)
[2018-08-07] MEDS: TAMSULOSIN (SR) 0.4 MG CAP PO (21:14)
[2018-08-08] MEDS: ACCU-CHEK XX (02:00)
[2018-08-08] MEDS: PANTOPRAZOLE (EC) 40 MG TAB PO (06:20)
[2018-08-08] MEDS: INSULIN ASPART [NOVOLOG] 3 ML PEN SC ×3 (07:25→17:24)
[2018-08-08] MEDS: metFORMIN 500 MG TAB PO ×2 (08:12→17:17)
[2018-08-08] MEDS: NPH, HUMAN INSULIN ISOPHANE 3ML VIAL SC ×2 (08:17→17:24)
[2018-08-08] MEDS: ASPIRIN 81 MG TAB PO (08:18)
[2018-08-08] MEDS: SACCHAROMYCES BOULARDII 250 MG CAP PO ×2 (08:18→21:05)
[2018-08-08] MEDS: MEROPENEM 1 GM/50ML(PMX) 50 ML IVPB ×2 (08:18→21:06)
[2018-08-08] MEDS: FLUOXETINE 20 MG CAP PO (08:18)
[2018-08-08] MEDS: AMLODIPINE 10 MG TAB PO (08:19)
[2018-08-08 08:49] LABS: INR 2.02; PROTIME 22.9 Sec (11.9-14.9); PT RATIO 1.8
[2018-08-08] MEDS: LISINOPRIL 10 MG TAB PO (13:39)
[2018-08-08] MEDS: FUROSEMIDE 40 MG TAB PO (13:39)
[2018-08-08] MEDS: TAMSULOSIN (SR) 0.4 MG CAP PO (21:05)
[2018-08-08] MEDS: ATORVASTATIN 80 MG TAB PO (21:06)
[2018-08-08 21:18] LABS: VANCOMYCIN,TROUGH 10.6 ug/ml (10.0-20.0)
[2018-08-09] MEDS: VANCOMYCIN 1 GM 250 ML IVPB (00:19)
[2018-08-09] MEDS: ACCU-CHEK XX (03:00)
[2018-08-09] MEDS: PANTOPRAZOLE (EC) 40 MG TAB PO (06:40)
[2018-08-09] MEDS: INSULIN ASPART [NOVOLOG] 3 ML PEN SC ×3 (07:25→17:22)
[2018-08-09] MEDS: NPH, HUMAN INSULIN ISOPHANE 3ML VIAL SC ×2 (07:47→17:21)
[2018-08-09 08:10] LABS: ADD MAN DIFF? NO
[2018-08-09 08:20] LABS: BASOPHIL # 0.1 10^3/ul (0.0-0.1); BASOPHILS % 0.7 % (0.0-2.0); EOSINOPHILS # 0.4 10^3/ul (0.0-0.5); EOSINOPHILS % 4.5 % (0.0-7.0); HEMATOCRIT 26.2 % (42.0-52.0); HEMOGLOBIN 7.9 g/dl (14.0-18.0); LYMPHOCYTES # 0.9 10^3/ul (0.8-2.9); LYMPHOCYTES % 10.6 % (15.0-51.0); MEAN CORPUSCULAR HEMOGLOBIN 27.5 pg (29.0-33.0); MEAN CORPUSCULAR HGB CONC 30.2 g/dl (32.0-37.0); MEAN CORPUSCULAR VOLUME 91.3 fl (82.0-101.0); MEAN PLATELET VOLUME 10.5 fl (7.4-10.4); MONOCYTE # 0.9 10^3/ul (0.3-0.9); MONOCYTES % 10.3 % (0.0-11.0); NEUTROPHIL # 6.2 10^3/ul (1.6-7.5); NEUTROPHILS % 73.7 % (39.0-77.0); PLATELET COUNT 290 10^3/UL (140-415); RED BLOOD COUNT 2.87 10^6/ul (4.70-6.10); RED CELL DISTRIBUTION WIDTH 19.1 % (11.5-14.5)
[2018-08-09 08:20] LABS: WHITE BLOOD COUNT 8.4 10^3/ul (4.8-10.8)
[2018-08-09] MEDS: metFORMIN 500 MG TAB PO ×2 (08:30→17:16)
[2018-08-09] MEDS: AMLODIPINE 10 MG TAB PO (08:30)
[2018-08-09] MEDS: FLUOXETINE 20 MG CAP PO (08:30)
[2018-08-09] MEDS: MEROPENEM 1 GM/50ML(PMX) 50 ML IVPB ×2 (08:30→20:52)
[2018-08-09] MEDS: SACCHAROMYCES BOULARDII 250 MG CAP PO ×2 (08:30→20:52)
[2018-08-09] MEDS: LISINOPRIL 10 MG TAB PO (08:31)
[2018-08-09] MEDS: ASPIRIN 81 MG TAB PO (08:31)
[2018-08-09] MEDS: FUROSEMIDE 40 MG TAB PO ×2 (08:31→17:17)
[2018-08-09 08:36] LABS: ANION GAP 8 (5-13); BLOOD UREA NITROGEN 18 mg/dl (7-20); CARBON DIOXIDE 28 mmol/L (21-31); CHLORIDE 102 mmol/L (97-110); CREATININE 1.15 mg/dl (0.61-1.24); Estimated GFR > 60 mL/min (>60); GLUCOSE 124 mg/dl (70-220); MAGNESIUM 1.7 mg/dl (1.7-2.5); PHOSPHORUS 3.4 mg/dl (2.5-4.9); POTASSIUM 4.8 mmol/L (3.5-5.1); SODIUM 138 mmol/L (135-144)
[2018-08-09 08:41] LABS: INR 1.91; PT RATIO 1.7
[2018-08-09] MEDS: TAMSULOSIN (SR) 0.4 MG CAP PO (20:52)
[2018-08-09] MEDS: ATORVASTATIN 80 MG TAB PO (20:52)
[2018-08-09] MEDS: VANCOMYCIN HCL 1.25 GM in SOD CHLORIDE 0.9% 250 ML IVPB (23:21)
[2018-08-10] MEDS: ACCU-CHEK XX (02:00)
[2018-08-10] MEDS: FUROSEMIDE 40 MG TAB PO ×2 (06:11→17:22)
[2018-08-10] MEDS: PANTOPRAZOLE (EC) 40 MG TAB PO (06:11)
[2018-08-10] MEDS: INSULIN ASPART [NOVOLOG] 3 ML PEN SC ×3 (07:25→17:05)
[2018-08-10] MEDS: NPH, HUMAN INSULIN ISOPHANE 3ML VIAL SC ×2 (08:08→17:24)
[2018-08-10] MEDS: metFORMIN 500 MG TAB PO ×2 (08:09→17:22)
[2018-08-10] MEDS: SACCHAROMYCES BOULARDII 250 MG CAP PO ×2 (08:09→21:41)
[2018-08-10] MEDS: FLUOXETINE 20 MG CAP PO (08:10)
[2018-08-10] MEDS: LISINOPRIL 10 MG TAB PO (08:10)
[2018-08-10] MEDS: AMLODIPINE 10 MG TAB PO (08:10)
[2018-08-10] MEDS: ASPIRIN 81 MG TAB PO (08:10)
[2018-08-10] MEDS: MEROPENEM 1 GM/50ML(PMX) 50 ML IVPB ×2 (08:10→21:41)
[2018-08-10 09:26] LABS: ADD MAN DIFF? NO
[2018-08-10 09:32] LABS: WHITE BLOOD COUNT 8.8 10^3/ul (4.8-10.8)
[2018-08-10 09:32] LABS: BASOPHIL # 0.1 10^3/ul (0.0-0.1); BASOPHILS % 0.6 % (0.0-2.0); EOSINOPHILS # 0.4 10^3/ul (0.0-0.5); EOSINOPHILS % 4.9 % (0.0-7.0); HEMOGLOBIN 8.2 g/dl (14.0-18.0); LYMPHOCYTES # 0.9 10^3/ul (0.8-2.9); MEAN CORPUSCULAR HEMOGLOBIN 27.6 pg (29.0-33.0); MEAN CORPUSCULAR HGB CONC 30.4 g/dl (32.0-37.0); MEAN CORPUSCULAR VOLUME 90.9 fl (82.0-101.0); MEAN PLATELET VOLUME 10.8 fl (7.4-10.4); MONOCYTE # 0.9 10^3/ul (0.3-0.9); MONOCYTES % 10.6 % (0.0-11.0); NEUTROPHIL # 6.5 10^3/ul (1.6-7.5); NEUTROPHILS % 73.3 % (39.0-77.0); PLATELET COUNT 299 10^3/UL (140-415); RED BLOOD COUNT 2.97 10^6/ul (4.70-6.10); RED CELL DISTRIBUTION WIDTH 18.7 % (11.5-14.5)
[2018-08-10 09:49] LABS: ANION GAP 10 (5-13); BLOOD UREA NITROGEN 22 mg/dl (7-20); CALCIUM 9.4 mg/dl (8.4-10.2); CARBON DIOXIDE 29 mmol/L (21-31); CHLORIDE 100 mmol/L (97-110); CREATININE 1.17 mg/dl (0.61-1.24); Estimated GFR > 60 mL/min (>60); GLUCOSE 118 mg/dl (70-220); POTASSIUM 4.6 mmol/L (3.5-5.1); SODIUM 139 mmol/L (135-144)
[2018-08-10 09:51] LABS: INR 1.52; PROTIME 18.4 Sec (11.9-14.9); PT RATIO 1.4
[2018-08-10] MEDS: WARFARIN 10 MG TAB PO (11:48)
[2018-08-10] MEDS: EPOETIN 10000 UNITS/1 ML INJ (ESRD) SC (17:23)
[2018-08-10] MEDS: ATORVASTATIN 80 MG TAB PO (21:41)
[2018-08-10] MEDS: TAMSULOSIN (SR) 0.4 MG CAP PO (21:41)
[2018-08-10] MEDS: VANCOMYCIN HCL 1.25 GM in SOD CHLORIDE 0.9% 250 ML IVPB (22:33)
[2018-08-11] MEDS: ACCU-CHEK XX (01:18)
[2018-08-11] MEDS: PANTOPRAZOLE (EC) 40 MG TAB PO (05:58)
[2018-08-11] MEDS: FUROSEMIDE 40 MG TAB PO ×2 (05:59→17:01)
[2018-08-11] MEDS: INSULIN ASPART [NOVOLOG] 3 ML PEN SC ×3 (07:25→16:53)
[2018-08-11] MEDS: NPH, HUMAN INSULIN ISOPHANE 3ML VIAL SC ×2 (08:11→17:11)
[2018-08-11 08:20] LABS: ADD MAN DIFF? NO
[2018-08-11 08:29] LABS: WHITE BLOOD COUNT 8.4 10^3/ul (4.8-10.8)
[2018-08-11 08:29] LABS: BASOPHIL # 0.1 10^3/ul (0.0-0.1); BASOPHILS % 0.6 % (0.0-2.0); EOSINOPHILS # 0.4 10^3/ul (0.0-0.5); EOSINOPHILS % 4.9 % (0.0-7.0); HEMATOCRIT 26.9 % (42.0-52.0); LYMPHOCYTES % 11.3 % (15.0-51.0); MEAN CORPUSCULAR HEMOGLOBIN 27.3 pg (29.0-33.0); MEAN CORPUSCULAR HGB CONC 29.7 g/dl (32.0-37.0); MEAN CORPUSCULAR VOLUME 91.8 fl (82.0-101.0); MONOCYTE # 0.9 10^3/ul (0.3-0.9); MONOCYTES % 10.2 % (0.0-11.0); NEUTROPHIL # 6.1 10^3/ul (1.6-7.5); NEUTROPHILS % 72.8 % (39.0-77.0); NUCLEATED RED BLOOD CELLS% 0.2 /100WBC (0.0-0.0); PLATELET COUNT 282 10^3/UL (140-415); RED BLOOD COUNT 2.93 10^6/ul (4.70-6.10)
[2018-08-11 08:46] LABS: INR 1.31; PROTIME 16.4 Sec (11.9-14.9); PT RATIO 1.3
[2018-08-11 08:49] LABS: ANION GAP 10 (5-13); BLOOD UREA NITROGEN 21 mg/dl (7-20); CALCIUM 8.7 mg/dl (8.4-10.2); CARBON DIOXIDE 28 mmol/L (21-31); CHLORIDE 101 mmol/L (97-110); CREATININE 1.12 mg/dl (0.61-1.24); Estimated GFR > 60 mL/min (>60); GLUCOSE 108 mg/dl (70-220); MAGNESIUM 1.5 mg/dl (1.7-2.5); POTASSIUM 4.2 mmol/L (3.5-5.1); SODIUM 139 mmol/L (135-144)
[2018-08-11] MEDS: ASPIRIN 81 MG TAB PO (08:51)
[2018-08-11] MEDS: SACCHAROMYCES BOULARDII 250 MG CAP PO ×2 (08:51→21:20)
[2018-08-11] MEDS: FLUOXETINE 20 MG CAP PO (08:51)
[2018-08-11] MEDS: metFORMIN 500 MG TAB PO ×2 (08:51→17:00)
[2018-08-11] MEDS: AMLODIPINE 10 MG TAB PO (08:52)
[2018-08-11] MEDS: MEROPENEM 1 GM/50ML(PMX) 50 ML IVPB ×2 (08:52→21:20)
[2018-08-11] MEDS: LISINOPRIL 10 MG TAB PO (08:52)
[2018-08-11 08:53] LABS: C-REACTIVE PROTEIN 0.9 mg/dl (0.0-0.9)
[2018-08-11 09:36] LABS: ERYTHROCYTE SEDIMENTATION RATE 40 mm/Hr (0-20)
[2018-08-11] MEDS: MAGNESIUM SULFATE 3 GM in DEXTROSE 5% 100 ML IVPB (11:25)
[2018-08-11] MEDS: ATORVASTATIN 80 MG TAB PO (21:20)
[2018-08-11] MEDS: TAMSULOSIN (SR) 0.4 MG CAP PO (21:20)
[2018-08-11] MEDS: VANCOMYCIN HCL 1.25 GM in SOD CHLORIDE 0.9% 250 ML IVPB (22:12)
[2018-08-12] MEDS: ACCU-CHEK XX (01:42)
[2018-08-12] MEDS: FUROSEMIDE 40 MG TAB PO (06:39)
[2018-08-12] MEDS: PANTOPRAZOLE (EC) 40 MG TAB PO (06:39)
[2018-08-12 07:24] LABS: ADD MAN DIFF? NO
[2018-08-12] MEDS: INSULIN ASPART [NOVOLOG] 3 ML PEN SC ×3 (07:25→17:45)
[2018-08-12 07:28] LABS: BASOPHILS % 0.4 % (0.0-2.0); EOSINOPHILS # 0.5 10^3/ul (0.0-0.5); HEMATOCRIT 26.6 % (42.0-52.0); HEMOGLOBIN 8.2 g/dl (14.0-18.0); LYMPHOCYTES % 11.1 % (15.0-51.0); MEAN CORPUSCULAR HEMOGLOBIN 27.5 pg (29.0-33.0); MEAN CORPUSCULAR HGB CONC 30.8 g/dl (32.0-37.0); MEAN CORPUSCULAR VOLUME 89.3 fl (82.0-101.0); MEAN PLATELET VOLUME 10.5 fl (7.4-10.4); MONOCYTES % 10.8 % (0.0-11.0); NEUTROPHIL # 6.5 10^3/ul (1.6-7.5); NEUTROPHILS % 72.1 % (39.0-77.0); PLATELET COUNT 313 10^3/UL (140-415); RED BLOOD COUNT 2.98 10^6/ul (4.70-6.10); RED CELL DISTRIBUTION WIDTH 18.6 % (11.5-14.5)
[2018-08-12 07:46] LABS: ANION GAP 8 (5-13); BLOOD UREA NITROGEN 27 mg/dl (7-20); CALCIUM 9.1 mg/dl (8.4-10.2); CARBON DIOXIDE 32 mmol/L (21-31); CHLORIDE 96 mmol/L (97-110); CREATININE 1.42 mg/dl (0.61-1.24); Estimated GFR 49 mL/min (>60); GLUCOSE 117 mg/dl (70-220); INR 1.28; MAGNESIUM 1.9 mg/dl (1.7-2.5); PHOSPHORUS 4.3 mg/dl (2.5-4.9); POTASSIUM 4.5 mmol/L (3.5-5.1); PROTIME 16.1 Sec (11.9-14.9); PT RATIO 1.3; SODIUM 136 mmol/L (135-144)
[2018-08-12] MEDS: NPH, HUMAN INSULIN ISOPHANE 3ML VIAL SC ×2 (08:01→17:45)
[2018-08-12] MEDS: SACCHAROMYCES BOULARDII 250 MG CAP PO ×2 (08:26→21:30)
[2018-08-12] MEDS: FLUOXETINE 20 MG CAP PO (08:27)
[2018-08-12] MEDS: AMLODIPINE 10 MG TAB PO (08:27)
[2018-08-12] MEDS: LISINOPRIL 10 MG TAB PO (08:27)
[2018-08-12] MEDS: metFORMIN 500 MG TAB PO ×2 (08:27→17:46)
[2018-08-12] MEDS: ASPIRIN 81 MG TAB PO (08:27)
[2018-08-12] MEDS: MEROPENEM 1 GM/50ML(PMX) 50 ML IVPB ×2 (08:28→21:30)
[2018-08-12] MEDS: WARFARIN 7.5 MG TAB PO (11:28)
[2018-08-12] MEDS: ENOXAPARIN 100 MG/ML SYG SC ×2 (11:43→21:34)
[2018-08-12] MEDS: EPOETIN 10000 UNITS/1 ML INJ (ESRD) SC (17:34)
[2018-08-12] MEDS: ATORVASTATIN 80 MG TAB PO (21:30)
[2018-08-12] MEDS: VANCOMYCIN HCL 1.25 GM in SOD CHLORIDE 0.9% 250 ML IVPB (21:30)
[2018-08-12] MEDS: TAMSULOSIN (SR) 0.4 MG CAP PO (21:30)
[2018-08-13] MEDS: ACCU-CHEK XX (02:45)
[2018-08-13] MEDS: PANTOPRAZOLE (EC) 40 MG TAB PO (05:16)
[2018-08-13 06:34] LABS: ADD MAN DIFF? NO
[2018-08-13 06:47] LABS: WHITE BLOOD COUNT 8.6 10^3/ul (4.8-10.8)
[2018-08-13 06:47] LABS: BASOPHIL # 0.1 10^3/ul (0.0-0.1); BASOPHILS % 0.7 % (0.0-2.0); EOSINOPHILS # 0.5 10^3/ul (0.0-0.5); EOSINOPHILS % 5.8 % (0.0-7.0); HEMATOCRIT 27.2 % (42.0-52.0); HEMOGLOBIN 8.3 g/dl (14.0-18.0); LYMPHOCYTES # 1.3 10^3/ul (0.8-2.9); LYMPHOCYTES % 14.8 % (15.0-51.0); MEAN CORPUSCULAR HEMOGLOBIN 27.7 pg (29.0-33.0); MEAN CORPUSCULAR HGB CONC 30.5 g/dl (32.0-37.0); MEAN CORPUSCULAR VOLUME 90.7 fl (82.0-101.0); MEAN PLATELET VOLUME 10.6 fl (7.4-10.4); MONOCYTE # 0.9 10^3/ul (0.3-0.9); MONOCYTES % 10.6 % (0.0-11.0); NEUTROPHIL # 5.8 10^3/ul (1.6-7.5); NEUTROPHILS % 67.5 % (39.0-77.0); PLATELET COUNT 312 10^3/UL (140-415); RED CELL DISTRIBUTION WIDTH 18.6 % (11.5-14.5)
[2018-08-13 06:54] LABS: ANION GAP 6 (5-13); BLOOD UREA NITROGEN 30 mg/dl (7-20); CALCIUM 8.9 mg/dl (8.4-10.2); CARBON DIOXIDE 33 mmol/L (21-31); CHLORIDE 96 mmol/L (97-110); CREATININE 1.43 mg/dl (0.61-1.24); Estimated GFR 49 mL/min (>60); GLUCOSE 119 mg/dl (70-220); MAGNESIUM 1.8 mg/dl (1.7-2.5); PHOSPHORUS 3.9 mg/dl (2.5-4.9); POTASSIUM 4.1 mmol/L (3.5-5.1); SODIUM 135 mmol/L (135-144)
[2018-08-13 06:59] LABS: INR 1.29; PROTIME 16.2 Sec (11.9-14.9); PT RATIO 1.3
[2018-08-13] MEDS: INSULIN ASPART [NOVOLOG] 3 ML PEN SC ×3 (07:25→17:11)
[2018-08-13] MEDS: AMLODIPINE 10 MG TAB PO (08:10)
[2018-08-13] MEDS: FLUOXETINE 20 MG CAP PO (08:10)
[2018-08-13] MEDS: ASPIRIN 81 MG TAB PO (08:10)
[2018-08-13] MEDS: DOXYCYCLINE 100 MG TAB PO ×2 (08:11→21:15)
[2018-08-13] MEDS: SACCHAROMYCES BOULARDII 250 MG CAP PO ×2 (08:11→22:01)
[2018-08-13] MEDS: metFORMIN 500 MG TAB PO ×2 (08:11→17:11)
[2018-08-13] MEDS: NPH, HUMAN INSULIN ISOPHANE 3ML VIAL SC ×2 (08:24→17:16)
[2018-08-13] MEDS: ENOXAPARIN 100 MG/ML SYG SC ×2 (12:04→21:21)
[2018-08-13] MEDS: WARFARIN 7.5 MG TAB PO (14:17)
[2018-08-13] MEDS: METOPROLOL (XL) 25 MG TAB PO (17:12)
[2018-08-13] MEDS: ATORVASTATIN 80 MG TAB PO (21:15)
[2018-08-13] MEDS: TAMSULOSIN (SR) 0.4 MG CAP PO (21:15)
[2018-08-13] MEDS: WARFARIN 2.5 MG TAB PO (22:01)
[2018-08-14] MEDS: ACCU-CHEK XX (02:00)
[2018-08-14 06:28] LABS: ADD MAN DIFF? NO
[2018-08-14 06:30] LABS: BASOPHIL # 0.1 10^3/ul (0.0-0.1); BASOPHILS % 0.8 % (0.0-2.0); EOSINOPHILS # 0.5 10^3/ul (0.0-0.5); EOSINOPHILS % 5.8 % (0.0-7.0); HEMATOCRIT 28.1 % (42.0-52.0); HEMOGLOBIN 8.6 g/dl (14.0-18.0); LYMPHOCYTES # 1.1 10^3/ul (0.8-2.9); LYMPHOCYTES % 12.2 % (15.0-51.0); MEAN CORPUSCULAR HEMOGLOBIN 27.5 pg (29.0-33.0); MEAN CORPUSCULAR HGB CONC 30.6 g/dl (32.0-37.0); MEAN CORPUSCULAR VOLUME 89.8 fl (82.0-101.0); MEAN PLATELET VOLUME 10.1 fl (7.4-10.4); MONOCYTE # 0.9 10^3/ul (0.3-0.9); MONOCYTES % 10.2 % (0.0-11.0); NEUTROPHIL # 6.3 10^3/ul (1.6-7.5); NEUTROPHILS % 70.4 % (39.0-77.0); PLATELET COUNT 311 10^3/UL (140-415); RED BLOOD COUNT 3.13 10^6/ul (4.70-6.10); RED CELL DISTRIBUTION WIDTH 18.5 % (11.5-14.5)
[2018-08-14 06:50] LABS: INR 1.28; PROTIME 16.1 Sec (11.9-14.9); PT RATIO 1.3
[2018-08-14] MEDS: PANTOPRAZOLE (EC) 40 MG TAB PO (06:53)
[2018-08-14 07:02] LABS: ANION GAP 5 (5-13); BLOOD UREA NITROGEN 29 mg/dl (7-20); CALCIUM 9.2 mg/dl (8.4-10.2); CARBON DIOXIDE 33 mmol/L (21-31); CHLORIDE 99 mmol/L (97-110); CREATININE 1.42 mg/dl (0.61-1.24); Estimated GFR 49 mL/min (>60); GLUCOSE 110 mg/dl (70-220); MAGNESIUM 1.9 mg/dl (1.7-2.5); POTASSIUM 4.7 mmol/L (3.5-5.1); SODIUM 137 mmol/L (135-144)
[2018-08-14] MEDS: INSULIN ASPART [NOVOLOG] 3 ML PEN SC ×3 (07:25→17:44)
[2018-08-14] MEDS: metFORMIN 500 MG TAB PO ×2 (08:15→17:36)
[2018-08-14] MEDS: DOXYCYCLINE 100 MG TAB PO ×2 (08:15→20:24)
[2018-08-14] MEDS: FLUOXETINE 20 MG CAP PO (08:15)
[2018-08-14] MEDS: ASPIRIN 81 MG TAB PO (08:15)
[2018-08-14] MEDS: METOPROLOL (XL) 25 MG TAB PO (08:16)
[2018-08-14] MEDS: AMLODIPINE 10 MG TAB PO (08:16)
[2018-08-14] MEDS: NPH, HUMAN INSULIN ISOPHANE 3ML VIAL SC ×2 (08:25→17:44)
[2018-08-14] MEDS: ENOXAPARIN 100 MG/ML SYG SC ×2 (08:25→20:28)
[2018-08-14] MEDS: SACCHAROMYCES BOULARDII 250 MG CAP PO ×2 (13:16→20:24)
[2018-08-14] MEDS: WARFARIN 10 MG TAB PO (17:36)
[2018-08-14] MEDS: EPOETIN 10000 UNITS/1 ML INJ (ESRD) SC (17:39)
[2018-08-14] MEDS: TAMSULOSIN (SR) 0.4 MG CAP PO (20:24)
[2018-08-14] MEDS: ATORVASTATIN 80 MG TAB PO (20:24)
[2018-08-15] MEDS: ACCU-CHEK XX (02:33)
[2018-08-15] MEDS: PANTOPRAZOLE (EC) 40 MG TAB PO (05:58)
[2018-08-15 06:35] LABS: ADD MAN DIFF? NO
[2018-08-15 06:40] LABS: WHITE BLOOD COUNT 8.6 10^3/ul (4.8-10.8)
[2018-08-15 06:40] LABS: BASOPHIL # 0.1 10^3/ul (0.0-0.1); BASOPHILS % 0.7 % (0.0-2.0); EOSINOPHILS # 0.6 10^3/ul (0.0-0.5); EOSINOPHILS % 6.7 % (0.0-7.0); HEMATOCRIT 28.3 % (42.0-52.0); HEMOGLOBIN 8.6 g/dl (14.0-18.0); LYMPHOCYTES # 1.3 10^3/ul (0.8-2.9); MEAN CORPUSCULAR HEMOGLOBIN 27.5 pg (29.0-33.0); MEAN CORPUSCULAR HGB CONC 30.4 g/dl (32.0-37.0); MEAN CORPUSCULAR VOLUME 90.4 fl (82.0-101.0); MEAN PLATELET VOLUME 10.2 fl (7.4-10.4); MONOCYTE # 0.9 10^3/ul (0.3-0.9); MONOCYTES % 10.4 % (0.0-11.0); NEUTROPHIL # 5.7 10^3/ul (1.6-7.5); NEUTROPHILS % 66.7 % (39.0-77.0); PLATELET COUNT 305 10^3/UL (140-415); RED BLOOD COUNT 3.13 10^6/ul (4.70-6.10); RED CELL DISTRIBUTION WIDTH 18.3 % (11.5-14.5)
[2018-08-15 06:59] LABS: INR 1.62; PROTIME 19.3 Sec (11.9-14.9); PT RATIO 1.5
[2018-08-15 07:21] LABS: ANION GAP 7 (5-13); BLOOD UREA NITROGEN 29 mg/dl (7-20); CARBON DIOXIDE 31 mmol/L (21-31); CHLORIDE 99 mmol/L (97-110); CREATININE 1.51 mg/dl (0.61-1.24); Estimated GFR 46 mL/min (>60); GLUCOSE 125 mg/dl (70-220); POTASSIUM 4.7 mmol/L (3.5-5.1); SODIUM 137 mmol/L (135-144)
[2018-08-15] MEDS: INSULIN ASPART [NOVOLOG] 3 ML PEN SC ×3 (07:25→17:11)
[2018-08-15] MEDS: metFORMIN 500 MG TAB PO ×2 (08:42→17:12)
[2018-08-15] MEDS: NPH, HUMAN INSULIN ISOPHANE 3ML VIAL SC ×2 (08:44→17:16)
[2018-08-15] MEDS: ENOXAPARIN 100 MG/ML SYG SC ×2 (08:44→20:53)
[2018-08-15] MEDS: DOXYCYCLINE 100 MG TAB PO ×2 (08:49→20:46)
[2018-08-15] MEDS: SACCHAROMYCES BOULARDII 250 MG CAP PO ×2 (08:49→20:46)
[2018-08-15] MEDS: ASPIRIN 81 MG TAB PO (08:49)
[2018-08-15] MEDS: FLUOXETINE 20 MG CAP PO (08:49)
[2018-08-15] MEDS: METOPROLOL (XL) 25 MG TAB PO (08:50)
[2018-08-15] MEDS: AMLODIPINE 10 MG TAB PO (08:50)
[2018-08-15] MEDS: WARFARIN 10 MG TAB PO (17:12)
[2018-08-15] MEDS: TAMSULOSIN (SR) 0.4 MG CAP PO (20:46)
[2018-08-15] MEDS: ATORVASTATIN 80 MG TAB PO (20:46)
[2018-08-16] MEDS: ACCU-CHEK XX (02:13)
[2018-08-16] MEDS: PANTOPRAZOLE (EC) 40 MG TAB PO (05:44)
[2018-08-16 06:59] LABS: INR 2.21; PROTIME 24.6 Sec (11.9-14.9); PT RATIO 1.9
[2018-08-16 07:14] LABS: ANION GAP 8 (5-13); BLOOD UREA NITROGEN 28 mg/dl (7-20); CALCIUM 9.1 mg/dl (8.4-10.2); CARBON DIOXIDE 29 mmol/L (21-31); CHLORIDE 101 mmol/L (97-110); CREATININE 1.38 mg/dl (0.61-1.24); Estimated GFR 51 mL/min (>60); GLUCOSE 127 mg/dl (70-220); POTASSIUM 4.7 mmol/L (3.5-5.1); SODIUM 138 mmol/L (135-144)
[2018-08-16] MEDS: INSULIN ASPART [NOVOLOG] 3 ML PEN SC ×2 (07:25→12:23)
[2018-08-16] MEDS: NPH, HUMAN INSULIN ISOPHANE 3ML VIAL SC (08:00)
[2018-08-16] MEDS: metFORMIN 500 MG TAB PO (09:36)
[2018-08-16] MEDS: SACCHAROMYCES BOULARDII 250 MG CAP PO (09:37)
[2018-08-16] MEDS: DOXYCYCLINE 100 MG TAB PO (09:37)
[2018-08-16] MEDS: ASPIRIN 81 MG TAB PO (09:37)
[2018-08-16] MEDS: FLUOXETINE 20 MG CAP PO (09:38)
[2018-08-16] MEDS: AMLODIPINE 10 MG TAB PO (09:38)
[2018-08-16] MEDS: METOPROLOL (XL) 25 MG TAB PO (09:38)
[2018-08-16] MEDS: ENOXAPARIN 100 MG/ML SYG SC (09:44)
== END 2018-08-16 13:44 | disposition home or self-care (01) | DRG 252 ==
LOC: TEL 15:21 → ICU 08-03 15:33 → TEL 08-04 23:21 → 6WM 08-03 17:02 → ICU 08-03 17:56
PROVIDERS: Internal Medicine
PROC: 04PY0JZ Removal of Synthetic Substitute from Lower Artery, Open Approach (ICD-10-PCS; principal; 2018-08-03 12:23)
PROC: 04L Lower Arteries, Occlusion (ICD-10-PCS; 2018-08-03 12:23)
PROC: 06LY0ZZ Occlusion of Lower Vein, Open Approach (ICD-10-PCS; 2018-08-03 12:23)
DX: I13.0 Hypertensive heart and chronic kidney disease with heart failure and stage 1 through stage 4 chronic kidney disease, or unspecified chronic kidney disease (principal); I50.23 Acute on chronic systolic (congestive) heart failure; M86.8X7 Other osteomyelitis, ankle and foot; Z68.42 Body mass index [BMI] 45.0-49.9, adult; N17.9 Acute kidney failure, unspecified; T82.838A Hemorrhage due to vascular prosthetic devices, implants and grafts, initial encounter; T82.7XXA Infection and inflammatory reaction due to other cardiac and vascular devices, implants and grafts, initial encounter; T81.31XA Disruption of external operation (surgical) wound, not elsewhere classified, initial encounter; D62 Acute posthemorrhagic anemia; E11.69 Type 2 diabetes mellitus with other specified complication; E11.51 Type 2 diabetes mellitus with diabetic peripheral angiopathy without gangrene; E66.01 Morbid (severe) obesity due to excess calories; E78.5 Hyperlipidemia, unspecified; E11.621 Type 2 diabetes mellitus with foot ulcer; L97.529 Non-pressure chronic ulcer of other part of left foot with unspecified severity; D50.9 Iron deficiency anemia, unspecified; F32.9 Major depressive disorder, single episode, unspecified; I48.2 Chronic atrial fibrillation; I25.5 Ischemic cardiomyopathy; I25.10 Atherosclerotic heart disease of native coronary artery without angina pectoris; J44.9 Chronic obstructive pulmonary disease, unspecified; N18.2 Chronic kidney disease, stage 2 (mild); Z95.1 Presence of aortocoronary bypass graft; Z89.431 Acquired absence of right foot; Z89.422 Acquired absence of other left toe(s); Z86.73 Personal history of transient ischemic attack (TIA), and cerebral infarction without residual deficits; Z79.01 Long term (current) use of anticoagulants; Z79.4 Long term (current) use of insulin
CPT/HCPCS: 71045; 80048; 80053; 80202; 81001; 81003; 82270; 82570; 82607; 82728; 82746; 82962; 83036; 83540; 83735; 83880; 84100; 84443; 85014; 85018; 85025; 85610; 85651; 85730; 86140; 86850; 86900; 86901; 87070; 87075; 87081; 87086; 87102; 87116; 88300; 93005; 93308; 93970; 94660; 94770; 97110; 97161; 97164; 97530

== ENCOUNTER 2018-08-25 16:12 | Inpatient (IN) | payer MEDICARE ==
[2018-08-25] MEDS ORDERED: ZOLPIDEM 5 MG TAB PO (19:00)
[2018-08-25] MEDS ORDERED: ONDANSETRON 4 MG TAB PO (19:00)
[2018-08-25] MEDS ORDERED: ACETAMINOPHEN 325 MG TAB PO (19:00)
[2018-08-25] MEDS ORDERED: HYDROCODONE/APAP (5/325) TAB PO (19:00)
[2018-08-25] MEDS ORDERED: NACL 0.9% 3 ML SYG IV (19:00)
[2018-08-25 19:40] LABS: ADD MAN DIFF? NO
[2018-08-25 19:48] LABS: BASOPHIL # 0.1 10^3/ul (0.0-0.1); BASOPHILS % 0.4 % (0.0-2.0); EOSINOPHILS # 0.5 10^3/ul (0.0-0.5); HEMOGLOBIN 9.8 g/dl (14.0-18.0); LYMPHOCYTES # 1.1 10^3/ul (0.8-2.9); LYMPHOCYTES % 8.3 % (15.0-51.0); MEAN CORPUSCULAR HEMOGLOBIN 26.9 pg (29.0-33.0); MEAN CORPUSCULAR HGB CONC 30.6 g/dl (32.0-37.0); MEAN CORPUSCULAR VOLUME 87.9 fl (82.0-101.0); MEAN PLATELET VOLUME 10.1 fl (7.4-10.4); MONOCYTE # 1.2 10^3/ul (0.3-0.9); MONOCYTES % 8.7 % (0.0-11.0); NEUTROPHIL # 10.5 10^3/ul (1.6-7.5); NEUTROPHILS % 78.2 % (39.0-77.0); PLATELET COUNT 358 10^3/UL (140-415); RED BLOOD COUNT 3.64 10^6/ul (4.70-6.10); RED CELL DISTRIBUTION WIDTH 17.3 % (11.5-14.5)
[2018-08-25 19:48] LABS: WHITE BLOOD COUNT 13.4 10^3/ul (4.8-10.8)
[2018-08-25 20:04] LABS: ANION GAP 14 (5-13); BLOOD UREA NITROGEN 22 mg/dl (7-20); CARBON DIOXIDE 29 mmol/L (21-31); CHLORIDE 96 mmol/L (97-110); CREATININE 1.33 mg/dl (0.61-1.24); Estimated GFR 53 mL/min (>60); GLUCOSE 160 mg/dl (70-220); POTASSIUM 4.4 mmol/L (3.5-5.1); SODIUM 139 mmol/L (135-144)
[2018-08-25] MEDS ORDERED: GLUCAGON 1 MG INJ IM (21:00)
[2018-08-25] MEDS ORDERED: GLUCOSE GEL 15 GRAM TUBE BUCCAL (21:00)
[2018-08-25] MEDS ORDERED: GLUCOSE GEL 15 GRAM TUBE PO ×2 (21:00)
[2018-08-25] MEDS ORDERED: DEXTROSE 50% 50 ML SYRINGE IV ×2 (21:00)
[2018-08-25 21:56] LABS: INR 3.85; PROTIME 37.8 Sec (11.9-14.9)
[2018-08-25] MEDS: WARFARIN 10 MG TAB PO (23:00)
[2018-08-25] MEDS: ATORVASTATIN 80 MG TAB PO (23:22)
[2018-08-25] MEDS: TAMSULOSIN (SR) 0.4 MG CAP PO (23:22)
[2018-08-25] MEDS ORDERED: PENDING SANTYL ORDER FOR WOUND CARE XX (23:30)
[2018-08-26] MEDS: ACCU-CHEK XX ×2 (02:00→20:34)
[2018-08-26 05:51] LABS: ADD MAN DIFF? NO
[2018-08-26 06:00] LABS: BASOPHILS % 0.4 % (0.0-2.0); EOSINOPHILS # 0.6 10^3/ul (0.0-0.5); EOSINOPHILS % 5.6 % (0.0-7.0); HEMATOCRIT 28.6 % (42.0-52.0); LYMPHOCYTES # 1.3 10^3/ul (0.8-2.9); LYMPHOCYTES % 13.1 % (15.0-51.0); MEAN CORPUSCULAR HEMOGLOBIN 27.5 pg (29.0-33.0); MEAN CORPUSCULAR HGB CONC 31.5 g/dl (32.0-37.0); MEAN CORPUSCULAR VOLUME 87.5 fl (82.0-101.0); MEAN PLATELET VOLUME 9.8 fl (7.4-10.4); MONOCYTES % 9.7 % (0.0-11.0); NEUTROPHIL # 7.1 10^3/ul (1.6-7.5); NEUTROPHILS % 70.9 % (39.0-77.0); PLATELET COUNT 293 10^3/UL (140-415); RED BLOOD COUNT 3.27 10^6/ul (4.70-6.10); RED CELL DISTRIBUTION WIDTH 17.3 % (11.5-14.5)
[2018-08-26 06:17] LABS: INR 3.74; PT RATIO 2.9
[2018-08-26 06:42] LABS: ANION GAP 9 (5-13); BLOOD UREA NITROGEN 22 mg/dl (7-20); CALCIUM 9.1 mg/dl (8.4-10.2); CARBON DIOXIDE 33 mmol/L (21-31); CHLORIDE 98 mmol/L (97-110); CREATININE 1.29 mg/dl (0.61-1.24); Estimated GFR 55 mL/min (>60); GLUCOSE 137 mg/dl (70-220); MAGNESIUM 1.5 mg/dl (1.7-2.5); PHOSPHORUS 3.6 mg/dl (2.5-4.9); POTASSIUM 4.4 mmol/L (3.5-5.1); SODIUM 140 mmol/L (135-144)
[2018-08-26 07:22] LABS: HEMOGLOBIN A1C 6.2 % (0-5.9)
[2018-08-26] MEDS: PANTOPRAZOLE (EC) 40 MG TAB PO (08:34)
[2018-08-26] MEDS: metFORMIN 500 MG TAB PO ×2 (08:34→17:48)
[2018-08-26] MEDS: FUROSEMIDE 40 MG TAB PO (08:35)
[2018-08-26] MEDS: ASPIRIN (EC) 81 MG TAB PO (08:35)
[2018-08-26] MEDS: AMLODIPINE 10 MG TAB PO (08:35)
[2018-08-26] MEDS: DOXYCYCLINE 100 MG TAB PO ×2 (10:55→20:10)
[2018-08-26] MEDS: METOPROLOL (XL) 25 MG TAB PO (10:55)
[2018-08-26] MEDS: LISINOPRIL 5 MG TAB PO (10:55)
[2018-08-26] MEDS: TRIAMCINOLONE ACET 0.1% 15 GM CR TOP (10:56)
[2018-08-26] MEDS: INSULIN ASPART [NOVOLOG] 3 ML PEN SC ×3 (11:01→17:48)
[2018-08-26] MEDS: NPH, HUMAN INSULIN ISOPHANE 3ML VIAL SC ×2 (11:02→17:49)
[2018-08-26] MEDS: MAGNESIUM SULFATE 3 GM in DEXTROSE 5% 100 ML IVPB (12:26)
[2018-08-26] MEDS: FLUOXETINE 20 MG CAP PO (13:29)
[2018-08-26] MEDS: EPOETIN 10000 UNITS/1 ML INJ (ESRD) SC (18:46)
[2018-08-26] MEDS: COLLAGENASE 5 GM (UD JAR) TOP (20:00)
[2018-08-26] MEDS: ATORVASTATIN 80 MG TAB PO (20:10)
[2018-08-26] MEDS: TAMSULOSIN (SR) 0.4 MG CAP PO (20:10)
[2018-08-27] MEDS: INSULIN ASPART [NOVOLOG] 3 ML PEN SC ×3 (08:04→18:24)
[2018-08-27] MEDS: PANTOPRAZOLE (EC) 40 MG TAB PO (08:36)
[2018-08-27] MEDS: DOXYCYCLINE 100 MG TAB PO ×2 (08:36→21:08)
[2018-08-27] MEDS: metFORMIN 500 MG TAB PO ×2 (08:37→18:25)
[2018-08-27] MEDS: METOPROLOL (XL) 25 MG TAB PO (08:37)
[2018-08-27] MEDS: LISINOPRIL 5 MG TAB PO (08:37)
[2018-08-27] MEDS: ASPIRIN (EC) 81 MG TAB PO (08:37)
[2018-08-27] MEDS: FLUOXETINE 20 MG CAP PO (08:37)
[2018-08-27] MEDS: COLLAGENASE 5 GM (UD JAR) TOP (08:38)
[2018-08-27] MEDS: FUROSEMIDE 40 MG TAB PO (08:38)
[2018-08-27] MEDS: AMLODIPINE 10 MG TAB PO (08:38)
[2018-08-27] MEDS: TRIAMCINOLONE ACET 0.1% 15 GM CR TOP (08:39)
[2018-08-27] MEDS: NPH, HUMAN INSULIN ISOPHANE 3ML VIAL SC ×3 (08:43→18:28)
[2018-08-27 11:18] LABS: ADD MAN DIFF? NO
[2018-08-27 11:20] LABS: BASOPHIL # 0.1 10^3/ul (0.0-0.1); BASOPHILS % 0.7 % (0.0-2.0); EOSINOPHILS # 0.5 10^3/ul (0.0-0.5); EOSINOPHILS % 5.2 % (0.0-7.0); HEMATOCRIT 29.2 % (42.0-52.0); HEMOGLOBIN 8.9 g/dl (14.0-18.0); LYMPHOCYTES # 1.1 10^3/ul (0.8-2.9); LYMPHOCYTES % 11.7 % (15.0-51.0); MEAN CORPUSCULAR HEMOGLOBIN 26.6 pg (29.0-33.0); MEAN CORPUSCULAR HGB CONC 30.5 g/dl (32.0-37.0); MEAN CORPUSCULAR VOLUME 87.4 fl (82.0-101.0); MEAN PLATELET VOLUME 9.4 fl (7.4-10.4); MONOCYTE # 0.9 10^3/ul (0.3-0.9); MONOCYTES % 10.4 % (0.0-11.0); NEUTROPHIL # 6.4 10^3/ul (1.6-7.5); NEUTROPHILS % 71.8 % (39.0-77.0); PLATELET COUNT 269 10^3/UL (140-415); RED BLOOD COUNT 3.34 10^6/ul (4.70-6.10); RED CELL DISTRIBUTION WIDTH 17.2 % (11.5-14.5)
[2018-08-27 11:44] LABS: IRON 32 ug/dl (35-150)
[2018-08-27 11:46] LABS: ANION GAP 10 (5-13); BLOOD UREA NITROGEN 20 mg/dl (7-20); CARBON DIOXIDE 30 mmol/L (21-31); CHLORIDE 99 mmol/L (97-110); CREATININE 1.32 mg/dl (0.61-1.24); Estimated GFR 54 mL/min (>60); GLUCOSE 136 mg/dl (70-220); MAGNESIUM 1.8 mg/dl (1.7-2.5); PHOSPHORUS 3.9 mg/dl (2.5-4.9); POTASSIUM 4.5 mmol/L (3.5-5.1); SODIUM 139 mmol/L (135-144)
[2018-08-27 11:56] LABS: % IRON SATURATION 11 % SAT (22-52); TOTAL IRON BINDING CAPACITY 298 ug/dl (241-421)
[2018-08-27 12:32] LABS: FERRITIN 53.8 ng/ml (11.1-264.0)
[2018-08-27 15:53] LABS: INR 2.54; PROTIME 27.4 Sec (11.9-14.9); PT RATIO 2.1
[2018-08-27] MEDS: WARFARIN 7.5 MG TAB PO (21:08)
[2018-08-27] MEDS: ATORVASTATIN 80 MG TAB PO (21:08)
[2018-08-27] MEDS: TAMSULOSIN (SR) 0.4 MG CAP PO (21:08)
[2018-08-28] MEDS: ACCU-CHEK XX (01:23)
[2018-08-28 05:07] LABS: ADD MAN DIFF? NO
[2018-08-28 05:08] LABS: BASOPHILS % 0.5 % (0.0-2.0); EOSINOPHILS # 0.5 10^3/ul (0.0-0.5); EOSINOPHILS % 5.9 % (0.0-7.0); HEMATOCRIT 29.8 % (42.0-52.0); HEMOGLOBIN 9.1 g/dl (14.0-18.0); LYMPHOCYTES # 1.3 10^3/ul (0.8-2.9); MEAN CORPUSCULAR HEMOGLOBIN 26.8 pg (29.0-33.0); MEAN CORPUSCULAR HGB CONC 30.5 g/dl (32.0-37.0); MEAN CORPUSCULAR VOLUME 87.9 fl (82.0-101.0); MEAN PLATELET VOLUME 9.8 fl (7.4-10.4); MONOCYTE # 0.9 10^3/ul (0.3-0.9); MONOCYTES % 10.8 % (0.0-11.0); NEUTROPHIL # 5.6 10^3/ul (1.6-7.5); NEUTROPHILS % 67.4 % (39.0-77.0); PLATELET COUNT 273 10^3/UL (140-415); RED BLOOD COUNT 3.39 10^6/ul (4.70-6.10); RED CELL DISTRIBUTION WIDTH 16.9 % (11.5-14.5)
[2018-08-28 05:08] LABS: WHITE BLOOD COUNT 8.3 10^3/ul (4.8-10.8)
[2018-08-28 05:29] LABS: INR 2.15; PROTIME 24.1 Sec (11.9-14.9); PT RATIO 1.9
[2018-08-28 05:30] LABS: ANION GAP 11 (5-13); BLOOD UREA NITROGEN 22 mg/dl (7-20); CALCIUM 9.1 mg/dl (8.4-10.2); CARBON DIOXIDE 29 mmol/L (21-31); CHLORIDE 101 mmol/L (97-110); CREATININE 1.35 mg/dl (0.61-1.24); Estimated GFR 52 mL/min (>60); GLUCOSE 125 mg/dl (70-220); POTASSIUM 4.5 mmol/L (3.5-5.1); SODIUM 141 mmol/L (135-144)
[2018-08-28] MEDS: COLLAGENASE 5 GM (UD JAR) TOP (08:11)
[2018-08-28] MEDS: LISINOPRIL 5 MG TAB PO (08:12)
[2018-08-28] MEDS: AMLODIPINE 10 MG TAB PO (08:12)
[2018-08-28] MEDS: FUROSEMIDE 40 MG TAB PO (08:12)
[2018-08-28] MEDS: FLUOXETINE 20 MG CAP PO (08:12)
[2018-08-28] MEDS: ASPIRIN (EC) 81 MG TAB PO (08:12)
[2018-08-28] MEDS: metFORMIN 500 MG TAB PO ×2 (08:12→17:46)
[2018-08-28] MEDS: PANTOPRAZOLE (EC) 40 MG TAB PO (08:12)
[2018-08-28] MEDS: TRIAMCINOLONE ACET 0.1% 15 GM CR TOP (08:13)
[2018-08-28] MEDS: METOPROLOL (XL) 25 MG TAB PO (08:13)
[2018-08-28] MEDS: INSULIN ASPART [NOVOLOG] 3 ML PEN SC ×3 (08:14→17:55)
[2018-08-28] MEDS: NPH, HUMAN INSULIN ISOPHANE 3ML VIAL SC ×2 (08:15→17:55)
[2018-08-28] MEDS: SOD FERRIC GLUC COMPLX 125 MG in SOD CHLORIDE 0.9% 100 ML IVPB (13:45)
[2018-08-28] MEDS ORDERED: WARFARIN 7.5 MG TAB PO (17:00)
[2018-08-28] MEDS: WARFARIN 7.5 MG TAB PO (17:47)
[2018-08-28] MEDS: WARFARIN 10 MG TAB PO (17:47)
[2018-08-28] MEDS: EPOETIN 10000 UNITS/1 ML INJ (ESRD) SC (18:18)
[2018-08-28] MEDS: TAMSULOSIN (SR) 0.4 MG CAP PO (20:04)
[2018-08-28] MEDS: ATORVASTATIN 80 MG TAB PO (20:04)
[2018-08-29] MEDS: ACCU-CHEK XX (02:00)
[2018-08-29] MEDS: INSULIN ASPART [NOVOLOG] 3 ML PEN SC ×3 (08:23→17:41)
[2018-08-29] MEDS: PANTOPRAZOLE (EC) 40 MG TAB PO (08:26)
[2018-08-29] MEDS: AMLODIPINE 10 MG TAB PO (08:26)
[2018-08-29] MEDS: metFORMIN 500 MG TAB PO ×2 (08:27→17:45)
[2018-08-29] MEDS: FUROSEMIDE 40 MG TAB PO (08:27)
[2018-08-29] MEDS: LISINOPRIL 5 MG TAB PO (08:28)
[2018-08-29] MEDS: FLUOXETINE 20 MG CAP PO (08:28)
[2018-08-29] MEDS: ASPIRIN (EC) 81 MG TAB PO (08:28)
[2018-08-29] MEDS: METOPROLOL (XL) 25 MG TAB PO (08:29)
[2018-08-29] MEDS: NPH, HUMAN INSULIN ISOPHANE 3ML VIAL SC ×2 (08:32→17:40)
[2018-08-29] MEDS: COLLAGENASE 5 GM (UD JAR) TOP (09:00)
[2018-08-29] MEDS: TRIAMCINOLONE ACET 0.1% 15 GM CR TOP (09:00)
[2018-08-29] MEDS: SOD FERRIC GLUC COMPLX 125 MG in SOD CHLORIDE 0.9% 100 ML IVPB (14:29)
[2018-08-29] MEDS: WARFARIN 7.5 MG TAB PO (17:35)
== END 2018-08-29 16:43 | DRG 638 ==
LOC: E/R 16:12 → 2NE 19:03
DX: E11.69 Type 2 diabetes mellitus with other specified complication (principal); Z68.41 Body mass index [BMI] 40.0-44.9, adult; M86.672 Other chronic osteomyelitis, left ankle and foot; I42.0 Dilated cardiomyopathy; R62.7 Adult failure to thrive; E66.01 Morbid (severe) obesity due to excess calories; I11.0 Hypertensive heart disease with heart failure; I50.9 Heart failure, unspecified; I48.2 Chronic atrial fibrillation; E11.51 Type 2 diabetes mellitus with diabetic peripheral angiopathy without gangrene; J44.9 Chronic obstructive pulmonary disease, unspecified; I25.10 Atherosclerotic heart disease of native coronary artery without angina pectoris; Z95.1 Presence of aortocoronary bypass graft; Z79.4 Long term (current) use of insulin; Z79.01 Long term (current) use of anticoagulants; Z89.431 Acquired absence of right foot; Z89.422 Acquired absence of other left toe(s); Z86.73 Personal history of transient ischemic attack (TIA), and cerebral infarction without residual deficits
CPT/HCPCS: 80048; 82728; 82962; 83036; 83540; 83735; 84100; 84443; 85025; 85610; 85651; 86140; 87081; 94660; 97110; 97116; 97162; 97530; 99285-25

== ENCOUNTER 2018-09-12 12:05 | Inpatient (IN) | payer MEDICARE ==
[2018-09-12 13:35] LABS: ADD MAN DIFF? NO
[2018-09-12 13:39] LABS: WHITE BLOOD COUNT 13.9 10^3/ul (4.8-10.8)
[2018-09-12 13:39] LABS: ABNORMAL IP MESSAGE 1; BASOPHIL # 0.1 10^3/ul (0.0-0.1); BASOPHILS % 0.4 % (0.0-2.0); EOSINOPHILS # 0.3 10^3/ul (0.0-0.5); EOSINOPHILS % 1.9 % (0.0-7.0); HEMATOCRIT 32.9 % (42.0-52.0); HEMOGLOBIN 9.8 g/dl (14.0-18.0); LYMPHOCYTES # 0.8 10^3/ul (0.8-2.9); LYMPHOCYTES % 5.9 % (15.0-51.0); MEAN CORPUSCULAR HEMOGLOBIN 26.8 pg (29.0-33.0); MEAN CORPUSCULAR HGB CONC 29.8 g/dl (32.0-37.0); MEAN CORPUSCULAR VOLUME 89.9 fl (82.0-101.0); MEAN PLATELET VOLUME 10.6 fl (7.4-10.4); MONOCYTE # 1.6 10^3/ul (0.3-0.9); MONOCYTES % 11.4 % (0.0-11.0); NEUTROPHIL # 11.1 10^3/ul (1.6-7.5); NEUTROPHILS % 79.9 % (39.0-77.0); PLATELET COUNT 270 10^3/UL (140-415); POSITIVE DIFF @See below; RED BLOOD COUNT 3.66 10^6/ul (4.70-6.10); RED CELL DISTRIBUTION WIDTH 17.3 % (11.5-14.5)
[2018-09-12 14:04] LABS: ALANINE AMINOTRANSFERASE 15 IU/L (13-69); ALBUMIN 3.8 g/dl (3.3-4.9); ALBUMIN/GLOBULIN RATIO 1.08; ALKALINE PHOSPHATASE 101 IU/L (42-121); ANION GAP 11 (5-13); ASPARTATE AMINO TRANSFERASE 20 IU/L (15-46); BILIRUBIN,INDIRECT 0.4 mg/dl (0-1.1); BILIRUBIN,TOTAL 0.4 mg/dl (0.2-1.3); BLOOD UREA NITROGEN 27 mg/dl (7-20); CALCIUM 9.2 mg/dl (8.4-10.2); CARBON DIOXIDE 24 mmol/L (21-31); CHLORIDE 101 mmol/L (97-110); CREATININE 1.54 mg/dl (0.61-1.24); Estimated GFR 45 mL/min (>60); GLUCOSE 153 mg/dl (70-220); POTASSIUM 4.7 mmol/L (3.5-5.1); SODIUM 136 mmol/L (135-144); TOTAL PROTEIN 7.3 g/dl (6.1-8.1)
[2018-09-12 14:15] LABS: TROPONIN-I 0.012 ng/ml (0.000-0.120)
[2018-09-12 14:54] LABS: INR 2.25; PROTIME 24.9 Sec (11.9-14.9); PT RATIO 1.9
[2018-09-12 14:55] LABS: PARTIAL THROMBOPLASTIN TIME 50.1 Sec (23.0-35.0)
[2018-09-12] MEDS ORDERED: LIDOCAINE 1% (MPF) 5 ML VIAL SC (15:00)
[2018-09-12] MEDS: PIPER-TAZO 3.375 GM IV (PMX) 100 ML IVPB ×2 (15:21→15:30)
[2018-09-12] MEDS: FUROSEMIDE 40 MG INJ IV (15:21)
[2018-09-12] MEDS ORDERED: VANCOMYCIN IV PER PHARMACY XX (15:30)
[2018-09-12] MEDS ORDERED: DEXTROSE 50% 50 ML SYRINGE IV ×2 (17:00)
[2018-09-12] MEDS ORDERED: GLUCOSE GEL 15 GRAM TUBE PO ×2 (17:00)
[2018-09-12] MEDS ORDERED: GLUCAGON 1 MG INJ IM (17:00)
[2018-09-12] MEDS ORDERED: GLUCOSE GEL 15 GRAM TUBE BUCCAL (17:00)
[2018-09-12] MEDS: VANCOMYCIN 1 GM (PMX) 250 ML IVPB (17:47)
[2018-09-12] MEDS: NITROGLYCERIN 0.2 MG/HR PATCH TRANSDERM (17:48)
[2018-09-12] MEDS: PANTOPRAZOLE (EC) 40 MG TAB PO (17:50)
[2018-09-12] MEDS: INSULIN ASPART [NOVOLOG] 3 ML PEN SC ×2 (17:57→21:20)
[2018-09-12] MEDS: ATORVASTATIN 80 MG TAB PO (21:04)
[2018-09-12] MEDS: TAMSULOSIN (SR) 0.4 MG CAP PO (21:04)
[2018-09-12] MEDS: VANCOMYCIN HCL 1.25 GM in SOD CHLORIDE 0.9% 250 ML IVPB (21:05)
[2018-09-12] MEDS: NPH, HUMAN INSULIN ISOPHANE 3ML VIAL SC (21:20)
[2018-09-13] MEDS: PIPER-TAZO 3.375 GM IV (PMX) 100 ML IVPB ×4 (00:39→17:10)
[2018-09-13] MEDS: ACCU-CHEK XX (01:31)
[2018-09-13 07:03] LABS: ADD MAN DIFF? NO
[2018-09-13 07:12] LABS: WHITE BLOOD COUNT 12.3 10^3/ul (4.8-10.8)
[2018-09-13 07:12] LABS: ABNORMAL IP MESSAGE 1; BASOPHILS % 0.3 % (0.0-2.0); EOSINOPHILS # 0.3 10^3/ul (0.0-0.5); EOSINOPHILS % 2.7 % (0.0-7.0); HEMOGLOBIN 7.9 g/dl (14.0-18.0); LYMPHOCYTES # 0.9 10^3/ul (0.8-2.9); LYMPHOCYTES % 7.1 % (15.0-51.0); MEAN CORPUSCULAR HEMOGLOBIN 26.9 pg (29.0-33.0); MEAN CORPUSCULAR HGB CONC 31.6 g/dl (32.0-37.0); MEAN PLATELET VOLUME 10.9 fl (7.4-10.4); MONOCYTE # 1.5 10^3/ul (0.3-0.9); MONOCYTES % 12.5 % (0.0-11.0); NEUTROPHIL # 9.5 10^3/ul (1.6-7.5); PLATELET COUNT 252 10^3/UL (140-415); POSITIVE DIFF @See below; RED BLOOD COUNT 2.94 10^6/ul (4.70-6.10); RED CELL DISTRIBUTION WIDTH 16.9 % (11.5-14.5)
[2018-09-13 07:32] LABS: PROTIME 28.7 Sec (11.9-14.9); PT RATIO 2.2
[2018-09-13 07:40] LABS: ANION GAP 8 (5-13); BLOOD UREA NITROGEN 25 mg/dl (7-20); C-REACTIVE PROTEIN 6.1 mg/dl (0.0-0.9); CALCIUM 8.4 mg/dl (8.4-10.2); CARBON DIOXIDE 25 mmol/L (21-31); CHLORIDE 102 mmol/L (97-110); CREATININE 1.39 mg/dl (0.61-1.24); Estimated GFR 51 mL/min (>60); GLUCOSE 140 mg/dl (70-220); POTASSIUM 3.9 mmol/L (3.5-5.1); SODIUM 135 mmol/L (135-144)
[2018-09-13] MEDS: INSULIN ASPART [NOVOLOG] 3 ML PEN SC ×4 (07:57→20:26)
[2018-09-13] MEDS: NPH, HUMAN INSULIN ISOPHANE 3ML VIAL SC ×2 (07:58→17:25)
[2018-09-13] MEDS ORDERED: WARFARIN 10 MG TAB PO (09:00)
[2018-09-13] MEDS: FLUOXETINE 20 MG CAP PO (09:19)
[2018-09-13] MEDS: METOPROLOL (XL) 25 MG TAB PO (09:20)
[2018-09-13] MEDS: ASPIRIN (EC) 81 MG TAB PO (09:20)
[2018-09-13] MEDS: AMLODIPINE 10 MG TAB PO (09:21)
[2018-09-13] MEDS: PANTOPRAZOLE (EC) 40 MG TAB PO (09:21)
[2018-09-13] MEDS: FUROSEMIDE 40 MG INJ IV (12:51)
[2018-09-13] MEDS: WARFARIN 10 MG TAB PO (18:58)
[2018-09-13] MEDS: TAMSULOSIN (SR) 0.4 MG CAP PO (20:16)
[2018-09-13] MEDS: ATORVASTATIN 80 MG TAB PO (20:16)
[2018-09-13] MEDS: VANCOMYCIN HCL 1.25 GM in SOD CHLORIDE 0.9% 250 ML IVPB (20:16)
[2018-09-13] MEDS: ALBUTEROL/IPRATROPIUM (NEB) 3 ML AMP HHN (21:00)
[2018-09-14] MEDS: PIPER-TAZO 3.375 GM IV (PMX) 100 ML IVPB ×4 (01:14→17:48)
[2018-09-14] MEDS: ACCU-CHEK XX (01:14)
[2018-09-14 06:19] LABS: ADD MAN DIFF? NO; BASOPHILS % 0.5 % (0.0-2.0); EOSINOPHILS # 0.5 10^3/ul (0.0-0.5); EOSINOPHILS % 5.8 % (0.0-7.0); HEMATOCRIT 26.5 % (42.0-52.0); HEMOGLOBIN 8.1 g/dl (14.0-18.0); LYMPHOCYTES # 0.8 10^3/ul (0.8-2.9); LYMPHOCYTES % 9.3 % (15.0-51.0); MEAN CORPUSCULAR HEMOGLOBIN 26.3 pg (29.0-33.0); MEAN CORPUSCULAR HGB CONC 30.6 g/dl (32.0-37.0); MEAN PLATELET VOLUME 10.2 fl (7.4-10.4); MONOCYTE # 1.1 10^3/ul (0.3-0.9); MONOCYTES % 12.9 % (0.0-11.0); NEUTROPHIL # 6.3 10^3/ul (1.6-7.5); NEUTROPHILS % 71.2 % (39.0-77.0); PLATELET COUNT 259 10^3/UL (140-415); RED BLOOD COUNT 3.08 10^6/ul (4.70-6.10)
[2018-09-14 06:19] LABS: WHITE BLOOD COUNT 8.8 10^3/ul (4.8-10.8)
[2018-09-14 06:33] LABS: INR 2.66; PROTIME 28.4 Sec (11.9-14.9); PT RATIO 2.2
[2018-09-14 06:55] LABS: ANION GAP 7 (5-13); BLOOD UREA NITROGEN 24 mg/dl (7-20); CALCIUM 8.7 mg/dl (8.4-10.2); CARBON DIOXIDE 27 mmol/L (21-31); CHLORIDE 102 mmol/L (97-110); CREATININE 1.46 mg/dl (0.61-1.24); Estimated GFR 48 mL/min (>60); GLUCOSE 117 mg/dl (70-220); POTASSIUM 4.4 mmol/L (3.5-5.1); SODIUM 136 mmol/L (135-144)
[2018-09-14] MEDS: FLUOXETINE 20 MG CAP PO (08:32)
[2018-09-14] MEDS: PANTOPRAZOLE (EC) 40 MG TAB PO (08:32)
[2018-09-14] MEDS: METOPROLOL (XL) 25 MG TAB PO (08:33)
[2018-09-14] MEDS: ASPIRIN (EC) 81 MG TAB PO (08:33)
[2018-09-14] MEDS: FUROSEMIDE 40 MG INJ IV (08:34)
[2018-09-14] MEDS: AMLODIPINE 10 MG TAB PO (08:34)
[2018-09-14] MEDS: NPH, HUMAN INSULIN ISOPHANE 3ML VIAL SC ×2 (09:04→18:28)
[2018-09-14] MEDS: INSULIN ASPART [NOVOLOG] 3 ML PEN SC ×4 (09:45→21:00)
[2018-09-14] MEDS: LISINOPRIL 5 MG TAB PO (10:13)
[2018-09-14] MEDS: WARFARIN 10 MG TAB PO (17:43)
[2018-09-14] MEDS: EPOETIN ALFA-EPBX (ESRD) 10,000 UNIT/ML VIAL SC (17:45)
[2018-09-14] MEDS: ATORVASTATIN 80 MG TAB PO (21:45)
[2018-09-14] MEDS: TAMSULOSIN (SR) 0.4 MG CAP PO (21:45)
[2018-09-14] MEDS: VANCOMYCIN HCL 1.25 GM in SOD CHLORIDE 0.9% 250 ML IVPB (21:46)
[2018-09-15] MEDS: PIPER-TAZO 3.375 GM IV (PMX) 100 ML IVPB ×4 (00:04→17:30)
[2018-09-15] MEDS: ACCU-CHEK XX (02:00)
[2018-09-15 06:16] LABS: ADD MAN DIFF? NO
[2018-09-15 06:23] LABS: BASOPHILS % 0.5 % (0.0-2.0); EOSINOPHILS # 0.6 10^3/ul (0.0-0.5); EOSINOPHILS % 6.9 % (0.0-7.0); HEMATOCRIT 27.9 % (42.0-52.0); HEMOGLOBIN 8.6 g/dl (14.0-18.0); LYMPHOCYTES # 0.8 10^3/ul (0.8-2.9); LYMPHOCYTES % 9.7 % (15.0-51.0); MEAN CORPUSCULAR HEMOGLOBIN 26.5 pg (29.0-33.0); MEAN CORPUSCULAR HGB CONC 30.8 g/dl (32.0-37.0); MEAN CORPUSCULAR VOLUME 85.8 fl (82.0-101.0); MEAN PLATELET VOLUME 9.9 fl (7.4-10.4); NEUTROPHIL # 6.1 10^3/ul (1.6-7.5); NEUTROPHILS % 70.4 % (39.0-77.0); PLATELET COUNT 261 10^3/UL (140-415); RED BLOOD COUNT 3.25 10^6/ul (4.70-6.10); RED CELL DISTRIBUTION WIDTH 16.7 % (11.5-14.5)
[2018-09-15 06:23] LABS: WHITE BLOOD COUNT 8.7 10^3/ul (4.8-10.8)
[2018-09-15 06:42] LABS: INR 2.68; PROTIME 28.6 Sec (11.9-14.9); PT RATIO 2.2
[2018-09-15 06:58] LABS: ANION GAP 9 (5-13); BLOOD UREA NITROGEN 22 mg/dl (7-20); CALCIUM 8.9 mg/dl (8.4-10.2); CARBON DIOXIDE 29 mmol/L (21-31); CHLORIDE 99 mmol/L (97-110); CREATININE 1.37 mg/dl (0.61-1.24); Estimated GFR 52 mL/min (>60); GLUCOSE 122 mg/dl (70-220); MAGNESIUM 1.7 mg/dl (1.7-2.5); PHOSPHORUS 3.6 mg/dl (2.5-4.9); POTASSIUM 4.3 mmol/L (3.5-5.1); SODIUM 137 mmol/L (135-144)
[2018-09-15 07:04] LABS: IRON 28 ug/dl (35-150)
[2018-09-15 07:13] LABS: % IRON SATURATION 9 % SAT (22-52); TOTAL IRON BINDING CAPACITY 312 ug/dl (241-421)
[2018-09-15] MEDS: INSULIN ASPART [NOVOLOG] 3 ML PEN SC ×4 (07:52→21:00)
[2018-09-15] MEDS: NPH, HUMAN INSULIN ISOPHANE 3ML VIAL SC ×2 (07:53→17:39)
[2018-09-15] MEDS: FUROSEMIDE 40 MG TAB PO (09:00)
[2018-09-15] MEDS: FUROSEMIDE 40 MG INJ IV (09:04)
[2018-09-15] MEDS: AMLODIPINE 10 MG TAB PO (09:05)
[2018-09-15] MEDS: PANTOPRAZOLE (EC) 40 MG TAB PO (09:05)
[2018-09-15] MEDS: LISINOPRIL 5 MG TAB PO (09:05)
[2018-09-15] MEDS: METOPROLOL (XL) 25 MG TAB PO (09:06)
[2018-09-15] MEDS: ASPIRIN (EC) 81 MG TAB PO (09:06)
[2018-09-15 12:32] LABS: OCCULT BLOOD STOOL NEGATIVE (NEGATIVE)
[2018-09-15] MEDS: SOD FERRIC GLUC COMPLX 125 MG in SOD CHLORIDE 0.9% 100 ML IVPB (13:21)
[2018-09-15] MEDS ORDERED: COLLAGENASE 5 GM (UD JAR) TOP (17:15)
[2018-09-15] MEDS: WARFARIN 10 MG TAB PO (17:30)
[2018-09-15] MEDS: TAMSULOSIN (SR) 0.4 MG CAP PO (21:15)
[2018-09-15] MEDS: ATORVASTATIN 80 MG TAB PO (21:15)
[2018-09-15] MEDS: VANCOMYCIN HCL 1.25 GM in SOD CHLORIDE 0.9% 250 ML IVPB (22:38)
[2018-09-16] MEDS: PIPER-TAZO 3.375 GM IV (PMX) 100 ML IVPB ×5 (01:03→23:24)
[2018-09-16] MEDS: ACCU-CHEK XX (02:00)
[2018-09-16] MEDS ORDERED: COLLAGENASE 5 GM (UD JAR) TOP (05:50)
[2018-09-16 06:00] LABS: ADD MAN DIFF? NO
[2018-09-16 06:10] LABS: BASOPHIL # 0.1 10^3/ul (0.0-0.1); BASOPHILS % 0.8 % (0.0-2.0); EOSINOPHILS # 0.6 10^3/ul (0.0-0.5); EOSINOPHILS % 7.4 % (0.0-7.0); HEMATOCRIT 27.6 % (42.0-52.0); HEMOGLOBIN 8.6 g/dl (14.0-18.0); LYMPHOCYTES % 12.9 % (15.0-51.0); MEAN CORPUSCULAR HEMOGLOBIN 26.4 pg (29.0-33.0); MEAN CORPUSCULAR HGB CONC 31.2 g/dl (32.0-37.0); MEAN CORPUSCULAR VOLUME 84.7 fl (82.0-101.0); MEAN PLATELET VOLUME 10.3 fl (7.4-10.4); MONOCYTE # 0.9 10^3/ul (0.3-0.9); MONOCYTES % 10.9 % (0.0-11.0); NEUTROPHIL # 5.4 10^3/ul (1.6-7.5); NEUTROPHILS % 67.2 % (39.0-77.0); PLATELET COUNT 294 10^3/UL (140-415); RED BLOOD COUNT 3.26 10^6/ul (4.70-6.10); RED CELL DISTRIBUTION WIDTH 16.7 % (11.5-14.5)
[2018-09-16 06:30] LABS: INR 2.75; PROTIME 29.1 Sec (11.9-14.9); PT RATIO 2.3
[2018-09-16 06:53] LABS: ANION GAP 10 (5-13); BLOOD UREA NITROGEN 19 mg/dl (7-20); CALCIUM 8.9 mg/dl (8.4-10.2); CARBON DIOXIDE 27 mmol/L (21-31); CHLORIDE 100 mmol/L (97-110); CREATININE 1.43 mg/dl (0.61-1.24); Estimated GFR 49 mL/min (>60); GLUCOSE 136 mg/dl (70-220); MAGNESIUM 1.7 mg/dl (1.7-2.5); PHOSPHORUS 3.8 mg/dl (2.5-4.9); POTASSIUM 4.1 mmol/L (3.5-5.1); SODIUM 137 mmol/L (135-144)
[2018-09-16] MEDS: INSULIN ASPART [NOVOLOG] 3 ML PEN SC ×4 (08:00→20:54)
[2018-09-16] MEDS: NPH, HUMAN INSULIN ISOPHANE 3ML VIAL SC ×2 (08:18→17:20)
[2018-09-16] MEDS: ASPIRIN (EC) 81 MG TAB PO (08:18)
[2018-09-16] MEDS: DOXYCYCLINE 100 MG TAB PO ×2 (08:19→20:55)
[2018-09-16] MEDS: LISINOPRIL 5 MG TAB PO (08:19)
[2018-09-16] MEDS: FUROSEMIDE 40 MG TAB PO (08:19)
[2018-09-16] MEDS: PANTOPRAZOLE (EC) 40 MG TAB PO (08:19)
[2018-09-16] MEDS: METOPROLOL (XL) 25 MG TAB PO (08:20)
[2018-09-16] MEDS: COLLAGENASE 5 GM (UD JAR) TOP (08:20)
[2018-09-16] MEDS: AMLODIPINE 10 MG TAB PO (08:20)
[2018-09-16] MEDS: SOD FERRIC GLUC COMPLX 125 MG in SOD CHLORIDE 0.9% 100 ML IVPB (13:35)
[2018-09-16] MEDS: WARFARIN 10 MG TAB PO (17:15)
[2018-09-16] MEDS: EPOETIN ALFA-EPBX (ESRD) 10,000 UNIT/ML VIAL SC (17:24)
[2018-09-16] MEDS: TAMSULOSIN (SR) 0.4 MG CAP PO (20:55)
[2018-09-16] MEDS: ATORVASTATIN 80 MG TAB PO (20:55)
[2018-09-16] MEDS ORDERED: VANCOMYCIN HCL 1.5 GM in SOD CHLORIDE 0.9% 250 ML IVPB (21:00)
[2018-09-17] MEDS: ACCU-CHEK XX (01:52)
[2018-09-17] MEDS: PIPER-TAZO 3.375 GM IV (PMX) 100 ML IVPB (06:08)
[2018-09-17 07:01] LABS: INR 2.75; PROTIME 29.1 Sec (11.9-14.9); PT RATIO 2.3
[2018-09-17] MEDS: NPH, HUMAN INSULIN ISOPHANE 3ML VIAL SC (08:14)
[2018-09-17] MEDS: INSULIN ASPART [NOVOLOG] 3 ML PEN SC (08:15)
[2018-09-17] MEDS: PANTOPRAZOLE (EC) 40 MG TAB PO (08:30)
[2018-09-17] MEDS: COLLAGENASE 5 GM (UD JAR) TOP (08:30)
[2018-09-17] MEDS: ASPIRIN (EC) 81 MG TAB PO (08:30)
[2018-09-17] MEDS: FUROSEMIDE 40 MG TAB PO (08:30)
[2018-09-17] MEDS: LISINOPRIL 5 MG TAB PO (08:31)
[2018-09-17] MEDS: LEVOFLOXACIN 500 MG TAB PO (08:31)
[2018-09-17] MEDS: AMLODIPINE 10 MG TAB PO (08:31)
[2018-09-17] MEDS: WARFARIN 10 MG TAB PO (08:31)
[2018-09-17] MEDS: DOXYCYCLINE 100 MG TAB PO (08:32)
[2018-09-17] MEDS: METOPROLOL (XL) 25 MG TAB PO (08:32)
== END 2018-09-17 11:45 | disposition home or self-care (01) | DRG 299 ==
LOC: E/R 12:05 → 6WM 14:55
PROVIDERS: Internal Medicine
DX: E11.51 Type 2 diabetes mellitus with diabetic peripheral angiopathy without gangrene (principal); I50.43 Acute on chronic combined systolic (congestive) and diastolic (congestive) heart failure; I13.0 Hypertensive heart and chronic kidney disease with heart failure and stage 1 through stage 4 chronic kidney disease, or unspecified chronic kidney disease; L03.116 Cellulitis of left lower limb; M86.672 Other chronic osteomyelitis, left ankle and foot; Z68.41 Body mass index [BMI] 40.0-44.9, adult; L97.829 Non-pressure chronic ulcer of other part of left lower leg with unspecified severity; L97.229 Non-pressure chronic ulcer of left calf with unspecified severity; E11.69 Type 2 diabetes mellitus with other specified complication; E11.622 Type 2 diabetes mellitus with other skin ulcer; B96.5 Pseudomonas (aeruginosa) (mallei) (pseudomallei) as the cause of diseases classified elsewhere; B95.2 Enterococcus as the cause of diseases classified elsewhere; B95.7 Other staphylococcus as the cause of diseases classified elsewhere; L97.529 Non-pressure chronic ulcer of other part of left foot with unspecified severity; E11.40 Type 2 diabetes mellitus with diabetic neuropathy, unspecified; F32.9 Major depressive disorder, single episode, unspecified; Z95.1 Presence of aortocoronary bypass graft; E78.5 Hyperlipidemia, unspecified; Z86.73 Personal history of transient ischemic attack (TIA), and cerebral infarction without residual deficits; Z89.429 Acquired absence of other toe(s), unspecified side; Z91.14 Patient's other noncompliance with medication regimen; E66.01 Morbid (severe) obesity due to excess calories; J44.9 Chronic obstructive pulmonary disease, unspecified; I48.2 Chronic atrial fibrillation; N40.0 Benign prostatic hyperplasia without lower urinary tract symptoms; N18.3 Chronic kidney disease, stage 3 (moderate); I25.5 Ischemic cardiomyopathy; Z79.02 Long term (current) use of antithrombotics/antiplatelets; Z79.82 Long term (current) use of aspirin; Z79.4 Long term (current) use of insulin
CPT/HCPCS: 36415; 71045; 80048; 80053; 80202; 82270; 82728; 82962; 83540; 83605; 83735; 84100; 84484; 85025; 85610; 85651; 85730; 86140; 87040-91; 87070; 93005; 94660; 94664; 97116; 97161; 97530; 99285-25

== ENCOUNTER 2018-12-25 05:35 | Inpatient (IN) | payer MEDICARE | END 2018-12-25 06:30 | disposition home or self-care (01) | DRG 301 | LOC: REC 05:35 | DX: E11.51 Type 2 diabetes mellitus with diabetic peripheral angiopathy without gangrene (principal); Z53.8 Procedure and treatment not carried out for other reasons ==

== ENCOUNTER 2019-01-01 05:35 | Inpatient (IN) | payer MEDICARE, MEDICAID ==
[2019-01-01] MEDS: INSULIN REGULAR, HUMAN 100 UNIT/1 ML 3ML VIAL SC (06:40)
[2019-01-01] MEDS: SOD CHLORIDE 0.9% 1,000 ML IV ×3 (06:44→22:38)
[2019-01-01 06:52] LABS: ADD MAN DIFF? NO
[2019-01-01 06:55] LABS: BASOPHILS % 0.4 % (0.0-2.0); EOSINOPHILS # 0.4 10^3/ul (0.0-0.5); EOSINOPHILS % 3.5 % (0.0-7.0); HEMATOCRIT 36.2 % (42.0-52.0); HEMOGLOBIN 11.1 g/dl (14.0-18.0); LYMPHOCYTES % 9.1 % (15.0-51.0); MEAN CORPUSCULAR HEMOGLOBIN 26.8 pg (29.0-33.0); MEAN CORPUSCULAR HGB CONC 30.7 g/dl (32.0-37.0); MEAN CORPUSCULAR VOLUME 87.4 fl (82.0-101.0); MEAN PLATELET VOLUME 10.4 fl (7.4-10.4); MONOCYTE # 1.4 10^3/ul (0.3-0.9); MONOCYTES % 12.4 % (0.0-11.0); NEUTROPHIL # 8.2 10^3/ul (1.6-7.5); NEUTROPHILS % 74.1 % (39.0-77.0); PLATELET COUNT 341 10^3/UL (140-415); RED BLOOD COUNT 4.14 10^6/ul (4.70-6.10); RED CELL DISTRIBUTION WIDTH 18.6 % (11.5-14.5)
[2019-01-01 07:13] LABS: ANION GAP 10 (5-13); CARBON DIOXIDE 26 mmol/L (21-31); CHLORIDE 102 mmol/L (97-110); GLUCOSE 205 mg/dl (70-220); POTASSIUM 4.2 mmol/L (3.5-5.1); SODIUM 138 mmol/L (135-144)
[2019-01-01 07:14] LABS: ALANINE AMINOTRANSFERASE 17 IU/L (13-69); ALBUMIN 3.5 g/dl (3.3-4.9); ALBUMIN/GLOBULIN RATIO 1.12; ALKALINE PHOSPHATASE 130 IU/L (42-121); ASPARTATE AMINO TRANSFERASE 22 IU/L (15-46); BILIRUBIN,INDIRECT 0.6 mg/dl (0-1.1); BILIRUBIN,TOTAL 0.6 mg/dl (0.2-1.3); CALCIUM 9.2 mg/dl (8.4-10.2); Estimated GFR 54 mL/min (>60); TOTAL PROTEIN 6.6 g/dl (6.1-8.1)
[2019-01-01 07:20] LABS: BLOOD UREA NITROGEN 24 mg/dl (7-20); CREATININE 1.31 mg/dl (0.61-1.24)
[2019-01-01 07:25] LABS: PROTIME 13.3 Sec (11.9-14.9)
[2019-01-01 07:26] LABS: PARTIAL THROMBOPLASTIN TIME 33.6 Sec (23.0-35.0)
[2019-01-01] MEDS ORDERED: THROMBIN 20,000 UNIT VIAL (07:31)
[2019-01-01] MEDS ORDERED: GELATIN SIZE 100 SPONGE (07:31)
[2019-01-01] MEDS ORDERED: HEPARIN 1000 UNITS/ML 10 ML INJ ×3 (07:32→10:16)
[2019-01-01] MEDS ORDERED: THROMBIN 5000 UNIT (RECOTHROM) VIAL (07:33)
[2019-01-01] MEDS: HEPARIN 1000 UNITS/ML 10 ML INJ IRR (07:35)
[2019-01-01 07:37] LABS: THROMBIN TIME 17.8 SEC (13.8-19.1)
[2019-01-01] MEDS ORDERED: FENTAnyl 50 MCG/ML VIAL (07:49)
[2019-01-01] MEDS ORDERED: DESFLURANE 15 MIN (07:49)
[2019-01-01] MEDS ORDERED: ETOMIDATE 20 MG INJ (07:49)
[2019-01-01] MEDS ORDERED: PROPOFOL 20 ML (07:49)
[2019-01-01] MEDS ORDERED: CEFAZOLIN 1 GM INJ (07:49)
[2019-01-01] MEDS ORDERED: ALBUMIN HUMAN 5% 250 ML INJ (07:49)
[2019-01-01] MEDS ORDERED: ROCURONIUM 50 MG INJ (07:49)
[2019-01-01] MEDS ORDERED: ONDANSETRON 4 MG INJ (07:49)
[2019-01-01] MEDS ORDERED: DEXAMETHASONE 4 MG/ML 5 ML INJ (07:49)
[2019-01-01] MEDS ORDERED: NEOSTIGMINE 3 MG/3 ML SYRINGE (07:49)
[2019-01-01] MEDS ORDERED: GLYCOPYRROLATE 0.4 MG INJ (07:49)
[2019-01-01] MEDS ORDERED: MIDAZOLAM 1 MG/ML 2 ML INJ (07:49)
[2019-01-01 07:54] LABS: PLATELET COUNT 341 10^3/UL (140-415)
[2019-01-01] MEDS ORDERED: morphine SULFATE/PF (10 MG/10 ML) INJ (08:13)
[2019-01-01] MEDS: GELATIN SIZE 100 SPONGE TOP (10:18)
[2019-01-01] MEDS: THROMBIN 5000 UNIT (RECOTHROM) VIAL TOP (10:21)
[2019-01-01] MEDS ORDERED: SUGAMMADEX SODIUM 200 MG/2 ML VIAL IV (11:11)
[2019-01-01] MEDS ORDERED: niCARdipine 50 MG in SOD CHLORIDE 0.9% 480 ML IV (11:30)
[2019-01-01] MEDS: LACTATED RINGER'S 1,000 ML IV ×2 (11:30→13:02)
[2019-01-01] MEDS ORDERED: MIDAZOLAM 1 MG/ML 2 ML INJ IV (12:30)
[2019-01-01] MEDS ORDERED: FENTAnyl 50 MCG/ML VIAL IV ×3 (12:30)
[2019-01-01] MEDS ORDERED: HYDROmorphONE 0.5 MG/0.5 ML SYG IV ×5 (12:30)
[2019-01-01] MEDS ORDERED: TRIMETHOBENZAMIDE 100 MG/ML VIAL IM ×2 (12:30)
[2019-01-01] MEDS ORDERED: ALBUTEROL 0.083% (NEB) 2.5 MG/3 ML AMP HHN (12:30)
[2019-01-01] MEDS ORDERED: NALBUPHINE HCL (10 MG/1 ML) INJ IV (12:30)
[2019-01-01] MEDS ORDERED: EPHEDrine 25 MG/5 ML SYG IV (12:30)
[2019-01-01] MEDS ORDERED: LABETALOL HCL 20MG INJ IV (12:30)
[2019-01-01] MEDS ORDERED: DIPHENHYDRAMINE 50 MG INJ IV ×2 (12:30)
[2019-01-01] MEDS ORDERED: METOCLOPRAMIDE 10 MG INJ IV (12:30)
[2019-01-01] MEDS ORDERED: MEPERIDINE 25 MG INJ IV (12:30)
[2019-01-01] MEDS ORDERED: HALOPERIDOL 5 MG INJ IV (12:30)
[2019-01-01] MEDS ORDERED: NALOXONE (0.4 MG/ML) INJ IV (12:30)
[2019-01-01] MEDS ORDERED: ONDANSETRON 4 MG INJ IV ×3 (12:30→14:30)
[2019-01-01] MEDS ORDERED: hydrALAzine 20 MG INJ IV (12:30)
[2019-01-01] MEDS ORDERED: IPRATROPIUM (NEB) 0.5 MG/2.5 ML AMP HHN (12:30)
[2019-01-01] MEDS ORDERED: COLLAGENASE 30 GM TUBE TOP (13:30)
[2019-01-01] MEDS ORDERED: NACL 0.9% 3 ML SYG IV (14:30)
[2019-01-01] MEDS: WARFARIN 10 MG TAB PO (15:59)
[2019-01-01] MEDS: ASPIRIN (EC) 81 MG TAB PO (16:04)
[2019-01-01] MEDS ORDERED: NPH, HUMAN INSULIN ISOPHANE 3ML VIAL SC (17:30)
[2019-01-01] MEDS: INSULIN ASPART [NOVOLOG] 3 ML PEN SC ×2 (17:35→21:00)
[2019-01-01] MEDS: ZOLPIDEM 5 MG TAB PO (20:42)
[2019-01-01] MEDS: TAMSULOSIN (SR) 0.4 MG CAP PO (20:42)
[2019-01-01] MEDS: FAMOTIDINE 20 MG INJ IV (20:42)
[2019-01-01] MEDS: ATORVASTATIN 80 MG TAB PO (20:42)
[2019-01-02] MEDS: ACCU-CHEK XX ×2 (01:30→23:30)
[2019-01-02 05:10] LABS: ADD MAN DIFF? NO
[2019-01-02 05:12] LABS: ABNORMAL IP MESSAGE 1; BASOPHILS % 0.2 % (0.0-2.0); HEMATOCRIT 27.2 % (42.0-52.0); HEMOGLOBIN 8.7 g/dl (14.0-18.0); LYMPHOCYTES # 0.5 10^3/ul (0.8-2.9); LYMPHOCYTES % 3.6 % (15.0-51.0); MEAN CORPUSCULAR HEMOGLOBIN 27.3 pg (29.0-33.0); MEAN CORPUSCULAR VOLUME 85.3 fl (82.0-101.0); MEAN PLATELET VOLUME 10.5 fl (7.4-10.4); MONOCYTE # 1.5 10^3/ul (0.3-0.9); MONOCYTES % 12.2 % (0.0-11.0); NEUTROPHIL # 10.5 10^3/ul (1.6-7.5); NEUTROPHILS % 83.4 % (39.0-77.0); PLATELET COUNT 300 10^3/UL (140-415); POSITIVE DIFF @See below; RED BLOOD COUNT 3.19 10^6/ul (4.70-6.10); RED CELL DISTRIBUTION WIDTH 18.4 % (11.5-14.5)
[2019-01-02 05:12] LABS: WHITE BLOOD COUNT 12.6 10^3/ul (4.8-10.8)
[2019-01-02 06:01] LABS: MAGNESIUM 1.5 mg/dl (1.7-2.5)
[2019-01-02 06:01] LABS: PHOSPHORUS 3.8 mg/dl (2.5-4.9)
[2019-01-02 06:03] LABS: ALANINE AMINOTRANSFERASE 16 IU/L (13-69); ALBUMIN 2.8 g/dl (3.3-4.9); ALKALINE PHOSPHATASE 93 IU/L (42-121); ANION GAP 7 (5-13); ASPARTATE AMINO TRANSFERASE 17 IU/L (15-46); BILIRUBIN,INDIRECT 0.6 mg/dl (0-1.1); BILIRUBIN,TOTAL 0.6 mg/dl (0.2-1.3); BLOOD UREA NITROGEN 28 mg/dl (7-20); CALCIUM 8.1 mg/dl (8.4-10.2); CARBON DIOXIDE 23 mmol/L (21-31); CHLORIDE 105 mmol/L (97-110); CHOL/HDL RATIO 2.8 RATIO; CHOLESTEROL 84 mg/dl (100-200); CREATININE 1.12 mg/dl (0.61-1.24); Estimated GFR > 60 mL/min (>60); GLUCOSE 259 mg/dl (70-220); HDL CHOLESTEROL 30 mg/dl (31-75); LDL CHOLESTEROL,CALCULATED 44 mg/dl; POTASSIUM 4.6 mmol/L (3.5-5.1); SODIUM 135 mmol/L (135-144); TOTAL PROTEIN 5.9 g/dl (6.1-8.1); TRIGLYCERIDES 49 mg/dl (0-149)
[2019-01-02 06:07] LABS: INR 1.14; PROTIME 14.7 Sec (11.9-14.9); PT RATIO 1.1
[2019-01-02] MEDS: SOD CHLORIDE 0.9% 1,000 ML IV (06:09)
[2019-01-02 06:22] LABS: FREE THYROXINE INDEX (Calc) 1.75 ug/ml (0.65-3.89)
[2019-01-02 06:27] LABS: T4 (THYROXINE) 3.3 ug/dl (5.5-11.0)
[2019-01-02] MEDS ORDERED: NPH, HUMAN INSULIN ISOPHANE 3ML VIAL SC (08:00)
[2019-01-02 08:33] LABS: HEMOGLOBIN A1C 7.1 % (0-5.9)
[2019-01-02] MEDS: INSULIN ASPART [NOVOLOG] 3 ML PEN SC ×6 (08:33→21:30)
[2019-01-02] MEDS: COLLAGENASE 5 GM (UD JAR) TOP (08:34)
[2019-01-02] MEDS: PANTOPRAZOLE (EC) 40 MG TAB PO (08:34)
[2019-01-02] MEDS: ASPIRIN (EC) 81 MG TAB PO (08:35)
[2019-01-02] MEDS: FLUOXETINE 20 MG CAP PO (08:35)
[2019-01-02] MEDS: LISINOPRIL 5 MG TAB PO (08:35)
[2019-01-02] MEDS: METOPROLOL (XL) 25 MG TAB PO (08:35)
[2019-01-02] MEDS: AMLODIPINE 10 MG TAB PO (08:36)
[2019-01-02] MEDS ORDERED: FUROSEMIDE 40 MG TAB PO (09:00)
[2019-01-02] MEDS: FAMOTIDINE 20 MG INJ IV ×2 (11:20→20:46)
[2019-01-02] MEDS: MAGNESIUM SULFATE 3 GM in DEXTROSE 5% 100 ML IVPB (11:58)
[2019-01-02] MEDS ORDERED: GLUCOSE GEL 15 GRAM TUBE PO ×2 (13:00)
[2019-01-02] MEDS ORDERED: GLUCAGON 1 MG INJ IM (13:00)
[2019-01-02] MEDS ORDERED: GLUCOSE GEL 15 GRAM TUBE BUCCAL (13:00)
[2019-01-02] MEDS ORDERED: DEXTROSE 50% 50 ML SYRINGE IV ×2 (13:00)
[2019-01-02] MEDS ORDERED: INSULIN GLARGINE [LANTus] (100 UNITS/ML) SYG SC (20:00)
[2019-01-02] MEDS: TAMSULOSIN (SR) 0.4 MG CAP PO (20:45)
[2019-01-02] MEDS: ATORVASTATIN 80 MG TAB PO (20:45)
[2019-01-02] MEDS: INSULIN GLARGINE [LANTus] (100 UNITS/ML) SYG SC (20:53)
[2019-01-02] MEDS: EPOETIN ALFA-EPBX (NON-ESRD 10,000 UNIT/ML VIAL SC (20:59)
[2019-01-03] MEDS: ACCU-CHEK XX (02:50)
[2019-01-03 06:53] LABS: ADD MAN DIFF? NO
[2019-01-03 06:55] LABS: ABNORMAL IP MESSAGE 1; BASOPHILS % 0.4 % (0.0-2.0); EOSINOPHILS # 0.1 10^3/ul (0.0-0.5); EOSINOPHILS % 0.8 % (0.0-7.0); HEMOGLOBIN 8.5 g/dl (14.0-18.0); LYMPHOCYTES # 1.4 10^3/ul (0.8-2.9); LYMPHOCYTES % 13.1 % (15.0-51.0); MEAN CORPUSCULAR HGB CONC 31.5 g/dl (32.0-37.0); MEAN CORPUSCULAR VOLUME 85.7 fl (82.0-101.0); MEAN PLATELET VOLUME 10.1 fl (7.4-10.4); MONOCYTE # 1.5 10^3/ul (0.3-0.9); MONOCYTES % 14.1 % (0.0-11.0); NEUTROPHIL # 7.8 10^3/ul (1.6-7.5); NEUTROPHILS % 71.1 % (39.0-77.0); PLATELET COUNT 290 10^3/UL (140-415); POSITIVE DIFF @See below; RED BLOOD COUNT 3.15 10^6/ul (4.70-6.10); RED CELL DISTRIBUTION WIDTH 18.4 % (11.5-14.5)
[2019-01-03 06:55] LABS: WHITE BLOOD COUNT 10.9 10^3/ul (4.8-10.8)
[2019-01-03 07:14] LABS: PROTIME 14.3 Sec (11.9-14.9); PT RATIO 1.1
[2019-01-03 07:21] LABS: ANION GAP 6 (5-13); BLOOD UREA NITROGEN 35 mg/dl (7-20); CALCIUM 8.6 mg/dl (8.4-10.2); CARBON DIOXIDE 26 mmol/L (21-31); CHLORIDE 102 mmol/L (97-110); CREATININE 1.23 mg/dl (0.61-1.24); Estimated GFR 58 mL/min (>60); GLUCOSE 241 mg/dl (70-220); PHOSPHORUS 3.2 mg/dl (2.5-4.9); SODIUM 134 mmol/L (135-144)
[2019-01-03 07:28] LABS: POTASSIUM 4.6 mmol/L (3.5-5.1)
[2019-01-03 07:49] LABS: IRON 18 ug/dl (35-150)
[2019-01-03 07:58] LABS: % IRON SATURATION 6 % SAT (22-52); TOTAL IRON BINDING CAPACITY 287 ug/dl (241-421)
[2019-01-03] MEDS: INSULIN ASPART [NOVOLOG] 3 ML PEN SC ×7 (09:03→21:44)
[2019-01-03 09:17] LABS: FERRITIN 56.9 ng/ml (11.1-264.0)
[2019-01-03] MEDS: AMLODIPINE 10 MG TAB PO (09:24)
[2019-01-03] MEDS: PANTOPRAZOLE (EC) 40 MG TAB PO (09:24)
[2019-01-03] MEDS: FLUOXETINE 20 MG CAP PO (09:24)
[2019-01-03] MEDS: LISINOPRIL 5 MG TAB PO (09:24)
[2019-01-03] MEDS: METOPROLOL (XL) 25 MG TAB PO (09:25)
[2019-01-03] MEDS: FAMOTIDINE 20 MG INJ IV ×2 (09:25→21:44)
[2019-01-03] MEDS: ASPIRIN (EC) 81 MG TAB PO (09:25)
[2019-01-03] MEDS: COLLAGENASE 5 GM (UD JAR) TOP (09:25)
[2019-01-03] MEDS ORDERED: FUROSEMIDE 40 MG/4 ML CUP PEG (11:30)
[2019-01-03] MEDS ORDERED: WARFARIN 7.5 MG TAB PO (11:30)
[2019-01-03] MEDS: ENOXAPARIN 40 MG/0.4 ML SYG SC (12:18)
[2019-01-03] MEDS: WARFARIN 5 MG TAB PO (13:34)
[2019-01-03] MEDS: FUROSEMIDE 40 MG TAB PO (13:35)
[2019-01-03] MEDS: SOD FERRIC GLUC COMPLX 125 MG in SOD CHLORIDE 0.9% 100 ML IVPB (14:10)
[2019-01-03] MEDS: INSULIN GLARGINE [LANTus] (100 UNITS/ML) SYG SC (21:42)
[2019-01-03] MEDS: ATORVASTATIN 80 MG TAB PO (21:44)
[2019-01-03] MEDS: TAMSULOSIN (SR) 0.4 MG CAP PO (21:44)
[2019-01-04] MEDS: ACCU-CHEK XX (02:00)
[2019-01-04] MEDS: MUPIROCIN 2% 22 GM OINT TOP ×3 (02:56→20:34)
[2019-01-04] MEDS: INSULIN ASPART [NOVOLOG] 3 ML PEN SC ×7 (08:05→21:24)
[2019-01-04 08:25] LABS: ADD MAN DIFF? NO
[2019-01-04 08:34] LABS: BASOPHILS % 0.3 % (0.0-2.0); EOSINOPHILS # 0.2 10^3/ul (0.0-0.5); EOSINOPHILS % 1.9 % (0.0-7.0); HEMATOCRIT 28.4 % (42.0-52.0); HEMOGLOBIN 8.6 g/dl (14.0-18.0); LYMPHOCYTES # 1.3 10^3/ul (0.8-2.9); MEAN CORPUSCULAR HEMOGLOBIN 26.3 pg (29.0-33.0); MEAN CORPUSCULAR HGB CONC 30.3 g/dl (32.0-37.0); MEAN CORPUSCULAR VOLUME 86.9 fl (82.0-101.0); MEAN PLATELET VOLUME 10.4 fl (7.4-10.4); MONOCYTE # 1.3 10^3/ul (0.3-0.9); MONOCYTES % 10.5 % (0.0-11.0); NEUTROPHIL # 9.1 10^3/ul (1.6-7.5); NEUTROPHILS % 75.6 % (39.0-77.0); PLATELET COUNT 315 10^3/UL (140-415); RED BLOOD COUNT 3.27 10^6/ul (4.70-6.10); RED CELL DISTRIBUTION WIDTH 18.3 % (11.5-14.5)
[2019-01-04 09:01] LABS: ANION GAP 7 (5-13); BLOOD UREA NITROGEN 31 mg/dl (7-20); CALCIUM 8.6 mg/dl (8.4-10.2); CARBON DIOXIDE 28 mmol/L (21-31); CHLORIDE 100 mmol/L (97-110); CREATININE 1.16 mg/dl (0.61-1.24); Estimated GFR > 60 mL/min (>60); GLUCOSE 177 mg/dl (70-220); POTASSIUM 4.2 mmol/L (3.5-5.1); SODIUM 135 mmol/L (135-144)
[2019-01-04 09:05] LABS: INR 1.11; PROTIME 14.4 Sec (11.9-14.9); PT RATIO 1.1
[2019-01-04] MEDS: FLUOXETINE 20 MG CAP PO (09:32)
[2019-01-04] MEDS: FUROSEMIDE 40 MG/4 ML CUP PO (09:32)
[2019-01-04] MEDS: COLLAGENASE 5 GM (UD JAR) TOP (09:32)
[2019-01-04] MEDS: ASPIRIN (EC) 81 MG TAB PO (09:33)
[2019-01-04] MEDS: LISINOPRIL 5 MG TAB PO (09:33)
[2019-01-04] MEDS: AMLODIPINE 10 MG TAB PO (09:33)
[2019-01-04] MEDS: METOPROLOL (XL) 25 MG TAB PO (09:33)
[2019-01-04] MEDS: PANTOPRAZOLE (EC) 40 MG TAB PO (09:33)
[2019-01-04] MEDS: FAMOTIDINE 20 MG INJ IV ×2 (09:33→20:34)
[2019-01-04] MEDS: ENOXAPARIN 80 MG/0.8 ML SYG SC ×2 (09:50→22:18)
[2019-01-04] MEDS: SOD FERRIC GLUC COMPLX 125 MG in SOD CHLORIDE 0.9% 100 ML IVPB (12:09)
[2019-01-04] MEDS: PIPER-TAZO 3.375 GM IV (PMX) 100 ML IVPB ×3 (15:11→23:40)
[2019-01-04] MEDS: WARFARIN 7.5 MG TAB PO (17:21)
[2019-01-04] MEDS: ATORVASTATIN 80 MG TAB PO (20:31)
[2019-01-04] MEDS: TAMSULOSIN (SR) 0.4 MG CAP PO (20:31)
[2019-01-04] MEDS: INSULIN GLARGINE [LANTus] (100 UNITS/ML) SYG SC (20:49)
[2019-01-05] MEDS: ACCU-CHEK XX (02:23)
[2019-01-05] MEDS: PIPER-TAZO 3.375 GM IV (PMX) 100 ML IVPB ×4 (05:32→23:46)
[2019-01-05 06:47] LABS: ADD MAN DIFF? NO
[2019-01-05 06:51] LABS: WHITE BLOOD COUNT 11.1 10^3/ul (4.8-10.8)
[2019-01-05 06:51] LABS: BASOPHIL # 0.1 10^3/ul (0.0-0.1); BASOPHILS % 0.5 % (0.0-2.0); EOSINOPHILS # 0.3 10^3/ul (0.0-0.5); EOSINOPHILS % 2.3 % (0.0-7.0); HEMATOCRIT 26.9 % (42.0-52.0); HEMOGLOBIN 8.4 g/dl (14.0-18.0); LYMPHOCYTES # 1.3 10^3/ul (0.8-2.9); LYMPHOCYTES % 11.8 % (15.0-51.0); MEAN CORPUSCULAR HEMOGLOBIN 26.8 pg (29.0-33.0); MEAN CORPUSCULAR HGB CONC 31.2 g/dl (32.0-37.0); MEAN CORPUSCULAR VOLUME 85.7 fl (82.0-101.0); MEAN PLATELET VOLUME 10.2 fl (7.4-10.4); MONOCYTE # 1.2 10^3/ul (0.3-0.9); MONOCYTES % 10.8 % (0.0-11.0); NEUTROPHIL # 8.2 10^3/ul (1.6-7.5); NEUTROPHILS % 73.7 % (39.0-77.0); PLATELET COUNT 329 10^3/UL (140-415); RED BLOOD COUNT 3.14 10^6/ul (4.70-6.10); RED CELL DISTRIBUTION WIDTH 18.3 % (11.5-14.5)
[2019-01-05 07:07] LABS: ANION GAP 8 (5-13); BLOOD UREA NITROGEN 27 mg/dl (7-20); CALCIUM 8.5 mg/dl (8.4-10.2); CARBON DIOXIDE 27 mmol/L (21-31); CHLORIDE 102 mmol/L (97-110); CREATININE 1.23 mg/dl (0.61-1.24); Estimated GFR 58 mL/min (>60); GLUCOSE 151 mg/dl (70-220); MAGNESIUM 1.7 mg/dl (1.7-2.5); PHOSPHORUS 3.9 mg/dl (2.5-4.9); POTASSIUM 4.3 mmol/L (3.5-5.1); SODIUM 137 mmol/L (135-144)
[2019-01-05 07:16] LABS: C-REACTIVE PROTEIN 3.7 mg/dl (0.0-0.9)
[2019-01-05 07:21] LABS: INR 1.29; PROTIME 16.2 Sec (11.9-14.9); PT RATIO 1.3
[2019-01-05 08:15] LABS: ERYTHROCYTE SEDIMENTATION RATE 51 mm/Hr (0-20)
[2019-01-05] MEDS: AMLODIPINE 10 MG TAB PO (08:38)
[2019-01-05] MEDS: PANTOPRAZOLE (EC) 40 MG TAB PO (08:38)
[2019-01-05] MEDS: FUROSEMIDE 40 MG/4 ML CUP PO (08:38)
[2019-01-05] MEDS: FLUOXETINE 20 MG CAP PO (08:38)
[2019-01-05] MEDS: LISINOPRIL 5 MG TAB PO (08:39)
[2019-01-05] MEDS: ASPIRIN (EC) 81 MG TAB PO (08:39)
[2019-01-05] MEDS: METOPROLOL (XL) 25 MG TAB PO (08:39)
[2019-01-05] MEDS: FAMOTIDINE 20 MG INJ IV ×2 (08:41→20:46)
[2019-01-05] MEDS: INSULIN ASPART [NOVOLOG] 3 ML PEN SC ×7 (08:58→20:45)
[2019-01-05] MEDS: ENOXAPARIN 80 MG/0.8 ML SYG SC ×2 (08:58→21:11)
[2019-01-05] MEDS: COLLAGENASE 5 GM (UD JAR) TOP (10:42)
[2019-01-05] MEDS: MUPIROCIN 2% 22 GM OINT TOP ×2 (10:42→21:15)
[2019-01-05 12:27] LABS: C-REACTIVE PROTEIN 3.7 mg/dl (0.0-0.9)
[2019-01-05 12:39] LABS: ERYTHROCYTE SEDIMENTATION RATE 54 mm/Hr (0-20)
[2019-01-05] MEDS: SOD FERRIC GLUC COMPLX 125 MG in SOD CHLORIDE 0.9% 100 ML IVPB (14:33)
[2019-01-05] MEDS: WARFARIN 7.5 MG TAB PO (17:35)
[2019-01-05] MEDS: EPOETIN ALFA-EPBX (NON-ESRD 10,000 UNIT/ML VIAL SC (17:38)
[2019-01-05] MEDS: ATORVASTATIN 80 MG TAB PO (20:46)
[2019-01-05] MEDS: TAMSULOSIN (SR) 0.4 MG CAP PO (20:46)
[2019-01-05] MEDS: INSULIN GLARGINE [LANTus] (100 UNITS/ML) SYG SC (21:11)
[2019-01-06] MEDS: ACCU-CHEK XX (01:17)
[2019-01-06] MEDS: PIPER-TAZO 3.375 GM IV (PMX) 100 ML IVPB ×4 (05:58→23:34)
[2019-01-06 06:37] LABS: ADD MAN DIFF? NO
[2019-01-06 06:50] LABS: WHITE BLOOD COUNT 11.9 10^3/ul (4.8-10.8)
[2019-01-06 06:50] LABS: ABNORMAL IP MESSAGE 1; BASOPHIL # 0.1 10^3/ul (0.0-0.1); BASOPHILS % 0.5 % (0.0-2.0); EOSINOPHILS # 0.2 10^3/ul (0.0-0.5); EOSINOPHILS % 1.7 % (0.0-7.0); HEMATOCRIT 28.3 % (42.0-52.0); HEMOGLOBIN 8.5 g/dl (14.0-18.0); LYMPHOCYTES # 1.1 10^3/ul (0.8-2.9); LYMPHOCYTES % 9.6 % (15.0-51.0); MEAN CORPUSCULAR HEMOGLOBIN 26.6 pg (29.0-33.0); MEAN CORPUSCULAR VOLUME 88.4 fl (82.0-101.0); MEAN PLATELET VOLUME 10.6 fl (7.4-10.4); MONOCYTE # 1.6 10^3/ul (0.3-0.9); MONOCYTES % 13.4 % (0.0-11.0); NEUTROPHIL # 8.8 10^3/ul (1.6-7.5); NEUTROPHILS % 73.8 % (39.0-77.0); PLATELET COUNT 359 10^3/UL (140-415); POSITIVE DIFF @See below; RED CELL DISTRIBUTION WIDTH 18.6 % (11.5-14.5)
[2019-01-06 07:08] LABS: PROTIME 18.2 Sec (11.9-14.9); PT RATIO 1.4
[2019-01-06 07:12] LABS: ANION GAP 6 (5-13); BLOOD UREA NITROGEN 26 mg/dl (7-20); CALCIUM 8.7 mg/dl (8.4-10.2); CARBON DIOXIDE 29 mmol/L (21-31); CHLORIDE 100 mmol/L (97-110); CREATININE 1.31 mg/dl (0.61-1.24); Estimated GFR 54 mL/min (>60); GLUCOSE 79 mg/dl (70-220); SODIUM 135 mmol/L (135-144)
[2019-01-06] MEDS ORDERED: VANCOMYCIN IV PER PHARMACY XX (07:30)
[2019-01-06] MEDS: INSULIN ASPART [NOVOLOG] 3 ML PEN SC ×7 (07:55→21:00)
[2019-01-06] MEDS: AMLODIPINE 10 MG TAB PO (08:53)
[2019-01-06] MEDS: PANTOPRAZOLE (EC) 40 MG TAB PO (08:53)
[2019-01-06] MEDS: LISINOPRIL 5 MG TAB PO (08:54)
[2019-01-06] MEDS: FAMOTIDINE 20 MG INJ IV ×2 (08:54→22:01)
[2019-01-06] MEDS: FUROSEMIDE 40 MG/4 ML CUP PO (08:54)
[2019-01-06] MEDS: ASPIRIN (EC) 81 MG TAB PO (08:54)
[2019-01-06] MEDS: FLUOXETINE 20 MG CAP PO (08:54)
[2019-01-06] MEDS: METOPROLOL (XL) 25 MG TAB PO (08:56)
[2019-01-06] MEDS: VANCOMYCIN 1.25 GM/NS 250 ML 250 ML IVPB ×2 (08:56→23:31)
[2019-01-06] MEDS: MUPIROCIN 2% 22 GM OINT TOP ×2 (09:01→22:02)
[2019-01-06] MEDS: COLLAGENASE 5 GM (UD JAR) TOP (09:01)
[2019-01-06] MEDS: ENOXAPARIN 80 MG/0.8 ML SYG SC ×2 (09:21→22:16)
[2019-01-06] MEDS: SOD FERRIC GLUC COMPLX 125 MG in SOD CHLORIDE 0.9% 100 ML IVPB (17:32)
[2019-01-06] MEDS: WARFARIN 7.5 MG TAB PO (17:32)
[2019-01-06] MEDS: TAMSULOSIN (SR) 0.4 MG CAP PO (22:01)
[2019-01-06] MEDS: ATORVASTATIN 80 MG TAB PO (22:01)
[2019-01-06] MEDS: INSULIN GLARGINE [LANTus] (100 UNITS/ML) SYG SC (22:17)
[2019-01-06] MEDS: ACETAMINOPHEN 325 MG TAB PO (22:45)
[2019-01-07] MEDS: ACCU-CHEK XX (02:16)
[2019-01-07] MEDS: HYDROCODONE/APAP (5/325) TAB PO ×3 (02:20→22:03)
[2019-01-07] MEDS: PIPER-TAZO 3.375 GM IV (PMX) 100 ML IVPB (06:16)
[2019-01-07 06:33] LABS: ADD MAN DIFF? NO
[2019-01-07 06:42] LABS: ABNORMAL IP MESSAGE 1; BASOPHILS % 0.3 % (0.0-2.0); EOSINOPHILS # 0.2 10^3/ul (0.0-0.5); EOSINOPHILS % 1.7 % (0.0-7.0); HEMATOCRIT 24.9 % (42.0-52.0); HEMOGLOBIN 7.7 g/dl (14.0-18.0); LYMPHOCYTES # 1.1 10^3/ul (0.8-2.9); LYMPHOCYTES % 9.3 % (15.0-51.0); MEAN CORPUSCULAR HGB CONC 30.9 g/dl (32.0-37.0); MEAN CORPUSCULAR VOLUME 87.4 fl (82.0-101.0); MEAN PLATELET VOLUME 10.7 fl (7.4-10.4); MONOCYTES % 16.7 % (0.0-11.0); NEUTROPHIL # 8.4 10^3/ul (1.6-7.5); NEUTROPHILS % 70.7 % (39.0-77.0); PLATELET COUNT 319 10^3/UL (140-415); POSITIVE DIFF @See below; RED BLOOD COUNT 2.85 10^6/ul (4.70-6.10); RED CELL DISTRIBUTION WIDTH 18.8 % (11.5-14.5)
[2019-01-07 06:42] LABS: WHITE BLOOD COUNT 11.9 10^3/ul (4.8-10.8)
[2019-01-07 07:00] LABS: INR 1.66; PROTIME 19.7 Sec (11.9-14.9); PT RATIO 1.5
[2019-01-07 07:05] LABS: ANION GAP 5 (5-13); BLOOD UREA NITROGEN 27 mg/dl (7-20); CALCIUM 8.3 mg/dl (8.4-10.2); CARBON DIOXIDE 28 mmol/L (21-31); CHLORIDE 101 mmol/L (97-110); CREATININE 1.32 mg/dl (0.61-1.24); Estimated GFR 54 mL/min (>60); GLUCOSE 129 mg/dl (70-220); POTASSIUM 4.2 mmol/L (3.5-5.1); SODIUM 134 mmol/L (135-144)
[2019-01-07] MEDS: INSULIN ASPART [NOVOLOG] 3 ML PEN SC ×7 (07:51→20:17)
[2019-01-07] MEDS: FLUOXETINE 20 MG CAP PO (09:03)
[2019-01-07] MEDS: METOPROLOL (XL) 25 MG TAB PO (09:03)
[2019-01-07] MEDS: PANTOPRAZOLE (EC) 40 MG TAB PO (09:03)
[2019-01-07] MEDS: LEVOFLOXACIN 500 MG TAB PO (09:03)
[2019-01-07] MEDS: AMLODIPINE 10 MG TAB PO (09:04)
[2019-01-07] MEDS: ASPIRIN (EC) 81 MG TAB PO (09:04)
[2019-01-07] MEDS: FUROSEMIDE 40 MG/4 ML CUP PO (09:04)
[2019-01-07] MEDS: LISINOPRIL 5 MG TAB PO (09:05)
[2019-01-07] MEDS: FAMOTIDINE 20 MG INJ IV ×2 (09:07→20:14)
[2019-01-07] MEDS: MUPIROCIN 2% 22 GM OINT TOP ×2 (09:44→20:16)
[2019-01-07] MEDS: COLLAGENASE 5 GM (UD JAR) TOP (09:49)
[2019-01-07] MEDS: VANCOMYCIN 1.25 GM/NS 250 ML 250 ML IVPB (11:50)
[2019-01-07] MEDS ORDERED: VANCOMYCIN 1.25 GM/NS 250 ML 250 ML IVPB (12:00)
[2019-01-07 14:24] LABS: ADD MAN DIFF? NO
[2019-01-07 14:26] LABS: ABNORMAL IP MESSAGE 1; BASOPHILS % 0.2 % (0.0-2.0); EOSINOPHILS # 0.2 10^3/ul (0.0-0.5); EOSINOPHILS % 1.4 % (0.0-7.0); HEMOGLOBIN 7.9 g/dl (14.0-18.0); LYMPHOCYTES # 0.8 10^3/ul (0.8-2.9); LYMPHOCYTES % 6.1 % (15.0-51.0); MEAN CORPUSCULAR HEMOGLOBIN 27.4 pg (29.0-33.0); MEAN CORPUSCULAR HGB CONC 30.4 g/dl (32.0-37.0); MEAN CORPUSCULAR VOLUME 90.3 fl (82.0-101.0); MEAN PLATELET VOLUME 10.7 fl (7.4-10.4); MONOCYTES % 14.8 % (0.0-11.0); NEUTROPHIL # 10.1 10^3/ul (1.6-7.5); NEUTROPHILS % 76.4 % (39.0-77.0); PLATELET COUNT 319 10^3/UL (140-415); POSITIVE DIFF @See below; RED BLOOD COUNT 2.88 10^6/ul (4.70-6.10); RED CELL DISTRIBUTION WIDTH 18.9 % (11.5-14.5)
[2019-01-07 14:26] LABS: WHITE BLOOD COUNT 13.2 10^3/ul (4.8-10.8)
[2019-01-07] MEDS: SOD FERRIC GLUC COMPLX 125 MG in SOD CHLORIDE 0.9% 100 ML IVPB (14:52)
[2019-01-07] MEDS ORDERED: WARFARIN 7.5 MG TAB PO (17:00)
[2019-01-07] MEDS: EPOETIN ALFA-EPBX (NON-ESRD 10,000 UNIT/ML VIAL SC (17:48)
[2019-01-07] MEDS: TAMSULOSIN (SR) 0.4 MG CAP PO (20:14)
[2019-01-07] MEDS: ATORVASTATIN 80 MG TAB PO (20:14)
[2019-01-07] MEDS: INSULIN GLARGINE [LANTus] (100 UNITS/ML) SYG SC (20:39)
[2019-01-07 21:33] LABS: IMMEDIATE SPIN CROSSMATCH 1 1
[2019-01-08] MEDS: ACCU-CHEK XX (01:54)
[2019-01-08 06:53] LABS: ADD MAN DIFF? NO
[2019-01-08 06:57] LABS: WHITE BLOOD COUNT 10.9 10^3/ul (4.8-10.8)
[2019-01-08 06:57] LABS: ABNORMAL IP MESSAGE 1; BASOPHILS % 0.2 % (0.0-2.0); EOSINOPHILS # 0.2 10^3/ul (0.0-0.5); EOSINOPHILS % 1.5 % (0.0-7.0); HEMATOCRIT 24.4 % (42.0-52.0); HEMOGLOBIN 7.3 g/dl (14.0-18.0); LYMPHOCYTES # 0.8 10^3/ul (0.8-2.9); LYMPHOCYTES % 7.1 % (15.0-51.0); MEAN CORPUSCULAR HEMOGLOBIN 26.9 pg (29.0-33.0); MEAN CORPUSCULAR HGB CONC 29.9 g/dl (32.0-37.0); MEAN PLATELET VOLUME 10.9 fl (7.4-10.4); MONOCYTE # 1.8 10^3/ul (0.3-0.9); MONOCYTES % 16.1 % (0.0-11.0); NEUTROPHIL # 8.1 10^3/ul (1.6-7.5); PLATELET COUNT 300 10^3/UL (140-415); POSITIVE DIFF @See below; RED BLOOD COUNT 2.71 10^6/ul (4.70-6.10); RED CELL DISTRIBUTION WIDTH 19.4 % (11.5-14.5)
[2019-01-08 07:21] LABS: ANION GAP 4 (5-13); BLOOD UREA NITROGEN 25 mg/dl (7-20); CALCIUM 8.2 mg/dl (8.4-10.2); CARBON DIOXIDE 29 mmol/L (21-31); CHLORIDE 100 mmol/L (97-110); CREATININE 1.28 mg/dl (0.61-1.24); Estimated GFR 56 mL/min (>60); GLUCOSE 105 mg/dl (70-220); POTASSIUM 4.3 mmol/L (3.5-5.1); SODIUM 133 mmol/L (135-144)
[2019-01-08 07:24] LABS: INR 1.63; PROTIME 19.4 Sec (11.9-14.9); PT RATIO 1.5
[2019-01-08] MEDS: COLLAGENASE 5 GM (UD JAR) TOP (08:49)
[2019-01-08] MEDS: MUPIROCIN 2% 22 GM OINT TOP ×2 (08:49→20:17)
[2019-01-08] MEDS: FAMOTIDINE 20 MG INJ IV ×2 (08:49→20:17)
[2019-01-08] MEDS: AMLODIPINE 10 MG TAB PO (08:50)
[2019-01-08] MEDS: PANTOPRAZOLE (EC) 40 MG TAB PO (08:50)
[2019-01-08] MEDS: FLUOXETINE 20 MG CAP PO (08:50)
[2019-01-08] MEDS: LISINOPRIL 5 MG TAB PO (08:50)
[2019-01-08] MEDS: ASPIRIN (EC) 81 MG TAB PO (08:50)
[2019-01-08] MEDS: METOPROLOL (XL) 25 MG TAB PO (08:51)
[2019-01-08] MEDS: FUROSEMIDE 40 MG/4 ML CUP PO (08:51)
[2019-01-08] MEDS: INSULIN ASPART [NOVOLOG] 3 ML PEN SC ×7 (09:31→20:16)
[2019-01-08] MEDS: MAGNESIUM HYDROXIDE 30ML CUP PO (10:21)
[2019-01-08] MEDS: HYDROCODONE/APAP (5/325) TAB PO (10:22)
[2019-01-08] MEDS: VANCOMYCIN 1.25 GM/NS 250 ML 250 ML IVPB (12:15)
[2019-01-08] MEDS: LEVOFLOXACIN 500 MG TAB PO (12:15)
[2019-01-08] MEDS: ATORVASTATIN 80 MG TAB PO (20:17)
[2019-01-08] MEDS: TAMSULOSIN (SR) 0.4 MG CAP PO (20:17)
[2019-01-08] MEDS: INSULIN GLARGINE [LANTus] (100 UNITS/ML) SYG SC (20:31)
[2019-01-09] MEDS: ACCU-CHEK XX (01:09)
[2019-01-09] MEDS: HYDROCODONE/APAP (5/325) TAB PO ×2 (01:29→16:10)
[2019-01-09] MEDS: LEVOFLOXACIN 500 MG TAB PO (05:27)
[2019-01-09 07:10] LABS: ADD MAN DIFF? NO
[2019-01-09 07:20] LABS: ABNORMAL IP MESSAGE 1; BASOPHILS % 0.2 % (0.0-2.0); EOSINOPHILS # 0.2 10^3/ul (0.0-0.5); HEMATOCRIT 23.8 % (42.0-52.0); HEMOGLOBIN 7.1 g/dl (14.0-18.0); LYMPHOCYTES # 0.9 10^3/ul (0.8-2.9); LYMPHOCYTES % 8.9 % (15.0-51.0); MEAN CORPUSCULAR HEMOGLOBIN 27.5 pg (29.0-33.0); MEAN CORPUSCULAR HGB CONC 29.8 g/dl (32.0-37.0); MEAN CORPUSCULAR VOLUME 92.2 fl (82.0-101.0); MEAN PLATELET VOLUME 10.8 fl (7.4-10.4); MONOCYTE # 1.6 10^3/ul (0.3-0.9); MONOCYTES % 15.5 % (0.0-11.0); NEUTROPHIL # 7.2 10^3/ul (1.6-7.5); PLATELET COUNT 299 10^3/UL (140-415); POSITIVE DIFF @See below; RED BLOOD COUNT 2.58 10^6/ul (4.70-6.10); RED CELL DISTRIBUTION WIDTH 19.4 % (11.5-14.5)
[2019-01-09 07:43] LABS: ALANINE AMINOTRANSFERASE 23 IU/L (13-69); ALBUMIN 2.8 g/dl (3.3-4.9); ALBUMIN/GLOBULIN RATIO 0.87; ALKALINE PHOSPHATASE 83 IU/L (42-121); ANION GAP 6 (5-13); ASPARTATE AMINO TRANSFERASE 18 IU/L (15-46); BILIRUBIN,INDIRECT 0.7 mg/dl (0-1.1); BILIRUBIN,TOTAL 0.7 mg/dl (0.2-1.3); BLOOD UREA NITROGEN 31 mg/dl (7-20); CALCIUM 8.3 mg/dl (8.4-10.2); CARBON DIOXIDE 28 mmol/L (21-31); CHLORIDE 99 mmol/L (97-110); CREATININE 1.52 mg/dl (0.61-1.24); Estimated GFR 46 mL/min (>60); GLUCOSE 153 mg/dl (70-220); INR 1.56; POTASSIUM 4.8 mmol/L (3.5-5.1); PROTIME 18.8 Sec (11.9-14.9); PT RATIO 1.5; SODIUM 133 mmol/L (135-144)
[2019-01-09] MEDS: FUROSEMIDE 40 MG/4 ML CUP PO (08:20)
[2019-01-09] MEDS: ASPIRIN (EC) 81 MG TAB PO (08:22)
[2019-01-09] MEDS: AMLODIPINE 10 MG TAB PO (08:22)
[2019-01-09] MEDS: LISINOPRIL 5 MG TAB PO (08:22)
[2019-01-09] MEDS: METOPROLOL (XL) 25 MG TAB PO (08:24)
[2019-01-09] MEDS: FLUOXETINE 20 MG CAP PO (08:25)
[2019-01-09] MEDS: INSULIN ASPART [NOVOLOG] 3 ML PEN SC ×7 (08:34→20:06)
[2019-01-09] MEDS: COLLAGENASE 5 GM (UD JAR) TOP (10:39)
[2019-01-09] MEDS: PANTOPRAZOLE (EC) 40 MG TAB PO (12:08)
[2019-01-09] MEDS: FAMOTIDINE 20 MG INJ IV ×2 (12:08→20:08)
[2019-01-09] MEDS: MUPIROCIN 2% 22 GM OINT TOP ×2 (12:09→20:07)
[2019-01-09] MEDS: ALTEPLASE (CATHFLO) 2 MG INJ CATHETER ×2 (14:00→14:01)
[2019-01-09] MEDS: VANCOMYCIN 1.25 GM/NS 250 ML 250 ML IVPB (15:14)
[2019-01-09 15:26] LABS: IMMEDIATE SPIN CROSSMATCH 1
[2019-01-09] MEDS: EPOETIN ALFA-EPBX (NON-ESRD 10,000 UNIT/ML VIAL SC (17:42)
[2019-01-09] MEDS: SOD CHLORIDE 0.9% 250 ML IV* (19:54)
[2019-01-09] MEDS: TAMSULOSIN (SR) 0.4 MG CAP PO (20:07)
[2019-01-09] MEDS: ATORVASTATIN 80 MG TAB PO (20:07)
[2019-01-09] MEDS: MAGNESIUM HYDROXIDE 30ML CUP PO (20:18)
[2019-01-09] MEDS: INSULIN GLARGINE [LANTus] (100 UNITS/ML) SYG SC (20:30)
[2019-01-09 23:21] LABS: OCCULT BLOOD STOOL NEGATIVE (NEGATIVE)
[2019-01-10] MEDS: HYDROCODONE/APAP (5/325) TAB PO (00:37)
[2019-01-10] MEDS: ACCU-CHEK XX (01:08)
[2019-01-10] MEDS: morphine 2 MG INJ IV (03:32)
[2019-01-10] MEDS: LEVOFLOXACIN 500 MG TAB PO (05:17)
[2019-01-10] MEDS: INSULIN ASPART [NOVOLOG] 3 ML PEN SC ×7 (07:49→20:55)
[2019-01-10] MEDS: PANTOPRAZOLE (EC) 40 MG TAB PO (08:38)
[2019-01-10] MEDS: FAMOTIDINE 20 MG INJ IV ×2 (08:38→20:15)
[2019-01-10] MEDS: AMLODIPINE 10 MG TAB PO (08:39)
[2019-01-10] MEDS: FLUOXETINE 20 MG CAP PO (08:39)
[2019-01-10] MEDS: LISINOPRIL 5 MG TAB PO (08:40)
[2019-01-10] MEDS: FUROSEMIDE 40 MG/4 ML CUP PO (08:40)
[2019-01-10] MEDS: METOPROLOL (XL) 25 MG TAB PO (08:40)
[2019-01-10] MEDS: MUPIROCIN 2% 22 GM OINT TOP ×2 (08:41→20:15)
[2019-01-10] MEDS: ASPIRIN (EC) 81 MG TAB PO (08:41)
[2019-01-10 08:46] LABS: INR 1.29; PROTIME 16.2 Sec (11.9-14.9); PT RATIO 1.3
[2019-01-10] MEDS: COLLAGENASE 5 GM (UD JAR) TOP (09:00)
[2019-01-10 10:45] LABS: ADD MAN DIFF? NO
[2019-01-10 10:46] LABS: BASOPHILS % 0.4 % (0.0-2.0); EOSINOPHILS # 0.2 10^3/ul (0.0-0.5); HEMATOCRIT 25.4 % (42.0-52.0); HEMOGLOBIN 7.7 g/dl (14.0-18.0); LYMPHOCYTES # 0.9 10^3/ul (0.8-2.9); LYMPHOCYTES % 8.7 % (15.0-51.0); MEAN CORPUSCULAR HEMOGLOBIN 27.9 pg (29.0-33.0); MEAN CORPUSCULAR HGB CONC 30.3 g/dl (32.0-37.0); MEAN PLATELET VOLUME 10.9 fl (7.4-10.4); MONOCYTE # 1.4 10^3/ul (0.3-0.9); MONOCYTES % 13.7 % (0.0-11.0); NEUTROPHIL # 7.5 10^3/ul (1.6-7.5); NEUTROPHILS % 73.7 % (39.0-77.0); PLATELET COUNT 281 10^3/UL (140-415); RED BLOOD COUNT 2.76 10^6/ul (4.70-6.10); RED CELL DISTRIBUTION WIDTH 19.3 % (11.5-14.5)
[2019-01-10 10:46] LABS: WHITE BLOOD COUNT 10.2 10^3/ul (4.8-10.8)
[2019-01-10 12:46] LABS: VANCOMYCIN,TROUGH 10.1 ug/ml (10.0-20.0)
[2019-01-10] MEDS: VANCOMYCIN 1.25 GM/NS 250 ML 250 ML IVPB (12:54)
[2019-01-10 14:56] LABS: IMMEDIATE SPIN CROSSMATCH 1 1
[2019-01-10] MEDS: TAMSULOSIN (SR) 0.4 MG CAP PO (20:15)
[2019-01-10] MEDS: ATORVASTATIN 80 MG TAB PO (20:15)
[2019-01-10] MEDS: INSULIN GLARGINE [LANTus] (100 UNITS/ML) SYG SC (20:55)
[2019-01-11] MEDS: ACCU-CHEK XX (02:00)
[2019-01-11] MEDS: LEVOFLOXACIN 500 MG TAB PO (05:11)
[2019-01-11] MEDS: HYDROCODONE/APAP (5/325) TAB PO (05:12)
[2019-01-11] MEDS: COLLAGENASE 5 GM (UD JAR) TOP (08:38)
[2019-01-11] MEDS: FLUOXETINE 20 MG CAP PO (08:39)
[2019-01-11] MEDS: FAMOTIDINE 20 MG INJ IV (08:39)
[2019-01-11] MEDS: METOPROLOL (XL) 25 MG TAB PO (08:40)
[2019-01-11] MEDS: FUROSEMIDE 40 MG TAB PO (08:40)
[2019-01-11] MEDS: AMLODIPINE 10 MG TAB PO (08:40)
[2019-01-11] MEDS: ASPIRIN (EC) 81 MG TAB PO (08:41)
[2019-01-11] MEDS: LISINOPRIL 5 MG TAB PO (08:41)
[2019-01-11] MEDS: MUPIROCIN 2% 22 GM OINT TOP ×2 (08:41→20:30)
[2019-01-11] MEDS: PANTOPRAZOLE (EC) 40 MG TAB PO (08:41)
[2019-01-11] MEDS: INSULIN ASPART [NOVOLOG] 3 ML PEN SC ×7 (08:54→20:32)
[2019-01-11 10:51] LABS: ADD MAN DIFF? NO
[2019-01-11 10:56] LABS: BASOPHILS % 0.3 % (0.0-2.0); EOSINOPHILS # 0.2 10^3/ul (0.0-0.5); EOSINOPHILS % 1.3 % (0.0-7.0); HEMATOCRIT 28.1 % (42.0-52.0); HEMOGLOBIN 8.6 g/dl (14.0-18.0); LYMPHOCYTES # 0.9 10^3/ul (0.8-2.9); LYMPHOCYTES % 7.7 % (15.0-51.0); MEAN CORPUSCULAR HEMOGLOBIN 27.7 pg (29.0-33.0); MEAN CORPUSCULAR HGB CONC 30.6 g/dl (32.0-37.0); MEAN CORPUSCULAR VOLUME 90.4 fl (82.0-101.0); MEAN PLATELET VOLUME 10.8 fl (7.4-10.4); MONOCYTE # 1.4 10^3/ul (0.3-0.9); MONOCYTES % 12.1 % (0.0-11.0); NEUTROPHIL # 8.7 10^3/ul (1.6-7.5); NEUTROPHILS % 77.2 % (39.0-77.0); PLATELET COUNT 279 10^3/UL (140-415); RED BLOOD COUNT 3.11 10^6/ul (4.70-6.10); RED CELL DISTRIBUTION WIDTH 19.2 % (11.5-14.5)
[2019-01-11 10:56] LABS: WHITE BLOOD COUNT 11.2 10^3/ul (4.8-10.8)
[2019-01-11 11:13] LABS: ALANINE AMINOTRANSFERASE 24 IU/L (13-69); ALBUMIN 2.8 g/dl (3.3-4.9); ALBUMIN/GLOBULIN RATIO 0.87; ALKALINE PHOSPHATASE 95 IU/L (42-121); ANION GAP 3 (5-13); ASPARTATE AMINO TRANSFERASE 20 IU/L (15-46); BILIRUBIN,INDIRECT 0.8 mg/dl (0-1.1); BILIRUBIN,TOTAL 0.8 mg/dl (0.2-1.3); BLOOD UREA NITROGEN 36 mg/dl (7-20); CALCIUM 8.2 mg/dl (8.4-10.2); CARBON DIOXIDE 27 mmol/L (21-31); CHLORIDE 101 mmol/L (97-110); CREATININE 1.37 mg/dl (0.61-1.24); Estimated GFR 52 mL/min (>60); GLUCOSE 141 mg/dl (70-220); POTASSIUM 4.7 mmol/L (3.5-5.1); SODIUM 131 mmol/L (135-144)
[2019-01-11] MEDS: VANCOMYCIN 1.5 GM/NS 250 ML 250 ML IVPB (12:06)
[2019-01-11] MEDS: TAMSULOSIN (SR) 0.4 MG CAP PO (20:29)
[2019-01-11] MEDS: ATORVASTATIN 80 MG TAB PO (20:29)
[2019-01-11] MEDS: FAMOTIDINE 20 MG TAB PO (20:29)
[2019-01-11] MEDS: INSULIN GLARGINE [LANTus] (100 UNITS/ML) SYG SC (20:40)
[2019-01-12] MEDS: DEXTROSE 5%-0.45% NACL 1,000 ML IV (01:17)
[2019-01-12] MEDS: ACCU-CHEK XX (01:30)
[2019-01-12] MEDS: LEVOFLOXACIN 500 MG TAB PO (05:38)
[2019-01-12] MEDS: INSULIN ASPART [NOVOLOG] 3 ML PEN SC ×7 (08:05→21:00)
[2019-01-12 08:22] LABS: ADD MAN DIFF? NO
[2019-01-12 08:32] LABS: BASOPHILS % 0.4 % (0.0-2.0); EOSINOPHILS # 0.2 10^3/ul (0.0-0.5); HEMATOCRIT 27.9 % (42.0-52.0); HEMOGLOBIN 8.4 g/dl (14.0-18.0); LYMPHOCYTES # 0.8 10^3/ul (0.8-2.9); MEAN CORPUSCULAR HEMOGLOBIN 27.7 pg (29.0-33.0); MEAN CORPUSCULAR HGB CONC 30.1 g/dl (32.0-37.0); MEAN CORPUSCULAR VOLUME 92.1 fl (82.0-101.0); MEAN PLATELET VOLUME 10.8 fl (7.4-10.4); MONOCYTE # 1.4 10^3/ul (0.3-0.9); MONOCYTES % 12.6 % (0.0-11.0); NEUTROPHIL # 8.4 10^3/ul (1.6-7.5); NEUTROPHILS % 76.6 % (39.0-77.0); PLATELET COUNT 289 10^3/UL (140-415); RED BLOOD COUNT 3.03 10^6/ul (4.70-6.10); RED CELL DISTRIBUTION WIDTH 18.9 % (11.5-14.5)
[2019-01-12 08:53] LABS: ALANINE AMINOTRANSFERASE 23 IU/L (13-69); ALBUMIN 2.5 g/dl (3.3-4.9); ALBUMIN/GLOBULIN RATIO 0.89; ALKALINE PHOSPHATASE 91 IU/L (42-121); ANION GAP 6 (5-13); ASPARTATE AMINO TRANSFERASE 19 IU/L (15-46); BILIRUBIN,INDIRECT 0.8 mg/dl (0-1.1); BILIRUBIN,TOTAL 0.8 mg/dl (0.2-1.3); BLOOD UREA NITROGEN 33 mg/dl (7-20); CALCIUM 8.1 mg/dl (8.4-10.2); CARBON DIOXIDE 24 mmol/L (21-31); CHLORIDE 100 mmol/L (97-110); CREATININE 1.32 mg/dl (0.61-1.24); Estimated GFR 54 mL/min (>60); GLUCOSE 320 mg/dl (70-220); POTASSIUM 4.8 mmol/L (3.5-5.1); SODIUM 130 mmol/L (135-144); TOTAL PROTEIN 5.3 g/dl (6.1-8.1)
[2019-01-12] MEDS: PANTOPRAZOLE (EC) 40 MG TAB PO (09:00)
[2019-01-12] MEDS: FLUOXETINE 20 MG CAP PO (09:00)
[2019-01-12] MEDS: METOPROLOL (XL) 25 MG TAB PO (09:00)
[2019-01-12] MEDS: ASPIRIN (EC) 81 MG TAB PO (09:00)
[2019-01-12] MEDS: AMLODIPINE 10 MG TAB PO (09:00)
[2019-01-12] MEDS: FAMOTIDINE 20 MG TAB PO ×2 (09:00→21:50)
[2019-01-12] MEDS: DEXTROSE 5%-0.9% NACL 1,000 ML IV (11:16)
[2019-01-12] MEDS: MUPIROCIN 2% 22 GM OINT TOP ×2 (11:17→21:54)
[2019-01-12] MEDS: COLLAGENASE 5 GM (UD JAR) TOP (11:17)
[2019-01-12] MEDS: VANCOMYCIN 1.5 GM/NS 250 ML 250 ML IVPB (13:13)
[2019-01-12] MEDS: EPOETIN ALFA-EPBX (NON-ESRD 10,000 UNIT/ML VIAL SC (17:00)
[2019-01-12] MEDS ORDERED: FENTAnyl 50 MCG/ML VIAL (18:14)
[2019-01-12] MEDS ORDERED: MIDAZOLAM 1 MG/ML 2 ML INJ (18:14)
[2019-01-12] MEDS ORDERED: PROPOFOL 20 ML (18:14)
[2019-01-12] MEDS: BUPIVACAINE 0.5% (SDV) 30 ML INJ (18:28)
[2019-01-12] MEDS: LIDOCAINE 2% (MDV) 20 ML INJ (18:28)
[2019-01-12] MEDS: POLYMYXIN/BACITRACIN 1L IRRIG (18:28)
[2019-01-12] MEDS ORDERED: EPHEDrine 25 MG/5 ML SYG IV (19:00)
[2019-01-12] MEDS ORDERED: MIDAZOLAM 1 MG/ML 2 ML INJ IV (19:00)
[2019-01-12] MEDS ORDERED: MEPERIDINE 25 MG INJ IV (19:00)
[2019-01-12] MEDS ORDERED: DIPHENHYDRAMINE 50 MG INJ IV (19:00)
[2019-01-12] MEDS ORDERED: METOCLOPRAMIDE 10 MG INJ IV (19:00)
[2019-01-12] MEDS ORDERED: ONDANSETRON 4 MG INJ IV (19:00)
[2019-01-12] MEDS ORDERED: hydrALAzine 20 MG INJ IV (19:00)
[2019-01-12] MEDS ORDERED: FENTAnyl 50 MCG/ML VIAL IV ×3 (19:00)
[2019-01-12] MEDS ORDERED: LABETALOL HCL 20MG INJ IV (19:00)
[2019-01-12 19:05] LABS: SODIUM,URINE RANDOM 76 mmol/L (30-90)
[2019-01-12] MEDS: TAMSULOSIN (SR) 0.4 MG CAP PO (21:50)
[2019-01-12] MEDS: ATORVASTATIN 80 MG TAB PO (21:50)
[2019-01-12] MEDS: INSULIN GLARGINE [LANTus] (100 UNITS/ML) SYG SC (22:05)
[2019-01-13] MEDS: ACCU-CHEK XX (02:00)
[2019-01-13] MEDS: LEVOFLOXACIN 500 MG TAB PO (06:19)
[2019-01-13] MEDS: HYDROCODONE/APAP (5/325) TAB PO ×2 (06:21→20:40)
[2019-01-13] MEDS: INSULIN ASPART [NOVOLOG] 3 ML PEN SC ×7 (07:58→20:45)
[2019-01-13] MEDS: FAMOTIDINE 20 MG TAB PO ×2 (08:36→20:40)
[2019-01-13] MEDS: FLUOXETINE 20 MG CAP PO (08:36)
[2019-01-13] MEDS: PANTOPRAZOLE (EC) 40 MG TAB PO (08:36)
[2019-01-13] MEDS: COLLAGENASE 5 GM (UD JAR) TOP (08:36)
[2019-01-13] MEDS: ASPIRIN (EC) 81 MG TAB PO (08:36)
[2019-01-13] MEDS: METOPROLOL (XL) 25 MG TAB PO (08:37)
[2019-01-13] MEDS: AMLODIPINE 10 MG TAB PO (08:38)
[2019-01-13] MEDS: MUPIROCIN 2% 22 GM OINT TOP ×2 (08:39→20:41)
[2019-01-13] MEDS: FUROSEMIDE 40 MG TAB PO (08:45)
[2019-01-13 09:37] LABS: ADD MAN DIFF? NO
[2019-01-13 09:40] LABS: BASOPHILS % 0.2 % (0.0-2.0); EOSINOPHILS # 0.1 10^3/ul (0.0-0.5); HEMATOCRIT 27.9 % (42.0-52.0); HEMOGLOBIN 8.6 g/dl (14.0-18.0); LYMPHOCYTES # 0.6 10^3/ul (0.8-2.9); LYMPHOCYTES % 4.9 % (15.0-51.0); MEAN CORPUSCULAR HEMOGLOBIN 28.2 pg (29.0-33.0); MEAN CORPUSCULAR HGB CONC 30.8 g/dl (32.0-37.0); MEAN CORPUSCULAR VOLUME 91.5 fl (82.0-101.0); MEAN PLATELET VOLUME 10.3 fl (7.4-10.4); MONOCYTE # 1.4 10^3/ul (0.3-0.9); MONOCYTES % 11.1 % (0.0-11.0); NEUTROPHIL # 10.6 10^3/ul (1.6-7.5); NEUTROPHILS % 81.9 % (39.0-77.0); PLATELET COUNT 282 10^3/UL (140-415); RED BLOOD COUNT 3.05 10^6/ul (4.70-6.10); RED CELL DISTRIBUTION WIDTH 18.9 % (11.5-14.5)
[2019-01-13 09:40] LABS: WHITE BLOOD COUNT 12.9 10^3/ul (4.8-10.8)
[2019-01-13 10:08] LABS: ANION GAP 4 (5-13); BLOOD UREA NITROGEN 30 mg/dl (7-20); CALCIUM 8.6 mg/dl (8.4-10.2); CARBON DIOXIDE 27 mmol/L (21-31); CHLORIDE 102 mmol/L (97-110); CREATININE 1.13 mg/dl (0.61-1.24); Estimated GFR > 60 mL/min (>60); GLUCOSE 151 mg/dl (70-220); MAGNESIUM 1.9 mg/dl (1.7-2.5); PHOSPHORUS 3.6 mg/dl (2.5-4.9); POTASSIUM 4.9 mmol/L (3.5-5.1); SODIUM 133 mmol/L (135-144)
[2019-01-13 10:17] LABS: B-TYPE NATRIURETIC PEPTIDE 6000 PG/ML (0-125)
[2019-01-13] MEDS: VANCOMYCIN 1.5 GM/NS 250 ML 250 ML IVPB (12:21)
[2019-01-13 14:10] LABS: ADD UMIC YES; UR ASCORBIC ACID NEGATIVE (NEGATIVE); UR BILIRUBIN (Dip) NEGATIVE (NEGATIVE); UR BLOOD (Dip) 1+ mg/dL (NEGATIVE); UR CLARITY CLEAR (CLEAR); UR COLOR YELLOW (YELLOW); UR GLUCOSE (Dip) NEGATIVE (NEGATIVE); UR KETONES (Dip) NEGATIVE (NEGATIVE); UR LEUKOCYTE ESTERASE (Dip) NEGATIVE Leu/ul (NEGATIVE); UR NITRITE (Dip) NEGATIVE (NEGATIVE); UR RBC 0 /HPF (0-5); UR SPECIFIC GRAVITY (Dip) 1.014 (1.003-1.030); UR TOTAL PROTEIN (Dip) 2+ mg/dl (NEGATIVE); UR UROBILINOGEN (Dip) NEGATIVE (NEGATIVE); UR WBC 1 /HPF (0-5)
[2019-01-13] MEDS: TAMSULOSIN (SR) 0.4 MG CAP PO (20:40)
[2019-01-13] MEDS: ATORVASTATIN 80 MG TAB PO (20:40)
[2019-01-13] MEDS: INSULIN GLARGINE [LANTus] (100 UNITS/ML) SYG SC (20:45)
[2019-01-14] MEDS: ACCU-CHEK XX (01:00)
[2019-01-14] MEDS: LEVOFLOXACIN 500 MG TAB PO (06:05)
[2019-01-14] MEDS: INSULIN ASPART [NOVOLOG] 3 ML PEN SC ×7 (07:55→21:00)
[2019-01-14] MEDS: COLLAGENASE 5 GM (UD JAR) TOP (08:09)
[2019-01-14] MEDS: FAMOTIDINE 20 MG TAB PO ×2 (08:09→22:06)
[2019-01-14] MEDS: AMLODIPINE 10 MG TAB PO (08:10)
[2019-01-14] MEDS: ASPIRIN (EC) 81 MG TAB PO (08:10)
[2019-01-14] MEDS: FUROSEMIDE 40 MG TAB PO (08:10)
[2019-01-14] MEDS: PANTOPRAZOLE (EC) 40 MG TAB PO (08:10)
[2019-01-14] MEDS: METOPROLOL (XL) 25 MG TAB PO (08:11)
[2019-01-14] MEDS: FLUOXETINE 20 MG CAP PO (08:11)
[2019-01-14] MEDS: MUPIROCIN 2% 22 GM OINT TOP ×2 (08:12→21:00)
[2019-01-14] MEDS: WARFARIN 7.5 MG TAB PO (11:04)
[2019-01-14 11:23] LABS: ANION GAP 3 (5-13); BLOOD UREA NITROGEN 14 mg/dl (7-20); CARBON DIOXIDE 13 mmol/L (21-31); CHLORIDE 124 mmol/L (97-110); CREATININE 0.58 mg/dl (0.61-1.24); Estimated GFR > 60 mL/min (>60); PHOSPHORUS 1.9 mg/dl (2.5-4.9); SODIUM 140 mmol/L (135-144)
[2019-01-14 11:29] LABS: GLUCOSE 42 mg/dl (70-220)
[2019-01-14 11:32] LABS: CALCIUM 4.1 mg/dl (8.4-10.2)
[2019-01-14 11:33] LABS: POTASSIUM 2.3 mmol/L (3.5-5.1)
[2019-01-14 11:36] LABS: ADD MAN DIFF? NO
[2019-01-14] MEDS: VANCOMYCIN 1.5 GM/NS 250 ML 250 ML IVPB (12:13)
[2019-01-14 14:33] LABS: WHITE BLOOD COUNT 11.7 10^3/ul (4.8-10.8)
[2019-01-14 14:33] LABS: ABNORMAL IP MESSAGE 1; BASOPHILS % 0.3 % (0.0-2.0); EOSINOPHILS # 0.2 10^3/ul (0.0-0.5); EOSINOPHILS % 1.8 % (0.0-7.0); HEMATOCRIT 27.5 % (42.0-52.0); HEMOGLOBIN 8.3 g/dl (14.0-18.0); LYMPHOCYTES # 0.9 10^3/ul (0.8-2.9); LYMPHOCYTES % 7.4 % (15.0-51.0); MEAN CORPUSCULAR HEMOGLOBIN 27.9 pg (29.0-33.0); MEAN CORPUSCULAR HGB CONC 30.2 g/dl (32.0-37.0); MEAN CORPUSCULAR VOLUME 92.3 fl (82.0-101.0); MEAN PLATELET VOLUME 10.2 fl (7.4-10.4); MONOCYTE # 1.5 10^3/ul (0.3-0.9); MONOCYTES % 13.1 % (0.0-11.0); NEUTROPHILS % 76.7 % (39.0-77.0); PLATELET COUNT 274 10^3/UL (140-415); POSITIVE DIFF @See below; RED BLOOD COUNT 2.98 10^6/ul (4.70-6.10); RED CELL DISTRIBUTION WIDTH 18.8 % (11.5-14.5)
[2019-01-14 15:24] LABS: ANION GAP 5 (5-13); BLOOD UREA NITROGEN 28 mg/dl (7-20); CALCIUM 8.4 mg/dl (8.4-10.2); CARBON DIOXIDE 27 mmol/L (21-31); CHLORIDE 101 mmol/L (97-110); CREATININE 1.15 mg/dl (0.61-1.24); Estimated GFR > 60 mL/min (>60); GLUCOSE 83 mg/dl (70-220); MAGNESIUM 1.7 mg/dl (1.7-2.5); PHOSPHORUS 4.3 mg/dl (2.5-4.9); POTASSIUM 4.8 mmol/L (3.5-5.1); SODIUM 133 mmol/L (135-144)
[2019-01-14] MEDS: MAGNESIUM SULFATE 2 GM/50 ML 50 ML IVPB (17:12)
[2019-01-14] MEDS: EPOETIN ALFA-EPBX (NON-ESRD 10,000 UNIT/ML VIAL SC (17:48)
[2019-01-14] MEDS: ATORVASTATIN 80 MG TAB PO (22:06)
[2019-01-14] MEDS: TAMSULOSIN (SR) 0.4 MG CAP PO (22:06)
[2019-01-14] MEDS: INSULIN GLARGINE [LANTus] (100 UNITS/ML) SYG SC (22:27)
[2019-01-15] MEDS: ACCU-CHEK XX (02:00)
[2019-01-15] MEDS: LEVOFLOXACIN 500 MG TAB PO (06:09)
[2019-01-15] MEDS: INSULIN ASPART [NOVOLOG] 3 ML PEN SC ×7 (07:55→21:00)
[2019-01-15] MEDS: FLUOXETINE 20 MG CAP PO (08:08)
[2019-01-15] MEDS: PANTOPRAZOLE (EC) 40 MG TAB PO (08:08)
[2019-01-15] MEDS: AMLODIPINE 10 MG TAB PO (08:09)
[2019-01-15 08:10] LABS: ADD MAN DIFF? NO
[2019-01-15] MEDS: ASPIRIN (EC) 81 MG TAB PO (08:10)
[2019-01-15] MEDS: FUROSEMIDE 40 MG TAB PO (08:11)
[2019-01-15] MEDS: FAMOTIDINE 20 MG TAB PO ×2 (08:11→21:30)
[2019-01-15] MEDS: METOPROLOL (XL) 25 MG TAB PO (08:13)
[2019-01-15 08:14] LABS: BASOPHILS % 0.4 % (0.0-2.0); EOSINOPHILS # 0.2 10^3/ul (0.0-0.5); EOSINOPHILS % 2.2 % (0.0-7.0); HEMOGLOBIN 8.5 g/dl (14.0-18.0); LYMPHOCYTES # 0.7 10^3/ul (0.8-2.9); LYMPHOCYTES % 6.7 % (15.0-51.0); MEAN CORPUSCULAR HEMOGLOBIN 27.5 pg (29.0-33.0); MEAN CORPUSCULAR HGB CONC 30.4 g/dl (32.0-37.0); MEAN CORPUSCULAR VOLUME 90.6 fl (82.0-101.0); MEAN PLATELET VOLUME 10.5 fl (7.4-10.4); MONOCYTE # 1.4 10^3/ul (0.3-0.9); MONOCYTES % 12.7 % (0.0-11.0); NEUTROPHIL # 8.6 10^3/ul (1.6-7.5); NEUTROPHILS % 77.4 % (39.0-77.0); PLATELET COUNT 254 10^3/UL (140-415); RED BLOOD COUNT 3.09 10^6/ul (4.70-6.10); RED CELL DISTRIBUTION WIDTH 18.8 % (11.5-14.5)
[2019-01-15 08:14] LABS: WHITE BLOOD COUNT 11.1 10^3/ul (4.8-10.8)
[2019-01-15] MEDS: TRIMETHOPRIM/SULFAMETHOX (DS) TAB NGT ×2 (08:14→21:30)
[2019-01-15] MEDS: AMOXICILLIN/CLAV 875 MG TAB PO ×2 (08:14→21:35)
[2019-01-15 08:25] LABS: INR 1.15; PROTIME 14.8 Sec (11.9-14.9); PT RATIO 1.2
[2019-01-15 08:49] LABS: ANION GAP 6 (5-13); BLOOD UREA NITROGEN 29 mg/dl (7-20); CALCIUM 8.6 mg/dl (8.4-10.2); CARBON DIOXIDE 27 mmol/L (21-31); CHLORIDE 99 mmol/L (97-110); CREATININE 1.13 mg/dl (0.61-1.24); Estimated GFR > 60 mL/min (>60); GLUCOSE 103 mg/dl (70-220); POTASSIUM 4.7 mmol/L (3.5-5.1); SODIUM 132 mmol/L (135-144)
[2019-01-15] MEDS: WARFARIN 7.5 MG TAB PO (09:02)
[2019-01-15] MEDS: COLLAGENASE 5 GM (UD JAR) TOP (09:03)
[2019-01-15] MEDS: MUPIROCIN 2% 22 GM OINT TOP ×2 (09:03→21:00)
[2019-01-15 09:16] LABS: ERYTHROCYTE SEDIMENTATION RATE 55 mm/Hr (0-20)
[2019-01-15] MEDS: INSULIN GLARGINE [LANTus] (100 UNITS/ML) SYG SC (20:00)
[2019-01-15] MEDS: ATORVASTATIN 80 MG TAB PO (21:30)
[2019-01-15] MEDS: TAMSULOSIN (SR) 0.4 MG CAP PO (21:31)
[2019-01-16] MEDS: ACCU-CHEK XX (01:28)
[2019-01-16] MEDS: INSULIN ASPART [NOVOLOG] 3 ML PEN SC ×7 (07:55→21:00)
[2019-01-16] MEDS: ASPIRIN (EC) 81 MG TAB PO ×2 (08:30→09:16)
[2019-01-16] MEDS: TRIMETHOPRIM/SULFAMETHOX (DS) TAB NGT ×3 (08:30→20:57)
[2019-01-16] MEDS: FUROSEMIDE 40 MG TAB PO ×3 (08:30→09:55)
[2019-01-16] MEDS: AMOXICILLIN/CLAV 875 MG TAB PO ×3 (08:30→20:56)
[2019-01-16] MEDS: AMLODIPINE 10 MG TAB PO ×2 (08:31→09:00)
[2019-01-16] MEDS: FAMOTIDINE 20 MG TAB PO ×3 (08:31→20:57)
[2019-01-16] MEDS: PANTOPRAZOLE (EC) 40 MG TAB PO ×2 (08:32→09:16)
[2019-01-16] MEDS: COLLAGENASE 5 GM (UD JAR) TOP (08:32)
[2019-01-16] MEDS: FLUOXETINE 20 MG CAP PO ×2 (08:32→09:16)
[2019-01-16] MEDS: METOPROLOL (XL) 25 MG TAB PO ×3 (08:32→09:56)
[2019-01-16] MEDS: MUPIROCIN 2% 22 GM OINT TOP ×3 (08:32→20:57)
[2019-01-16 14:15] LABS: ADD MAN DIFF? NO
[2019-01-16 14:17] LABS: BASOPHIL # 0.1 10^3/ul (0.0-0.1); BASOPHILS % 0.4 % (0.0-2.0); EOSINOPHILS # 0.2 10^3/ul (0.0-0.5); EOSINOPHILS % 1.6 % (0.0-7.0); HEMATOCRIT 29.6 % (42.0-52.0); HEMOGLOBIN 9.3 g/dl (14.0-18.0); LYMPHOCYTES # 0.7 10^3/ul (0.8-2.9); LYMPHOCYTES % 5.4 % (15.0-51.0); MEAN CORPUSCULAR HEMOGLOBIN 27.8 pg (29.0-33.0); MEAN CORPUSCULAR HGB CONC 31.4 g/dl (32.0-37.0); MEAN CORPUSCULAR VOLUME 88.4 fl (82.0-101.0); MEAN PLATELET VOLUME 10.1 fl (7.4-10.4); MONOCYTE # 1.2 10^3/ul (0.3-0.9); MONOCYTES % 10.3 % (0.0-11.0); NEUTROPHIL # 9.8 10^3/ul (1.6-7.5); NEUTROPHILS % 81.7 % (39.0-77.0); PLATELET COUNT 316 10^3/UL (140-415); RED BLOOD COUNT 3.35 10^6/ul (4.70-6.10); RED CELL DISTRIBUTION WIDTH 18.6 % (11.5-14.5)
[2019-01-16 14:36] LABS: ANION GAP 7 (5-13); BLOOD UREA NITROGEN 26 mg/dl (7-20); CALCIUM 8.8 mg/dl (8.4-10.2); CARBON DIOXIDE 25 mmol/L (21-31); CHLORIDE 99 mmol/L (97-110); CREATININE 1.15 mg/dl (0.61-1.24); Estimated GFR > 60 mL/min (>60); GLUCOSE 149 mg/dl (70-220); POTASSIUM 4.6 mmol/L (3.5-5.1); SODIUM 131 mmol/L (135-144)
[2019-01-16 14:40] LABS: PROTIME 15.3 Sec (11.9-14.9); PT RATIO 1.2
[2019-01-16] MEDS: EPOETIN ALFA-EPBX (NON-ESRD 10,000 UNIT/ML VIAL SC (17:37)
[2019-01-16] MEDS: ATORVASTATIN 80 MG TAB PO (20:57)
[2019-01-16] MEDS: TAMSULOSIN (SR) 0.4 MG CAP PO (20:57)
[2019-01-16] MEDS: INSULIN GLARGINE [LANTus] (100 UNITS/ML) SYG SC (21:04)
[2019-01-17] MEDS: ACCU-CHEK XX (02:00)
[2019-01-17] MEDS: INSULIN ASPART [NOVOLOG] 3 ML PEN SC ×7 (07:55→21:00)
[2019-01-17] MEDS: PANTOPRAZOLE (EC) 40 MG TAB PO (08:04)
[2019-01-17] MEDS: TRIMETHOPRIM/SULFAMETHOX (DS) TAB NGT ×2 (08:04→21:55)
[2019-01-17] MEDS: FLUOXETINE 20 MG CAP PO (08:04)
[2019-01-17] MEDS: AMOXICILLIN/CLAV 875 MG TAB PO ×2 (08:04→21:55)
[2019-01-17] MEDS: FAMOTIDINE 20 MG TAB PO ×2 (08:04→21:55)
[2019-01-17] MEDS: MUPIROCIN 2% 22 GM OINT TOP ×2 (08:04→21:56)
[2019-01-17] MEDS: ASPIRIN (EC) 81 MG TAB PO (08:04)
[2019-01-17] MEDS: COLLAGENASE 5 GM (UD JAR) TOP (08:05)
[2019-01-17] MEDS: METOPROLOL (XL) 25 MG TAB PO (08:06)
[2019-01-17] MEDS: FUROSEMIDE 40 MG TAB PO (08:07)
[2019-01-17] MEDS: AMLODIPINE 10 MG TAB PO (08:07)
[2019-01-17] MEDS: WARFARIN 7.5 MG TAB PO (17:59)
[2019-01-17] MEDS: TAMSULOSIN (SR) 0.4 MG CAP PO (21:55)
[2019-01-17] MEDS: ATORVASTATIN 80 MG TAB PO (21:55)
[2019-01-17] MEDS: INSULIN GLARGINE [LANTus] (100 UNITS/ML) SYG SC (22:00)
[2019-01-18] MEDS: ACCU-CHEK XX (02:00)
[2019-01-18] MEDS: INSULIN ASPART [NOVOLOG] 3 ML PEN SC ×7 (07:55→21:00)
[2019-01-18] MEDS: ASPIRIN (EC) 81 MG TAB PO (08:16)
[2019-01-18] MEDS: FLUOXETINE 20 MG CAP PO (08:16)
[2019-01-18] MEDS: AMOXICILLIN/CLAV 875 MG TAB PO ×2 (08:16→21:33)
[2019-01-18] MEDS: PANTOPRAZOLE (EC) 40 MG TAB PO (08:16)
[2019-01-18] MEDS: FUROSEMIDE 40 MG TAB PO (08:17)
[2019-01-18] MEDS: TRIMETHOPRIM/SULFAMETHOX (DS) TAB NGT ×2 (08:17→21:33)
[2019-01-18] MEDS: FAMOTIDINE 20 MG TAB PO ×2 (08:17→21:33)
[2019-01-18] MEDS: AMLODIPINE 10 MG TAB PO (08:17)
[2019-01-18] MEDS: MUPIROCIN 2% 22 GM OINT TOP ×2 (08:18→21:34)
[2019-01-18] MEDS: COLLAGENASE 5 GM (UD JAR) TOP (08:18)
[2019-01-18] MEDS: METOPROLOL (XL) 25 MG TAB PO (08:18)
[2019-01-18 15:00] LABS: ADD MAN DIFF? NO
[2019-01-18 15:01] LABS: ABNORMAL IP MESSAGE 1; BASOPHILS % 0.3 % (0.0-2.0); EOSINOPHILS # 0.2 10^3/ul (0.0-0.5); EOSINOPHILS % 2.3 % (0.0-7.0); HEMOGLOBIN 9.5 g/dl (14.0-18.0); LYMPHOCYTES # 0.6 10^3/ul (0.8-2.9); LYMPHOCYTES % 5.6 % (15.0-51.0); MEAN CORPUSCULAR HEMOGLOBIN 27.5 pg (29.0-33.0); MEAN CORPUSCULAR HGB CONC 30.6 g/dl (32.0-37.0); MEAN CORPUSCULAR VOLUME 89.6 fl (82.0-101.0); MEAN PLATELET VOLUME 9.8 fl (7.4-10.4); MONOCYTE # 1.4 10^3/ul (0.3-0.9); MONOCYTES % 13.4 % (0.0-11.0); NEUTROPHIL # 8.2 10^3/ul (1.6-7.5); NEUTROPHILS % 77.8 % (39.0-77.0); PLATELET COUNT 314 10^3/UL (140-415); POSITIVE DIFF @See below; RED BLOOD COUNT 3.46 10^6/ul (4.70-6.10); RED CELL DISTRIBUTION WIDTH 18.6 % (11.5-14.5)
[2019-01-18 15:01] LABS: WHITE BLOOD COUNT 10.5 10^3/ul (4.8-10.8)
[2019-01-18 15:20] LABS: ANION GAP 7 (5-13); BLOOD UREA NITROGEN 24 mg/dl (7-20); CALCIUM 8.9 mg/dl (8.4-10.2); CARBON DIOXIDE 27 mmol/L (21-31); CHLORIDE 97 mmol/L (97-110); CREATININE 1.25 mg/dl (0.61-1.24); Estimated GFR 57 mL/min (>60); GLUCOSE 116 mg/dl (70-220); MAGNESIUM 1.6 mg/dl (1.7-2.5); PHOSPHORUS 3.9 mg/dl (2.5-4.9); POTASSIUM 4.3 mmol/L (3.5-5.1); SODIUM 131 mmol/L (135-144)
[2019-01-18 15:21] LABS: INR 1.36; PROTIME 16.9 Sec (11.9-14.9); PT RATIO 1.3
[2019-01-18] MEDS ORDERED: WARFARIN 7.5 MG TAB PO (17:00)
[2019-01-18] MEDS: WARFARIN 7.5 MG TAB PO (17:34)
[2019-01-18] MEDS: TAMSULOSIN (SR) 0.4 MG CAP PO (21:33)
[2019-01-18] MEDS: ATORVASTATIN 80 MG TAB PO (21:33)
[2019-01-18] MEDS: INSULIN GLARGINE [LANTus] (100 UNITS/ML) SYG SC (21:44)
[2019-01-18 22:34] LABS: CREATININE,URINE RANDOM 38.74 mg/dl (20-370); PROTEIN/CREAT RATIO 2.14 RATIO
[2019-01-19] MEDS: ACCU-CHEK XX (01:18)
[2019-01-19 07:03] LABS: ADD MAN DIFF? NO
[2019-01-19 07:05] LABS: BASOPHILS % 0.4 % (0.0-2.0); EOSINOPHILS # 0.3 10^3/ul (0.0-0.5); EOSINOPHILS % 2.8 % (0.0-7.0); HEMATOCRIT 30.7 % (42.0-52.0); HEMOGLOBIN 9.5 g/dl (14.0-18.0); LYMPHOCYTES # 0.6 10^3/ul (0.8-2.9); LYMPHOCYTES % 6.4 % (15.0-51.0); MEAN CORPUSCULAR HEMOGLOBIN 27.4 pg (29.0-33.0); MEAN CORPUSCULAR HGB CONC 30.9 g/dl (32.0-37.0); MEAN CORPUSCULAR VOLUME 88.5 fl (82.0-101.0); MEAN PLATELET VOLUME 9.8 fl (7.4-10.4); MONOCYTE # 1.5 10^3/ul (0.3-0.9); MONOCYTES % 14.7 % (0.0-11.0); NEUTROPHIL # 7.5 10^3/ul (1.6-7.5); PLATELET COUNT 303 10^3/UL (140-415); RED BLOOD COUNT 3.47 10^6/ul (4.70-6.10); RED CELL DISTRIBUTION WIDTH 18.7 % (11.5-14.5)
[2019-01-19 07:05] LABS: WHITE BLOOD COUNT 9.9 10^3/ul (4.8-10.8)
[2019-01-19 07:24] LABS: PROTIME 18.2 Sec (11.9-14.9); PT RATIO 1.4
[2019-01-19 07:35] LABS: ANION GAP 6 (5-13); Estimated GFR 55 mL/min (>60)
[2019-01-19 07:45] LABS: BLOOD UREA NITROGEN 24 mg/dl (7-20); CALCIUM 8.6 mg/dl (8.4-10.2); CARBON DIOXIDE 27 mmol/L (21-31); CHLORIDE 99 mmol/L (97-110); GLUCOSE 74 mg/dl (70-220); MAGNESIUM 1.6 mg/dl (1.7-2.5); PHOSPHORUS 4.1 mg/dl (2.5-4.9); POTASSIUM 4.3 mmol/L (3.5-5.1); SODIUM 132 mmol/L (135-144)
[2019-01-19] MEDS: INSULIN ASPART [NOVOLOG] 3 ML PEN SC ×7 (07:55→21:00)
[2019-01-19] MEDS: PANTOPRAZOLE (EC) 40 MG TAB PO (08:12)
[2019-01-19] MEDS: AMOXICILLIN/CLAV 875 MG TAB PO ×2 (08:12→21:31)
[2019-01-19] MEDS: FLUOXETINE 20 MG CAP PO (08:12)
[2019-01-19] MEDS: FAMOTIDINE 20 MG TAB PO ×2 (08:13→21:32)
[2019-01-19] MEDS: FUROSEMIDE 40 MG TAB PO (08:13)
[2019-01-19] MEDS: ASPIRIN (EC) 81 MG TAB PO (08:13)
[2019-01-19] MEDS: TRIMETHOPRIM/SULFAMETHOX (DS) TAB NGT ×2 (08:13→21:32)
[2019-01-19] MEDS: AMLODIPINE 10 MG TAB PO (08:13)
[2019-01-19] MEDS: MUPIROCIN 2% 22 GM OINT TOP ×2 (08:14→21:36)
[2019-01-19] MEDS: METOPROLOL (XL) 25 MG TAB PO (08:14)
[2019-01-19] MEDS: COLLAGENASE 5 GM (UD JAR) TOP (08:14)
[2019-01-19] MEDS: MAGNESIUM OXIDE 400 MG TAB PO ×2 (09:59→21:32)
[2019-01-19] MEDS: WARFARIN 7.5 MG TAB PO (17:51)
[2019-01-19] MEDS: TAMSULOSIN (SR) 0.4 MG CAP PO (21:31)
[2019-01-19] MEDS: ATORVASTATIN 80 MG TAB PO (21:32)
[2019-01-19] MEDS: EPOETIN ALFA-EPBX (NON-ESRD 10,000 UNIT/ML VIAL SC (21:33)
[2019-01-19] MEDS: INSULIN GLARGINE [LANTus] (100 UNITS/ML) SYG SC (21:44)
[2019-01-20] MEDS: ACCU-CHEK XX (02:00)
[2019-01-20] MEDS: INSULIN ASPART [NOVOLOG] 3 ML PEN SC ×7 (07:55→21:00)
[2019-01-20] MEDS: ASPIRIN (EC) 81 MG TAB PO (08:14)
[2019-01-20] MEDS: MAGNESIUM OXIDE 400 MG TAB PO ×2 (08:14→21:43)
[2019-01-20] MEDS: PANTOPRAZOLE (EC) 40 MG TAB PO (08:14)
[2019-01-20] MEDS: AMLODIPINE 10 MG TAB PO (08:14)
[2019-01-20] MEDS: FAMOTIDINE 20 MG TAB PO ×2 (08:14→21:43)
[2019-01-20] MEDS: FLUOXETINE 20 MG CAP PO (08:15)
[2019-01-20] MEDS: AMOXICILLIN/CLAV 875 MG TAB PO ×2 (08:15→21:43)
[2019-01-20] MEDS: METOPROLOL (XL) 25 MG TAB PO (08:15)
[2019-01-20] MEDS: MUPIROCIN 2% 22 GM OINT TOP ×2 (08:15→21:44)
[2019-01-20] MEDS: TRIMETHOPRIM/SULFAMETHOX (DS) TAB NGT ×2 (08:15→21:43)
[2019-01-20] MEDS: FUROSEMIDE 40 MG TAB PO (08:15)
[2019-01-20] MEDS: COLLAGENASE 5 GM (UD JAR) TOP (09:00)
[2019-01-20] MEDS: WARFARIN 7.5 MG TAB PO (17:11)
[2019-01-20] MEDS: ATORVASTATIN 80 MG TAB PO (21:43)
[2019-01-20] MEDS: TAMSULOSIN (SR) 0.4 MG CAP PO (21:43)
[2019-01-20] MEDS: INSULIN GLARGINE [LANTus] (100 UNITS/ML) SYG SC (21:51)
[2019-01-21] MEDS: ACETAMINOPHEN 325 MG TAB PO (00:34)
[2019-01-21] MEDS: ACCU-CHEK XX (02:00)
[2019-01-21] MEDS: INSULIN ASPART [NOVOLOG] 3 ML PEN SC ×8 (07:55→21:00)
[2019-01-21] MEDS: FUROSEMIDE 40 MG TAB PO (08:45)
[2019-01-21] MEDS: METOPROLOL (XL) 25 MG TAB PO (08:46)
[2019-01-21] MEDS: ASPIRIN (EC) 81 MG TAB PO (08:46)
[2019-01-21] MEDS: AMOXICILLIN/CLAV 875 MG TAB PO ×2 (08:46→21:13)
[2019-01-21] MEDS: AMLODIPINE 10 MG TAB PO (08:47)
[2019-01-21] MEDS: TRIMETHOPRIM/SULFAMETHOX (DS) TAB NGT ×2 (08:47→21:13)
[2019-01-21] MEDS: PANTOPRAZOLE (EC) 40 MG TAB PO (08:47)
[2019-01-21] MEDS: FAMOTIDINE 20 MG TAB PO ×2 (08:47→21:14)
[2019-01-21] MEDS: FLUOXETINE 20 MG CAP PO (08:48)
[2019-01-21] MEDS: MAGNESIUM OXIDE 400 MG TAB PO ×2 (08:48→21:13)
[2019-01-21] MEDS: MUPIROCIN 2% 22 GM OINT TOP ×2 (08:48→21:15)
[2019-01-21] MEDS: COLLAGENASE 5 GM (UD JAR) TOP (08:51)
[2019-01-21 08:57] LABS: ADD MAN DIFF? NO
[2019-01-21 09:04] LABS: WHITE BLOOD COUNT 9.5 10^3/ul (4.8-10.8)
[2019-01-21 09:04] LABS: BASOPHILS % 0.4 % (0.0-2.0); EOSINOPHILS # 0.3 10^3/ul (0.0-0.5); EOSINOPHILS % 3.4 % (0.0-7.0); HEMATOCRIT 30.8 % (42.0-52.0); HEMOGLOBIN 9.6 g/dl (14.0-18.0); LYMPHOCYTES # 0.8 10^3/ul (0.8-2.9); LYMPHOCYTES % 7.9 % (15.0-51.0); MEAN CORPUSCULAR HEMOGLOBIN 27.7 pg (29.0-33.0); MEAN CORPUSCULAR HGB CONC 31.2 g/dl (32.0-37.0); MEAN CORPUSCULAR VOLUME 88.8 fl (82.0-101.0); MEAN PLATELET VOLUME 9.6 fl (7.4-10.4); MONOCYTE # 1.2 10^3/ul (0.3-0.9); NEUTROPHIL # 7.1 10^3/ul (1.6-7.5); NEUTROPHILS % 74.7 % (39.0-77.0); PLATELET COUNT 314 10^3/UL (140-415); RED BLOOD COUNT 3.47 10^6/ul (4.70-6.10); RED CELL DISTRIBUTION WIDTH 18.6 % (11.5-14.5)
[2019-01-21 09:18] LABS: ANION GAP 9 (5-13); BLOOD UREA NITROGEN 24 mg/dl (7-20); CALCIUM 8.7 mg/dl (8.4-10.2); CARBON DIOXIDE 25 mmol/L (21-31); CHLORIDE 98 mmol/L (97-110); CREATININE 1.46 mg/dl (0.61-1.24); Estimated GFR 48 mL/min (>60); GLUCOSE 116 mg/dl (70-220); MAGNESIUM 1.8 mg/dl (1.7-2.5); PHOSPHORUS 3.7 mg/dl (2.5-4.9); POTASSIUM 4.6 mmol/L (3.5-5.1); SODIUM 132 mmol/L (135-144)
[2019-01-21 09:38] LABS: INR 2.04; PROTIME 23.1 Sec (11.9-14.9); PT RATIO 1.8
[2019-01-21] MEDS: EPOETIN ALFA-EPBX (NON-ESRD 10,000 UNIT/ML VIAL SC (17:47)
[2019-01-21] MEDS: WARFARIN 7.5 MG TAB PO (18:07)
[2019-01-21] MEDS: TAMSULOSIN (SR) 0.4 MG CAP PO (21:13)
[2019-01-21] MEDS: ATORVASTATIN 80 MG TAB PO (21:14)
[2019-01-21] MEDS: INSULIN GLARGINE [LANTus] (100 UNITS/ML) SYG SC (21:15)
[2019-01-22] MEDS: ACCU-CHEK XX (02:00)
[2019-01-22 07:16] LABS: INR 2.43; PROTIME 26.5 Sec (11.9-14.9); PT RATIO 2.1
[2019-01-22] MEDS: TRIMETHOPRIM/SULFAMETHOX (DS) TAB NGT ×2 (08:14→21:18)
[2019-01-22] MEDS: AMLODIPINE 10 MG TAB PO (08:14)
[2019-01-22] MEDS: MUPIROCIN 2% 22 GM OINT TOP ×2 (08:14→21:18)
[2019-01-22] MEDS: AMOXICILLIN/CLAV 875 MG TAB PO ×2 (08:14→20:01)
[2019-01-22] MEDS: FLUOXETINE 20 MG CAP PO (08:14)
[2019-01-22] MEDS: FAMOTIDINE 20 MG TAB PO ×2 (08:15→20:01)
[2019-01-22] MEDS: PANTOPRAZOLE (EC) 40 MG TAB PO (08:15)
[2019-01-22] MEDS: ASPIRIN (EC) 81 MG TAB PO (08:15)
[2019-01-22] MEDS: MAGNESIUM OXIDE 400 MG TAB PO ×2 (08:15→20:01)
[2019-01-22] MEDS: FUROSEMIDE 40 MG TAB PO (08:15)
[2019-01-22] MEDS: METOPROLOL (XL) 25 MG TAB PO (08:16)
[2019-01-22] MEDS: INSULIN ASPART [NOVOLOG] 3 ML PEN SC ×7 (08:22→20:13)
[2019-01-22] MEDS: COLLAGENASE 5 GM (UD JAR) TOP (08:27)
[2019-01-22] MEDS: WARFARIN 7.5 MG TAB PO (09:08)
[2019-01-22] MEDS: ATORVASTATIN 80 MG TAB PO (20:01)
[2019-01-22] MEDS: TAMSULOSIN (SR) 0.4 MG CAP PO (20:01)
[2019-01-22] MEDS: INSULIN GLARGINE [LANTus] (100 UNITS/ML) SYG SC (20:13)
[2019-01-23] MEDS: ACCU-CHEK XX (03:38)
[2019-01-23 07:17] LABS: ADD MAN DIFF? NO
[2019-01-23 07:33] LABS: WHITE BLOOD COUNT 9.5 10^3/ul (4.8-10.8)
[2019-01-23 07:33] LABS: BASOPHIL # 0.1 10^3/ul (0.0-0.1); BASOPHILS % 0.5 % (0.0-2.0); EOSINOPHILS # 0.4 10^3/ul (0.0-0.5); EOSINOPHILS % 3.7 % (0.0-7.0); HEMATOCRIT 31.6 % (42.0-52.0); HEMOGLOBIN 9.7 g/dl (14.0-18.0); LYMPHOCYTES # 0.9 10^3/ul (0.8-2.9); LYMPHOCYTES % 9.7 % (15.0-51.0); MEAN CORPUSCULAR HEMOGLOBIN 27.5 pg (29.0-33.0); MEAN CORPUSCULAR HGB CONC 30.7 g/dl (32.0-37.0); MEAN CORPUSCULAR VOLUME 89.5 fl (82.0-101.0); MEAN PLATELET VOLUME 9.5 fl (7.4-10.4); MONOCYTE # 1.1 10^3/ul (0.3-0.9); MONOCYTES % 11.5 % (0.0-11.0); PLATELET COUNT 318 10^3/UL (140-415); RED BLOOD COUNT 3.53 10^6/ul (4.70-6.10); RED CELL DISTRIBUTION WIDTH 18.7 % (11.5-14.5)
[2019-01-23 07:51] LABS: ANION GAP 7 (5-13); BLOOD UREA NITROGEN 24 mg/dl (7-20); CALCIUM 8.9 mg/dl (8.4-10.2); CARBON DIOXIDE 28 mmol/L (21-31); CHLORIDE 97 mmol/L (97-110); CREATININE 1.43 mg/dl (0.61-1.24); Estimated GFR 49 mL/min (>60); GLUCOSE 114 mg/dl (70-220); INR 2.95; MAGNESIUM 1.9 mg/dl (1.7-2.5); PHOSPHORUS 3.4 mg/dl (2.5-4.9); POTASSIUM 4.7 mmol/L (3.5-5.1); PROTIME 30.8 Sec (11.9-14.9); PT RATIO 2.4; SODIUM 132 mmol/L (135-144)
[2019-01-23] MEDS: INSULIN ASPART [NOVOLOG] 3 ML PEN SC ×7 (07:55→20:51)
[2019-01-23] MEDS: AMOXICILLIN/CLAV 875 MG TAB PO ×2 (08:24→20:51)
[2019-01-23] MEDS: AMLODIPINE 10 MG TAB PO (08:25)
[2019-01-23] MEDS: FLUOXETINE 20 MG CAP PO (08:25)
[2019-01-23] MEDS: PANTOPRAZOLE (EC) 40 MG TAB PO (08:25)
[2019-01-23] MEDS: FAMOTIDINE 20 MG TAB PO ×2 (08:26→20:51)
[2019-01-23] MEDS: TRIMETHOPRIM/SULFAMETHOX (DS) TAB NGT ×2 (08:26→20:51)
[2019-01-23] MEDS: MAGNESIUM OXIDE 400 MG TAB PO ×2 (08:26→20:51)
[2019-01-23] MEDS: ASPIRIN (EC) 81 MG TAB PO (08:26)
[2019-01-23] MEDS: FUROSEMIDE 40 MG TAB PO (08:27)
[2019-01-23] MEDS: METOPROLOL (XL) 25 MG TAB PO (08:27)
[2019-01-23] MEDS: MUPIROCIN 2% 22 GM OINT TOP ×2 (08:28→21:05)
[2019-01-23] MEDS: COLLAGENASE 5 GM (UD JAR) TOP (08:28)
[2019-01-23] MEDS: EPOETIN ALFA-EPBX (NON-ESRD 10,000 UNIT/ML VIAL SC (18:25)
[2019-01-23] MEDS: ATORVASTATIN 80 MG TAB PO (20:51)
[2019-01-23] MEDS: TAMSULOSIN (SR) 0.4 MG CAP PO (20:51)
[2019-01-23] MEDS: INSULIN GLARGINE [LANTus] (100 UNITS/ML) SYG SC (21:03)
[2019-01-24] MEDS: ACCU-CHEK XX (02:00)
[2019-01-24] MEDS: INSULIN ASPART [NOVOLOG] 3 ML PEN SC ×7 (07:55→21:00)
[2019-01-24] MEDS: TRIMETHOPRIM/SULFAMETHOX (DS) TAB NGT ×2 (08:50→20:34)
[2019-01-24] MEDS: FLUOXETINE 20 MG CAP PO (08:50)
[2019-01-24] MEDS: AMOXICILLIN/CLAV 875 MG TAB PO ×2 (08:50→20:34)
[2019-01-24] MEDS: FAMOTIDINE 20 MG TAB PO ×2 (08:51→20:34)
[2019-01-24] MEDS: PANTOPRAZOLE (EC) 40 MG TAB PO (08:51)
[2019-01-24] MEDS: AMLODIPINE 10 MG TAB PO (08:51)
[2019-01-24] MEDS: METOPROLOL (XL) 25 MG TAB PO (08:52)
[2019-01-24] MEDS: MAGNESIUM OXIDE 400 MG TAB PO ×2 (08:52→20:34)
[2019-01-24] MEDS: ASPIRIN (EC) 81 MG TAB PO (08:53)
[2019-01-24] MEDS: FUROSEMIDE 40 MG TAB PO (08:53)
[2019-01-24] MEDS: COLLAGENASE 5 GM (UD JAR) TOP (08:54)
[2019-01-24] MEDS: MUPIROCIN 2% 22 GM OINT TOP ×2 (08:54→20:34)
[2019-01-24] MEDS: TAMSULOSIN (SR) 0.4 MG CAP PO (20:34)
[2019-01-24] MEDS: ATORVASTATIN 80 MG TAB PO (20:34)
[2019-01-24] MEDS: INSULIN GLARGINE [LANTus] (100 UNITS/ML) SYG SC (20:50)
[2019-01-25] MEDS: ACCU-CHEK XX (02:00)
[2019-01-25 06:43] LABS: ADD MAN DIFF? NO
[2019-01-25 06:48] LABS: WHITE BLOOD COUNT 9.2 10^3/ul (4.8-10.8)
[2019-01-25 06:48] LABS: BASOPHIL # 0.1 10^3/ul (0.0-0.1); BASOPHILS % 0.5 % (0.0-2.0); EOSINOPHILS # 0.4 10^3/ul (0.0-0.5); EOSINOPHILS % 3.8 % (0.0-7.0); HEMATOCRIT 31.2 % (42.0-52.0); HEMOGLOBIN 9.6 g/dl (14.0-18.0); LYMPHOCYTES # 0.9 10^3/ul (0.8-2.9); LYMPHOCYTES % 9.7 % (15.0-51.0); MEAN CORPUSCULAR HEMOGLOBIN 27.1 pg (29.0-33.0); MEAN CORPUSCULAR HGB CONC 30.8 g/dl (32.0-37.0); MEAN CORPUSCULAR VOLUME 88.1 fl (82.0-101.0); MEAN PLATELET VOLUME 9.7 fl (7.4-10.4); MONOCYTE # 0.9 10^3/ul (0.3-0.9); MONOCYTES % 10.2 % (0.0-11.0); NEUTROPHIL # 6.9 10^3/ul (1.6-7.5); PLATELET COUNT 315 10^3/UL (140-415); RED BLOOD COUNT 3.54 10^6/ul (4.70-6.10); RED CELL DISTRIBUTION WIDTH 18.6 % (11.5-14.5)
[2019-01-25 07:18] LABS: ANION GAP 7 (5-13); BLOOD UREA NITROGEN 34 mg/dl (7-20); CALCIUM 8.8 mg/dl (8.4-10.2); CARBON DIOXIDE 26 mmol/L (21-31); CHLORIDE 97 mmol/L (97-110); CREATININE 1.53 mg/dl (0.61-1.24); Estimated GFR 45 mL/min (>60); GLUCOSE 107 mg/dl (70-220); PHOSPHORUS 4.1 mg/dl (2.5-4.9); POTASSIUM 5.2 mmol/L (3.5-5.1); SODIUM 130 mmol/L (135-144)
[2019-01-25] MEDS: INSULIN ASPART [NOVOLOG] 3 ML PEN SC ×7 (07:55→21:00)
[2019-01-25] MEDS: ASPIRIN (EC) 81 MG TAB PO (08:17)
[2019-01-25] MEDS: FLUOXETINE 20 MG CAP PO (08:18)
[2019-01-25] MEDS: FUROSEMIDE 40 MG TAB PO (08:18)
[2019-01-25] MEDS: AMLODIPINE 10 MG TAB PO (08:18)
[2019-01-25] MEDS: FAMOTIDINE 20 MG TAB PO ×2 (08:18→21:23)
[2019-01-25] MEDS: TRIMETHOPRIM/SULFAMETHOX (DS) TAB NGT (08:18)
[2019-01-25] MEDS: MAGNESIUM OXIDE 400 MG TAB PO ×2 (08:18→21:23)
[2019-01-25] MEDS: AMOXICILLIN/CLAV 875 MG TAB PO (08:18)
[2019-01-25] MEDS: PANTOPRAZOLE (EC) 40 MG TAB PO (08:18)
[2019-01-25] MEDS: MUPIROCIN 2% 22 GM OINT TOP ×2 (08:19→21:00)
[2019-01-25] MEDS: METOPROLOL (XL) 25 MG TAB PO (08:19)
[2019-01-25] MEDS: COLLAGENASE 5 GM (UD JAR) TOP (08:19)
[2019-01-25 10:43] LABS: INR 2.39; PROTIME 26.1 Sec (11.9-14.9)
[2019-01-25] MEDS: TAMSULOSIN (SR) 0.4 MG CAP PO (21:23)
[2019-01-25] MEDS: ATORVASTATIN 80 MG TAB PO (21:23)
[2019-01-25] MEDS: INSULIN GLARGINE [LANTus] (100 UNITS/ML) SYG SC (21:32)
[2019-01-26] MEDS: ACCU-CHEK XX (02:00)
[2019-01-26] MEDS: INSULIN ASPART [NOVOLOG] 3 ML PEN SC ×7 (07:55→21:00)
[2019-01-26] MEDS: PANTOPRAZOLE (EC) 40 MG TAB PO (08:51)
[2019-01-26] MEDS: MAGNESIUM OXIDE 400 MG TAB PO ×2 (08:51→21:00)
[2019-01-26] MEDS: AMLODIPINE 10 MG TAB PO (08:51)
[2019-01-26] MEDS: ASPIRIN (EC) 81 MG TAB PO (08:52)
[2019-01-26] MEDS: FAMOTIDINE 20 MG TAB PO ×2 (08:52→21:00)
[2019-01-26] MEDS: FLUOXETINE 20 MG CAP PO (08:52)
[2019-01-26] MEDS: METOPROLOL (XL) 25 MG TAB PO (08:52)
[2019-01-26] MEDS: COLLAGENASE 5 GM (UD JAR) TOP (08:53)
[2019-01-26 11:17] LABS: ADD MAN DIFF? NO
[2019-01-26 11:22] LABS: WHITE BLOOD COUNT 8.7 10^3/ul (4.8-10.8)
[2019-01-26 11:22] LABS: BASOPHIL # 0.1 10^3/ul (0.0-0.1); BASOPHILS % 0.7 % (0.0-2.0); EOSINOPHILS # 0.3 10^3/ul (0.0-0.5); EOSINOPHILS % 3.9 % (0.0-7.0); HEMATOCRIT 30.4 % (42.0-52.0); HEMOGLOBIN 9.4 g/dl (14.0-18.0); LYMPHOCYTES # 0.8 10^3/ul (0.8-2.9); LYMPHOCYTES % 9.4 % (15.0-51.0); MEAN CORPUSCULAR HEMOGLOBIN 27.6 pg (29.0-33.0); MEAN CORPUSCULAR HGB CONC 30.9 g/dl (32.0-37.0); MEAN CORPUSCULAR VOLUME 89.4 fl (82.0-101.0); MEAN PLATELET VOLUME 9.7 fl (7.4-10.4); MONOCYTE # 0.8 10^3/ul (0.3-0.9); MONOCYTES % 8.9 % (0.0-11.0); NEUTROPHIL # 6.7 10^3/ul (1.6-7.5); NEUTROPHILS % 76.5 % (39.0-77.0); PLATELET COUNT 334 10^3/UL (140-415); RED CELL DISTRIBUTION WIDTH 18.5 % (11.5-14.5)
[2019-01-26 11:39] LABS: ANION GAP 6 (5-13); BLOOD UREA NITROGEN 33 mg/dl (7-20); CALCIUM 8.7 mg/dl (8.4-10.2); CARBON DIOXIDE 26 mmol/L (21-31); CHLORIDE 98 mmol/L (97-110); CREATININE 1.48 mg/dl (0.61-1.24); Estimated GFR 47 mL/min (>60); GLUCOSE 126 mg/dl (70-220); MAGNESIUM 1.9 mg/dl (1.7-2.5); PHOSPHORUS 3.9 mg/dl (2.5-4.9); POTASSIUM 5.1 mmol/L (3.5-5.1); SODIUM 130 mmol/L (135-144)
[2019-01-26 11:46] LABS: INR 2.12; PROTIME 23.8 Sec (11.9-14.9); PT RATIO 1.9
[2019-01-26] MEDS: TOLVAPTAN 15 MG TABLET PO (17:00)
[2019-01-26] MEDS: WARFARIN 10 MG TAB PO (17:01)
[2019-01-26] MEDS: EPOETIN ALFA-EPBX (NON-ESRD 10,000 UNIT/ML VIAL SC (17:02)
[2019-01-26] MEDS: INSULIN GLARGINE [LANTus] (100 UNITS/ML) SYG SC (20:00)
[2019-01-26] MEDS: ATORVASTATIN 80 MG TAB PO (21:00)
[2019-01-26] MEDS: TAMSULOSIN (SR) 0.4 MG CAP PO (21:00)
[2019-01-27] MEDS: ACCU-CHEK XX (01:19)
[2019-01-27] MEDS: INSULIN ASPART [NOVOLOG] 3 ML PEN SC ×7 (07:55→20:20)
[2019-01-27] MEDS: AMLODIPINE 10 MG TAB PO (09:11)
[2019-01-27] MEDS: FLUOXETINE 20 MG CAP PO (09:11)
[2019-01-27] MEDS: MAGNESIUM OXIDE 400 MG TAB PO ×2 (09:12→20:24)
[2019-01-27] MEDS: PANTOPRAZOLE (EC) 40 MG TAB PO (09:12)
[2019-01-27] MEDS: ASPIRIN (EC) 81 MG TAB PO (09:12)
[2019-01-27] MEDS: FAMOTIDINE 20 MG TAB PO ×2 (09:12→20:20)
[2019-01-27] MEDS: METOPROLOL (XL) 25 MG TAB PO (09:13)
[2019-01-27] MEDS: COLLAGENASE 5 GM (UD JAR) TOP (09:14)
[2019-01-27 09:39] LABS: INR 2.02; PROTIME 22.9 Sec (11.9-14.9); PT RATIO 1.8
[2019-01-27 09:43] LABS: ANION GAP 5 (5-13); BLOOD UREA NITROGEN 33 mg/dl (7-20); CALCIUM 9.1 mg/dl (8.4-10.2); CARBON DIOXIDE 26 mmol/L (21-31); CHLORIDE 101 mmol/L (97-110); CREATININE 1.64 mg/dl (0.61-1.24); Estimated GFR 42 mL/min (>60); GLUCOSE 110 mg/dl (70-220); POTASSIUM 5.3 mmol/L (3.5-5.1); SODIUM 132 mmol/L (135-144)
[2019-01-27] MEDS: WARFARIN 10 MG TAB PO (18:56)
[2019-01-27] MEDS: TOLVAPTAN 15 MG TABLET PO (20:19)
[2019-01-27] MEDS: TAMSULOSIN (SR) 0.4 MG CAP PO (20:19)
[2019-01-27] MEDS: ATORVASTATIN 80 MG TAB PO (20:20)
[2019-01-27] MEDS: INSULIN GLARGINE [LANTus] (100 UNITS/ML) SYG SC (20:22)
== END 2019-01-27 20:40 | DRG 240 ==
LOC: REC 05:35 → ICU 11:55 → TEL 01-02 12:41
PROC: 041 Lower Arteries, Bypass (ICD-10-PCS; principal; 2019-01-01 07:57)
PROC: 0Y6N0ZF Detachment at Left Foot, Partial 5th Ray, Open Approach (ICD-10-PCS; 2019-01-01 07:57)
PROC: 0JBR0ZZ Excision of Left Foot Subcutaneous Tissue and Fascia, Open Approach (ICD-10-PCS; 2019-01-01 07:57)
PROC: 02HV33Z Insertion of Infusion Device into Superior Vena Cava, Percutaneous Approach (ICD-10-PCS; 2019-01-01 07:57)
PROC: 30233K1 Transfusion of Nonautologous Frozen Plasma into Peripheral Vein, Percutaneous Approach (ICD-10-PCS; 2019-01-01 07:57)
PROC: 30233N1 Transfusion of Nonautologous Red Blood Cells into Peripheral Vein, Percutaneous Approach (ICD-10-PCS; 2019-01-01 07:57)
DX: E11.51 Type 2 diabetes mellitus with diabetic peripheral angiopathy without gangrene (principal); N18.4 Chronic kidney disease, stage 4 (severe); E87.1 Hypo-osmolality and hyponatremia; I97.621 Postprocedural hematoma of a circulatory system organ or structure following other procedure; D62 Acute posthemorrhagic anemia; Z68.41 Body mass index [BMI] 40.0-44.9, adult; I42.9 Cardiomyopathy, unspecified; M86.9 Osteomyelitis, unspecified; M86.672 Other chronic osteomyelitis, left ankle and foot; D64.9 Anemia, unspecified; E11.69 Type 2 diabetes mellitus with other specified complication; E11.22 Type 2 diabetes mellitus with diabetic chronic kidney disease; E11.621 Type 2 diabetes mellitus with foot ulcer; E87.70 Fluid overload, unspecified; E61.1 Iron deficiency; E66.01 Morbid (severe) obesity due to excess calories; I12.9 Hypertensive chronic kidney disease with stage 1 through stage 4 chronic kidney disease, or unspecified chronic kidney disease; L97.529 Non-pressure chronic ulcer of other part of left foot with unspecified severity; N40.0 Benign prostatic hyperplasia without lower urinary tract symptoms; I48.2 Chronic atrial fibrillation; I25.10 Atherosclerotic heart disease of native coronary artery without angina pectoris; Z89.421 Acquired absence of other right toe(s); Z95.1 Presence of aortocoronary bypass graft; Z79.01 Long term (current) use of anticoagulants; Z79.4 Long term (current) use of insulin; Z79.82 Long term (current) use of aspirin; Z87.891 Personal history of nicotine dependence
CPT/HCPCS: 36430; 71045; 73620; 73630-LT; 76536; 76937; 80048; 80053; 80061; 80202; 81001; 81003; 82270; 82570; 82728; 82962; 83036; 83540; 83735; 83880; 84100; 84300; 84436; 84443; 84479; 85025; 85049; 85610; 85651; 85670; 85730; 86140; 86850; 86900; 86901; 86920; 87070; 87081; 88305; 97110; 97116; 97162; 97164; 97530; 99217

== ENCOUNTER 2019-02-16 11:51 | Emergency (ER) | payer MEDICARE, MEDICAID ==
[2019-02-16 13:37] LABS: ADD MAN DIFF? NO
[2019-02-16 13:43] LABS: WHITE BLOOD COUNT 10.7 10^3/ul (4.8-10.8)
[2019-02-16 13:43] LABS: BASOPHILS % 0.4 % (0.0-2.0); EOSINOPHILS # 0.3 10^3/ul (0.0-0.5); EOSINOPHILS % 3.2 % (0.0-7.0); HEMATOCRIT 32.2 % (42.0-52.0); LYMPHOCYTES # 0.8 10^3/ul (0.8-2.9); LYMPHOCYTES % 7.7 % (15.0-51.0); MEAN CORPUSCULAR HEMOGLOBIN 27.5 pg (29.0-33.0); MEAN CORPUSCULAR HGB CONC 31.1 g/dl (32.0-37.0); MEAN CORPUSCULAR VOLUME 88.5 fl (82.0-101.0); MEAN PLATELET VOLUME 10.1 fl (7.4-10.4); MONOCYTE # 1.2 10^3/ul (0.3-0.9); MONOCYTES % 11.3 % (0.0-11.0); NEUTROPHIL # 8.3 10^3/ul (1.6-7.5); PLATELET COUNT 295 10^3/UL (140-415); RED BLOOD COUNT 3.64 10^6/ul (4.70-6.10); RED CELL DISTRIBUTION WIDTH 17.5 % (11.5-14.5)
== END 2019-02-16 15:00 | disposition home or self-care (01) ==
LOC: E/R 11:51
DX: Z48.00 Encounter for change or removal of nonsurgical wound dressing (principal); E11.9 Type 2 diabetes mellitus without complications; I11.0 Hypertensive heart disease with heart failure; I50.9 Heart failure, unspecified; Z79.4 Long term (current) use of insulin; Z87.891 Personal history of nicotine dependence; Z79.82 Long term (current) use of aspirin
CPT/HCPCS: 36415; 85025; 99283